=== PATIENT | female | born 1955 | race Caucasian/White ===

== ENCOUNTER 2017-08-28 08:09 | Outpatient (CLI) | payer BC ==
[2017-08-28] MEDS ORDERED: Sodium Chloride 0.9% 15 ML NEB ONE (09:00)
--- NOTE | 2017-08-28 09:11 | PRG ---
DATE OF SERVICE: 08/28/2017 HISTORY: Ms. Asuncion Grimaldo is a very pleasant 62-year-old [facility] now presents for evaluation of multiple blisters of the left groin and multiple ulcerations of the right and left medial buttocks. The patient states that she has been applying a topical antifungal preparation to the blisters of the left groin. 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 The patient states that she also sits for long periods of time at work. PHYSICAL EXAMINATION: VITAL SIGNS: Temperature 98.1, pulse 67, respirations 18, blood pressure 152/74. EXTREMITIES: Multiple blisters of the left groin are present in the intertriginous region of the lef t groin. No blisters are present in the intertriginous region of the right groin. BACK: Multiple ulcerations of the right and left medial buttocks associated with hypergranulation ar e present. ASSESSMENT AND PLAN: 1. Blisters of the left groin and lesions of right and left medial buttocks associated with hypergra nulation. The blisters and ulcerations are located in intertriginous regions. I have instructed the patient to apply the topical antifungal preparation to the lesions of the right and left medial butt ocks in addition to the blisters of the left groin after cleansing with soap and water and patting dr mayorga. She is also to dress the lesions with an ABD. The patient understands and is in agreement with t he preceding treatment plan. Ms. Leslie will return to clinic on a p.r.n. basis. 2. Hypertension. 3. Osteoarthritis. 4. Gastroesophageal reflux disease.
== END 2017-08-28 08:10 | disposition home or self-care (01) ==
LOC: WCC 08:09
PROVIDERS: ATTEND Family Medicine
DX: L98.419 Non-pressure chronic ulcer of buttock with unspecified severity (principal); S30.820A Blister (nonthermal) of lower back and pelvis, initial encounter; I10 Essential (primary) hypertension; M19.90 Unspecified osteoarthritis, unspecified site; K21.9 Gastro-esophageal reflux disease without esophagitis
CPT/HCPCS: 97602; 99212; A4218; G0463

== ENCOUNTER 2018-11-21 13:44 | Emergency (ER) | payer BC ==
--- NOTE | 2018-11-21 14:15 | RAD ---
2 VIEWS RIGHT HIP: Date: 11/21/18 COMPARISON: None. HISTORY: Mechanical fall with right hip pain. FINDINGS: Two views of the right hip are limited secondary to patient's large body habitus. There is no evidenc e of fracture or dislocation. No significant degenerative change is seen in the right hip. IMPRESSION: No evidence of acute osseous abnormality. POS: TPC
--- NOTE | 2018-11-21 16:10 | CT ---
FCT Lower Ext Rt WO Con History:Fall with right hip pain Comparison: Plain film examination done earlier today. Findings: There is an avulsion fracture which is at or possibly slightly above the level the anterior superior iliac spine of the iliac crest. There is also an incompletely healed fracture of the right side of the symphysis bony changes and some sclerosis along the fracture line suggests this is probab ly an older avulsive type injury although there could be some acute on chronic element. There are mild arthritic changes of the right hip. No femoral neck fractures appreciated. The bones are diffusely demineralized. There is generalized muscle atrophy, this is particularly pron ounced in the tensor fascial nguyen and inferior aspect of the rectus femoris muscles. Impression: Avulsion type fracture involving the region of the anterior superior iliac spine. This is felt to probably be acute. 2. Deformity to the right side of the symphysis which is favored to represent an older insufficiency type fracture, incompletely healed.
== END 2018-11-21 18:48 | disposition home or self-care (01) ==
LOC: ERS 13:44
DX: S32.311A Displaced avulsion fracture of right ilium, initial encounter for closed fracture (principal); I10 Essential (primary) hypertension; F32.9 Major depressive disorder, single episode, unspecified; Z79.899 Other long term (current) drug therapy; X50.1XXA Overexertion from prolonged static or awkward postures, initial encounter

== ENCOUNTER 2019-01-28 17:58 | Inpatient (IN) | payer BC, OTHER ==
--- NOTE | 2019-01-28 18:34 | CT ---
EXAM: CT brain without contrast HISTORY: Altered mental status COMPARISON: None TECHNIQUE: Multiple contiguous axial images were obtained and a CT of the brain without contrast. FINDINGS: There are subtle scattered hypodensities in the subcortical and periventricular white matte r consistent with small vessel ischemic disease. There is no evidence of hydrocephalus, intracranial hemorrhage, or extra-axial fluid collection. The calvarium and overlying soft tissues are unremarkable. The visualized paranasal sinuses and masto id air cells are well aerated. IMPRESSION: No evidence of acute intracranial abnormality
[2019-01-28 19:03] LABS: #Lymphocytes 2.1 thou/uL (1.20-3.40); #Monocytes 0.9 thou/uL (0.11-0.59); #Neutrophils 10.5 thou/uL (1.40-6.50); %Basophils 0.1 % (0.0-1.0); %Eosinophils 0.3 % (0.0-10.0); %Lymphocytes 15.2 % (21.0-51.0); %Monocytes 6.8 % (0.0-10.0); %Neutrophils 77.7 % (42.0-75.0); Hemoglobin 9.5 g/dL (12.0-16.0); Mean Corpuscular HGB CONC 32.1 g/dL (32.0-36.0); Mean Corpuscular Volume 90.1 fL (78.0-98.0); Mean Platelet Volume 7.4 fL (7.4-10.4); Platelet Count 264 thou/uL (130-400); RBC Distribution Width 14.7 % (11.5-14.5); White Blood Cell (WBC) Count 13.5 thou/uL (4.8-10.8)
--- NOTE | 2019-01-28 19:03 | RAD ---
EXAM: Single view of the chest HISTORY: Altered mental status; sepsis COMPARISON: None FINDINGS: Single view of the chest shows a normal sized cardiomediastinal silhouette. Atheroscleroti c calcifications are seen in the aorta. There is a PICC line with its tip in the superior vena cava. There is no evidence of consolidation, mass, or pleural effusion. The bones are unremarkable. IMPRESSION: No evidence of acute cardiopulmonary disease
[2019-01-28 19:29] LABS: ALT (SGPT) 17 U/L (8-55); AST (SGOT) 70 U/L (5-34); Albumin 3.9 g/dL (3.4-4.8); Alkaline Phosphatase 95 U/L (40-150); Anion Gap 17 mmol/L (10-20); BUN (Urea Nitrogen) 24 mg/dL (9.8-20.1); Bilirubin, Total 0.5 mg/dL (0.2-1.2); Calc. Creatinine Clearance 0 mL/min (70-130); Calcium 9.6 mg/dL (7.8-10.44); Carbon Dioxide 23 mmol/L (23-31); Chloride 91 mmol/L (98-107); Estimated GFR-MDRD 38; Globulin 3.9 g/dL (2.4-3.5); Glucose 98 mg/dL (80-115); Potassium 4.9 mmol/L (3.5-5.1); Protein, Total 7.8 g/dL (6.0-8.3); Sodium 126 mmol/L (136-145)
[2019-01-28 19:49] LABS: Bilirubin Negative (Negative); Blood, Urine Trace (Negative); Clarity CLOUDY (Clear); Glucose, Urine (Dipstick) Negative (Negative); Leukocyte Moderate (Negative); Nitrite Negative (Negative); Protein, Urine (Dipstick) 100 mg/dL (Neg-Trace); Specific Gravity, Urine 1.018 (1.002-1.036); Urobilinogen 0.2 mg/dL (0.2-1.0)
[2019-01-28 19:54] LABS: Bacteria/HPF 1+ HPF (None Seen); Hyaline Casts/LPF 0-3 HYALINE CAST LPF (0-3 Hyaline); RBC/HPF 21-50 HPF (0-3); Squamous Epithelial 0-3 HPF (0-3); WBC/HPF 21-50 HPF (0-3)
[2019-01-28] MEDS ORDERED: MEROPENEM 1 GM/50 ML 1 GM in Premix Bag 1 BAG IVPB SCH (22:45)
--- NOTE | 2019-01-28 23:44 | HP ---
PRIMARY CARE PHYSICIAN: Dr. Hammer. PRIMARY INFECTIOUS DOCTOR: Dr. Toro. REASON FOR ADMISSION: Sent from senior care for encephalopathy. HISTORY OF PRESENT ILLNESS: This is a 63-year-old female, who has lumbar spine infection and she has PICC line and she is getting IV antibiotic therapy. She was recently admitted about 2-3 weeks ago and subsequently, she was discharged to [facility] for IV antibiotic therapy. She was getting Teflaro as well as daptomycin antibiotic therapy through PICC line for the last 2 to 3 weeks. Even she was getting IV antibiotic therapy for last week, the patient is gradually getting worse with mental status elena, she was hallucinating. She was confused. She was becoming more and more weak. She is normally wheelchair bound, but she was having more shortness of breath. She was wheezing at senior care. She was having poor appetite. She did not have any diarrhea. The patient's family member also noticed rash over both feet. The patient was becoming more and more confused and that is why family member concerned about and that is why they brought her to emergency room for evaluation. This patient has chronic spine infection and she required multiple times antibiotic therapy in the past as well. REVIEW OF SYSTEMS: CONSTITUTIONAL: Negative for weight loss or gain, ability to conduct usual activities. SKIN: Negative for rash, itching. EYES: Negative for double vision, pain. ENT/MOUTH: Negative for nose bleeding, neck stiffness, pain, tenderness. CARDIOVASCULAR: Negative for palpitations, dyspnea on exertion, orthopnea. RESPIRATORY: Negative for shortness of breath, wheezing, cough, hemoptysis, fever or night sweats. GASTROINTESTINAL: Negative for poor appetite, abdominal pain, heartburn, nausea , vomiting, constipation, or diarrhea. GENITOURINARY: Negative for urgency, frequency, dysuria, nocturia. MUSCULOSKELETAL: Negative for pain, swelling. NEUROLOGIC/PSYCHIATRIC: Negative for anxiety, depression. ALLERGY/IMMUNOLOGIC: Negative for skin rash, bleeding tendency. All review of systems mentioned above is not reliable because of encephalopathy. 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 PAST PSYCHIATRIC HISTORY: Anxiety and depression. PAST SURGICAL HISTORY: Right great toe surgery and PICC line placement. FAMILY HISTORY: No family history of coronary artery disease, stroke, or cancer. ALLERGIES: LEVAQUIN, PENICILLIN, AND MORPHINE. CURRENT HOME MEDICATIONS: The patient was gettin. Amlodipine 10 mg daily. 2. Metoprolol 25 mg twice daily. 3. Calcium 1 tablet twice daily. 4. Vitamin B12 1000 mcg p.o. daily. 5. Flexeril 10 mg t.i.d. p.r.n. 6. Folic acid 1 mg daily. 7. Hydralazine 25 mg t.i.d. 8. Hydrochlorothiazide 25 mg p.o. daily. 9. Levothyroxine 25 mcg p.o. daily. 10. Multivitamin one tablet p.o. daily. 11. Protonix 40 mg daily. 12. Paxil 10 mg daily. 13. Prednisone 20 mg daily. 14. Thiamine 100 mg p.o. daily. 15. The patient was on Teflaro and daptomycin for IV antibiotic therapy. EMERGENCY ROOM COURSE: The patient is receiving meropenem. The patient is given DuoNeb therapy. SOCIAL HISTORY: Pt is from [facility], no history of tobacco, alcohol or drug abuse. PHYSICAL EXAMINATION: VITAL SIGNS: Currently, blood pressure 152/102, pulse 85, respiratory rate 25, temperature 98.4, saturation 100% on room air, weight 95.3 kg. GENERAL: The patient is currently hallucinating, confused, intermittently responds properly, but most of the time she is hallucinating and confused. HEENT: Head; normocephalic, atraumatic. Eyes; pupils round and reactive to light. Extraocular muscle intact. ENT; oropharynx within normal limits. Moist mucous membranes. NECK: Supple. Mostly wheezing comes from upper airway. LUNGS: Clear on auscultation without any gross rhonchi or rales. CARDIAC: S1, S2 appears regular without any murmur. ABDOMEN: Obesity present. Bowel sounds present. Nontender. Nondistended. No organomegaly. No mass. Mild suprapubic discomfort noted. EXTREMITIES: Upper extremities; PICC line in place in the right arm, clean, dry , and intact. Upper extremities within normal limit. Lower extremities, the patient does have a petechial rash on both feet. Trace edema noted. No calf tenderness. SKIN: Petechial rash noted on feet. PSYCHIATRIC: Hallucinating. NEUROLOGIC: Grossly nonfocal examination. She is moving all 4 limbs. SIGNIFICANT LABORATORY DATA: EKG showing normal sinus rhythm, within normal limits. Head CT, based on my review no acute intracranial process. Chest x-ray based on my review, no acute cardiopulmonary process. CBC; WBC 13.5, hemoglobin 9.5, platelet 264 with left shift. BMP; sodium 126, potassium 4.9, chloride 91, carbon dioxide 23, anion gap 17, BUN 24, creatinine 1.40, glucose 98, calcium 9.6, lactic acid 1.1, LFT; AST 70, ALT 17, alkaline phosphatase 95, albumin 3.9. BNP 224.5. Troponin 0.012. Urinalysis consistent with urinary tract infection. ASSESSMENT AND PLAN: Impression: 1. Acute metabolic and septic encephalopathy. The patient has hyponatremia, urinary tract infection. She has methicillin-resistant Staphylococcus aureus epidural abscess and she is on different antibiotic therapy, all contributing to her altered mental status. 2. Urinary tract infection. We will continue with meropenem one 500 mg IV q.8 hourly. We will consult Dr. Toro for IV antibiotic therapy management. 3. Epidural abscess in lumbar spine. The patient is on jail IV antibiotic therapy through the Peripherally inserted central catheter line. We will continue Teflaro and daptomycin. We will check total CK. We will consult Dr. Toro and Dr. Toro' opinion will be appreciated. 4. Anemia of chronic disease. We will continue folic acid and vitamin B12 therapy. 5. Sepsis secondary to urinary tract infection as well as epidural abscess. 6. Chronic kidney disease stage 3. We will monitor renal function. Avoid nephrotoxin agent. 7. Dyspnea. The patient's wheezing is coming from upper airway tract. Her BNP is elevated. We will check echocardiography to assess EF and other structural abnormality. The patient will be given DuoNeb therapy. I will also give her Lasix 40 mg IV one time dose in case patient has volume overload status. 8. Hypertension. We will monitor closely. We will continue with the patient's home medication including amlodipine and metoprolol. 9. Anxiety and depression. The patient's home medication Paxil will be continued while in hospital. 10. Chronic low back pain. The patient's pain will be controlled with simple pain medication. We will avoid narcotics. 11. Deep venous thrombosis prophylaxis. Lovenox 40 mg subcutaneous daily. 12. GI prophylaxis. Pepcid 20 mg p.o. b.i.d. CODE STATUS: The patient is full code. The patient's daughter is surrogate decision maker. DISPOSITION PLAN: Based on clinical course, we are expecting the patient's stay in hospital more than 2 midnights. The patient will need PT, OT, and plan of care discussed with the patient and family member in detail. We will closely monitor on telemetry floor. Job ID: [id number] MTDD
[2019-01-29] MEDS ORDERED: Ondansetron PF 4 MG/2 ML Vial IVP PRN ×2 (00:53→01:06)
[2019-01-29] MEDS ORDERED: Ondansetron ODT 4 MG TAB SL PRN (00:53)
[2019-01-29] MEDS ORDERED: Acetaminophen 325 MG TAB PO PRN (00:53)
[2019-01-29] MEDS ORDERED: Senokot S 8.6-50 MG TAB PO PRN (01:06)
[2019-01-29] MEDS ORDERED: Guaifenesin DM 100-10/5 ML UDCUP PO PRN (01:06)
[2019-01-29] MEDS ORDERED: Ondansetron ODT 4 MG TAB PO PRN (01:06)
[2019-01-29] MEDS ORDERED: Loperamide HCl 2 MG CAP PO PRN (01:06)
[2019-01-29 04:44] LABS: #Basophils 0.1 thou/uL (0.0-0.2); #Eosinphils 0.2 thou/uL (0.0-0.7); #Lymphocytes 3.2 thou/uL (1.20-3.40); #Monocytes 1.8 thou/uL (0.11-0.59); %Basophils 0.3 % (0.0-1.0); %Eosinophils 0.9 % (0.0-10.0); %Lymphocytes 18.7 % (21.0-51.0); %Monocytes 10.5 % (0.0-10.0); %Neutrophils 69.7 % (42.0-75.0); Hemoglobin 8.2 g/dL (12.0-16.0); Mean Corpuscular HGB CONC 31.7 g/dL (32.0-36.0); Mean Corpuscular Hemoglobin 28.6 pg (27.0-31.0); Mean Corpuscular Volume 90.1 fL (78.0-98.0); Mean Platelet Volume 7.6 fL (7.4-10.4); Platelet Count 263 thou/uL (130-400); RBC Distribution Width 14.6 % (11.5-14.5); Red Blood Cell (RBC) Count 2.86 mill/uL (4.20-5.40); White Blood Cell (WBC) Count 17.2 thou/uL (4.8-10.8)
[2019-01-29 05:05] LABS: ALT (SGPT) 18 U/L (8-55); AST (SGOT) 62 U/L (5-34); Albumin 3.4 g/dL (3.4-4.8); Alkaline Phosphatase 84 U/L (40-150); Anion Gap 14 mmol/L (10-20); BUN (Urea Nitrogen) 22 mg/dL (9.8-20.1); Bilirubin, Total 0.4 mg/dL (0.2-1.2); CK (CPK) 693 U/L (29-168); CRP (Inflammatory) 14.86 mg/dL (= or < 0.5); Calc. Creatinine Clearance 74 mL/min (70-130); Calcium 9.4 mg/dL (7.8-10.44); Carbon Dioxide 27 mmol/L (23-31); Chloride 93 mmol/L (98-107); Estimated GFR-MDRD 40; Globulin 3.3 g/dL (2.4-3.5); Glucose 65 mg/dL (80-115); Potassium 4.9 mmol/L (3.5-5.1); Protein, Total 6.7 g/dL (6.0-8.3); Sodium 129 mmol/L (136-145)
[2019-01-29] MEDS: Levothyroxine Sodium 25 MCG TAB PO SCH (05:26)
[2019-01-29] MEDS ORDERED: Furosemide 20 MG/2 ML VIAL SLOW IVP SCH (06:00)
[2019-01-29] MEDS ORDERED: Meropenem 500 MG in Sodium Chloride 0.9% 100 ML IVPB SCH (06:00)
[2019-01-29] MEDS ORDERED: DAPTOmycin 500 MG in Sodium Chloride 0.9% 100 ML IVPB SCH (08:00)
[2019-01-29] MEDS ORDERED: Famotidine 20 MG TAB PO SCH (09:00)
[2019-01-29] MEDS ORDERED: Cyanocobalamin (Vitamin B-12) 1,000 MCG TAB PO SCH (09:00)
[2019-01-29] MEDS ORDERED: Enoxaparin Sodium 40 MG/0.4 ML SYRINGE SC SCH (09:00)
[2019-01-29] MEDS ORDERED: SODIUM CHLORIDE 0.9% IVPB SCH (09:00)
[2019-01-29] MEDS ORDERED: Hydrochlorothiazide 25 MG TAB PO SCH (09:00)
[2019-01-29] MEDS ORDERED: CEFTAROLINE IVPB SCH (09:00)
[2019-01-29] MEDS ORDERED: Folic Acid 1 MG TAB PO SCH (09:00)
[2019-01-29] MEDS ORDERED: Albuterol Sulfate 1.25 MG/3 ML NEB NEB PRN (09:07)
[2019-01-29] MEDS: PARoxetine 20 MG TAB PO SCH (09:43)
[2019-01-29] MEDS: Multivitamin W/ Minerals 1 TAB PO SCH ×2 (09:45→10:05)
[2019-01-29] MEDS ORDERED: Sodium Chloride 0.9% 1,000 ML IV SCH (09:45)
[2019-01-29] MEDS: Amlodipine 10 MG TAB PO SCH (09:46)
[2019-01-29] MEDS: Calcium Carbonate 600 MG TAB PO SCH ×3 (09:47→20:30)
[2019-01-29] MEDS: Thiamine 100 MG TAB PO SCH ×2 (09:47→11:34)
[2019-01-29] MEDS: Folic Acid 1 MG TAB PO SCH ×2 (09:47→10:05)
[2019-01-29] MEDS: Cyanocobalamin (Vitamin B-12) 1,000 MCG TAB PO SCH ×2 (09:48→11:34)
--- NOTE | 2019-01-29 09:48 | PDOC.PN ---
- Subjective Encounter Start Date: 01/29/19 (f/u encephalopathy) Encounter Start Time: 09:46 Subjective: Called by RN for tachypnea, altered, and generally worsening. Sister -: reports a significant change in affect - progressive worsening. Recent hos -: at the [facility] for epidural abscess and on ceftaroline and daptomycin - Objective Resuscitation Status - Order Detail: 01/28/19 23:12 Resuscitation Status Routine Resuscitation Status: FULL: Full Resuscitation Vital Signs & Weight: Vital Signs (12 hours) Temp Pulse Resp BP BP Pulse Ox 01/29/19 09:00 99 32 H 159/75 H 98 01/29/19 07:30 99.1 F 99 24 H 180/83 H 96 01/29/19 06:53 98 20 99 01/29/19 04:00 98 F 92 14 119/63 93 L 01/29/19 02:30 93 L 01/29/19 02:28 91 20 100 01/29/19 01:13 98.6 F 93 22 H 130/72 95 Weight Weight 242 lb 7 oz I&O: 01/28/19 01/29/19 01/30/19 06:59 06:59 06:59 Intake Total 280 Balance 280 Result Diagrams: 01/29/19 04:11 01/29/19 04:11 EKG Reviewed by me: Yes (tele - sinus 100's) Phys Exam - Physical Examination Constitutional: NAD Respiratory: no wheezing, no rales, no rhonchi wheezing, fair air movement Cardiovascular: RRR, no significant murmur Gastrointestinal: soft, non-tender, positive bowel sounds generalized restlessness and movement of arms/legs Deviation from normal: mumbled speech, frequent grunting Dx/Plan (1) Epidural abscess Code(s): G06.2 - EXTRADURAL AND SUBDURAL ABSCESS, UNSPECIFIED Status: Acute (2) Anemia Code(s): D64.9 - ANEMIA, UNSPECIFIED Status: Acute Qualifiers: Anemia type: unspecified type Qualified Code(s): D64.9 - Anemia, unspecified (3) Acute respiratory failure Code(s): J96.00 - ACUTE RESPIRATORY FAILURE, UNSP W HYPOXIA OR HYPERCAPNIA Status: Acute Qualifiers: Respiratory failure complication: hypoxia Qualified Code(s): J96.01 - Acute respiratory failure with hypoxia (4) Acute metabolic encephalopathy Code(s): G93.41 - METABOLIC ENCEPHALOPATHY Status: Acute (5) GERD (gastroesophageal reflux disease) Code(s): K21.9 - GASTRO-ESOPHAGEAL REFLUX DISEASE WITHOUT ESOPHAGITIS Status: Chronic (6) Hypertension Code(s): I10 - ESSENTIAL (PRIMARY) HYPERTENSION Status: Chronic - Plan * Pt with concerning symptoms that are likely multifactorial * Pulm - will order VQ scan, IV steroids as she is on this per her H&P and chest is tight. continue scheduled nebs and add prn, oxygen supplementation * Anemia - worsening since yesterdya - type and screen, monitor, d/c lovenox * Cards - bp controlled - continue home meds. * ID - Dr. Toro to see today, blood cultures were drawn. Will hold ceftaroline and daptomycin. Given known MRSA, will start Vanc with pharmacy to dose * Endo - check blood sugars, IVF hydraiton, monitor hyponatremia which is mild and would not expect these sx from it. Check magnesium, phos and ammonia levels * - bladder scan if needed - RN reports pt has voided multiple times\ * transfer to IMCU * * dvt prophy - scd's * gi prophy - change to IV PPI as steroids changed to IV * code status full * * Will discuss plan with sister as she is available. * Pt at high risk in current condition * Blood sugar this morning was 65 - stat recheck and change IVF to D5NS, D50 if needed, and magnesium level is 1.0 - 4 grams IV magnesium now. Discussed with charge nurse.
[2019-01-29] MEDS: hydrALAZINE 25 MG TAB PO SCH ×3 (09:49→20:25)
[2019-01-29] MEDS: Saccharomyces boulardii 250 MG CAP PO SCH (09:50)
[2019-01-29] MEDS: Metoprolol Tartrate 25 MG TAB PO SCH ×3 (10:03→20:25)
[2019-01-29 10:10] LABS: Phosphorus 3.9 mg/dL (2.3-4.7)
[2019-01-29] MEDS ORDERED: Magnesium 2 GM/50 ML 4 GM in Premix Bag 1 BAG IVPB SCH (10:30)
[2019-01-29] MEDS ORDERED: Dextrose 50% Abboject 50 ML SYRINGE SLOW IVP PRN (10:31)
[2019-01-29] MEDS ORDERED: Dextrose 50% Abboject 50 ML SYRINGE ONE (10:36)
[2019-01-29] MEDS ORDERED: Dextrose 50% Abboject 50 ML SYRINGE SLOW IVP SCH (10:45)
[2019-01-29] MEDS ORDERED: Magnesium Sulfate 4 GM in Sodium Chloride 0.9% 250 ML 250 ML IVPB SCH (10:45)
[2019-01-29] MEDS: Dextrose 5 % And 0.9 % NaCl 1,000 ML IV SCH ×2 (10:59→22:36)
[2019-01-29] MEDS: Pantoprazole 40 MG VIAL IVP SCH (11:57)
[2019-01-29] MEDS: MEROPENEM 1 GM/50 ML 1 GM in Premix Bag 1 BAG IVPB SCH ×2 (12:31→23:09)
[2019-01-29] MEDS: methylPREDNISolone Sod Succ 40 MG VIAL IVP SCH ×3 (12:38→23:09)
--- NOTE | 2019-01-29 13:47 | RAD ---
CHEST 1 VIEW: HISTORY: Respiratory failure. COMPARISON: 01/28/2019. FINDINGS: Cardiac silhouette is magnified by projection. Pulmonary vasculature accentuated by shallow inspirat ion. Mediastinum is midline with aortic calcification. Right upper extremity PICC partially visuali zed. Mild atelectasis at the left base is unchanged. Chronic changes of the left humeral neck that may represent old trauma and/or degenerative changes are stable. IMPRESSION: Stable radiographic appearance of the chest. POS: C
--- NOTE | 2019-01-29 14:05 | CON ---
DATE OF CONSULTATION: HISTORY OF PRESENT ILLNESS: Asuncion Leslie is a 63-year-old obese female, who was transferred from Telemetry Unit to the MICU with progressive metabolic encephalopathy, confusion, agitation, and difficulty breathing. However, she is answering questions in between her hallucination pretty appropriately. A sister works in the OR came up to give additional information. She had been in the [facility] for a period of time for Staph sepsis, felt to be secondary to disk disease, confirmed by Infectious Disease. She is a former smoker. This morning, her condition apparently got a lot worse and was transferred to the MICU. She denies any coughing or wheezing. In fact, she denies any difficulty breathing. She does complain of some back pain. PAST MEDICAL HISTORY: MRSA spinal disease, not a surgical candidate. History of apparently hypertension, hyperlipidemia, hypothyroidism, history of depression. She was in this hospital in August 2018 with a discharge diagnoses of pneumonia, encephalopathy, hyponatremia, sepsis, renal failure. PAST SURGICAL HISTORY: Surgeries have included otherwise right toe surgery. ALLERGIES: LEVAQUIN, PENICILLIN, AND MORPHINE. SOCIAL HISTORY: She is a former smoker. REVIEW OF SYSTEMS: Otherwise unremarkable. PHYSICAL EXAMINATION: VITAL SIGNS: Saturations are 96% on 3 L, blood pressure 143/80, pulse is 80, respirations 30, temperature is 99.1. CHEST: Bilateral rhonchi and wheezing. CARDIAC: Sinus tach. ABDOMEN: Soft. NEUROLOGIC: As noted, she moves all 4 extremities. She appears to be toxic metabolic. LABORATORY DATA: Creatinine 1.35, slightly elevated. Sodium 129. White count platelet count is normal. IMPRESSION: 1. Metabolic encephalopathy, possibly sepsis. 2. Azotemia. 3. Electrolyte imbalance. 4. Hypothyroidism. 5. Former smoker. 6. Chronic obstructive pulmonary disease. I would discontinue all diuretics. Echo is normal. Ongoing hyponatremia probably from hydrochlorothiazide. Antibiotics as per Infectious Disease. I agree with steroids, neb treatments, supportive care. We will follow while in the MICU. I discussed this with the sister. This is a 70-minute consultation note, 50% direct patient care. Job ID: [id number]
[2019-01-29] MEDS: Vancomycin HCl 1.5 GM in Sodium Chloride 0.9% 250 ML 300 ML IVPB SCH (14:50)
[2019-01-29] MEDS: Acetaminophen 325 MG TAB PO PRN ×2 (14:50→20:30)
[2019-01-29 16:00] LABS: Anion Gap 14 mmol/L (10-20); BUN (Urea Nitrogen) 22 mg/dL (9.8-20.1); Calc. Creatinine Clearance 70 mL/min (70-130); Calcium 9.2 mg/dL (7.8-10.44); Carbon Dioxide 26 mmol/L (23-31); Chloride 93 mmol/L (98-107); Estimated GFR-MDRD 37; Glucose 116 mg/dL (80-115); Potassium 4.7 mmol/L (3.5-5.1); Sodium 128 mmol/L (136-145)
--- NOTE | 2019-01-29 16:31 | NM ---
NUCLEAR MEDICINE VENTILATION/PERFUSION SCAN: (V/Q scan) DATE: 01/29/2019 HISTORY: 63-year-old female with stage III chronic kidney disease presents with tachypnea and respiratory fail ure. TECHNIQUE: Xenon-133 gas dose: 16.9 mCi Technetium 99m-MAA dose: 5.4 mCi The patient inhaled xenon-133 gas, and dynamic ventilation scintigraphy was performed. Technetium 99m -MAA was injected IV, and multiple perfusion scintigraphic images were obtained. FINDINGS: There are no moderate sized or large perfusion defects. There are no significant ventilation/perfusio n mismatches. IMPRESSION: Very low probability for pulmonary thromboembolism.
--- NOTE | 2019-01-29 19:15 | PDOC.EVN ---
Event Note - Event Note Event Note: patient re-evaluated, remains restless and grabbing at things/pulling off oxygen. Improved air movement with exam, no audible wheezing. Heart - normal s1/s2 without audible murmurs. Abd soft with present bowel sounds. Today: VQ scan - very low probability Magnesium 1.0 - replaced with 4 grams IV hypoglycemia this AM - started on D5NS and has received about 300 ml - normal blood sugars since then IV antibiotics - Vancomycin and Meropenem MRI cancelled - no focal deficits and do not think pt will lay still Blood cultures obtained on admission repeat sodium 128 at 15:00 Will order repeat bmp and mag level at 21:00 and determine any further replacement of mag and if IVF needed. RN reports pt is taking PO - about 500- 600 ml today. will order urine studies to eval hyponatremia
[2019-01-29] MEDS ORDERED: Vancomycin HCl 1 GM in Premix Bag 1 BAG IVPB SCH (21:00)
[2019-01-29 21:33] LABS: Anion Gap 14 mmol/L (10-20); BUN (Urea Nitrogen) 22 mg/dL (9.8-20.1); Calc. Creatinine Clearance 75 mL/min (70-130); Calcium 8.9 mg/dL (7.8-10.44); Carbon Dioxide 24 mmol/L (23-31); Chloride 92 mmol/L (98-107); Estimated GFR-MDRD 40; Glucose 136 mg/dL (80-115); Magnesium 2.1 mg/dL (1.6-2.6); Sodium 125 mmol/L (136-145)
[2019-01-30] MEDS ORDERED: Furosemide 40 MG/4 ML VIAL SLOW IVP SCH (02:00)
[2019-01-30] MEDS: Vancomycin HCl 1.5 GM in Sodium Chloride 0.9% 250 ML 300 ML IVPB SCH ×3 (02:35→14:31)
[2019-01-30 02:50] LABS: #Lymphocytes 1.2 thou/uL (1.20-3.40); #Monocytes 0.2 thou/uL (0.11-0.59); #Neutrophils 11.8 thou/uL (1.40-6.50); %Basophils 0.1 % (0.0-1.0); %Eosinophils 0.1 % (0.0-10.0); %Lymphocytes 9.1 % (21.0-51.0); %Monocytes 1.8 % (0.0-10.0); Hemoglobin 7.9 g/dL (12.0-16.0); Mean Corpuscular HGB CONC 31.7 g/dL (32.0-36.0); Mean Corpuscular Hemoglobin 28.7 pg (27.0-31.0); Mean Corpuscular Volume 90.7 fL (78.0-98.0); Mean Platelet Volume 7.3 fL (7.4-10.4); Platelet Count 211 thou/uL (130-400); RBC Distribution Width 14.5 % (11.5-14.5); Red Blood Cell (RBC) Count 2.76 mill/uL (4.20-5.40); White Blood Cell (WBC) Count 13.3 thou/uL (4.8-10.8)
[2019-01-30 03:16] LABS: Anion Gap 14 mmol/L (10-20); BUN (Urea Nitrogen) 22 mg/dL (9.8-20.1); Calc. Creatinine Clearance 78 mL/min (70-130); Carbon Dioxide 26 mmol/L (23-31); Chloride 93 mmol/L (98-107); Estimated GFR-MDRD 42; Glucose 114 mg/dL (80-115); Magnesium 2.3 mg/dL (1.6-2.6); Potassium 5.2 mmol/L (3.5-5.1); Sodium 128 mmol/L (136-145)
[2019-01-30 04:54] LABS: Creatinine, Urine 42.15 mg/dL (47-110)
[2019-01-30] MEDS: methylPREDNISolone Sod Succ 40 MG VIAL IVP SCH ×2 (05:34→17:16)
[2019-01-30] MEDS: Levothyroxine Sodium 25 MCG TAB PO SCH (05:35)
[2019-01-30] MEDS ORDERED: Dextrose 5 %-0.45 % NaCl 1,000 ML IV SCH (08:00)
--- NOTE | 2019-01-30 08:21 | PDOC.PN ---
- Subjective Encounter Start Date: 01/30/19 (f/u encephalopathy) Encounter Start Time: 08:20 Subjective: Pt remained restless overnight, fell asleep around 4 am today. -: Jackson placed and she received 1 dose of lasix. - Objective Resuscitation Status - Order Detail: 01/28/19 23:12 Resuscitation Status Routine Resuscitation Status: FULL: Full Resuscitation Vital Signs & Weight: Vital Signs (12 hours) Temp Pulse Resp BP Pulse Ox 01/30/19 07:19 97.0 F L 89 28 H 99 01/30/19 03:51 97.2 F L 01/29/19 23:50 97.0 F L 01/29/19 20:25 89 144/77 H Weight Weight 242 lb 7 oz Most Recent Monitor Data Heart Rate from ECG 86 NIBP 119/69 NIBP BP-Mean 85 Respiration from ECG 21 SpO2 87 I&O: 01/29/19 01/30/19 01/31/19 06:59 06:59 06:59 Intake Total 280 2181 Output Total 600 Balance 280 1581 Result Diagrams: 01/30/19 01:49 01/30/19 01:49 Additional Labs: Accuchecks 01/30/19 01/30/19 01/30/19 07:57 05:13 00:48 POC Glucose 121 H 119 H 134 H 01/29/19 01/29/19 01/29/19 20:14 17:31 10:38 POC Glucose 152 H 127 H 89 EKG Reviewed by me: Yes (tele - sinus 80's) Phys Exam - Physical Examination Constitutional: NAD Respiratory: no wheezing, no rales, no rhonchi improved air movement today Cardiovascular: RRR 2/6 EMILE Gastrointestinal: soft, non-tender, no distention, positive bowel sounds Musculoskeletal: no edema opens eyes to voice then falls asleep again Deviation from normal: unable to assess - not waking pt Deviation from normal: resolving petechiae along sock line of both feet. Multiple small -: areas of ecchymosis along arms Dx/Plan (1) Bacteremia Code(s): R78.81 - BACTEREMIA Status: Acute (2) Anemia Code(s): D64.9 - ANEMIA, UNSPECIFIED Status: Acute Qualifiers: Anemia type: unspecified type Qualified Code(s): D64.9 - Anemia, unspecified (3) Acute respiratory failure Code(s): J96.00 - ACUTE RESPIRATORY FAILURE, UNSP W HYPOXIA OR HYPERCAPNIA Status: Acute Qualifiers: Respiratory failure complication: hypoxia Qualified Code(s): J96.01 - Acute respiratory failure with hypoxia (4) Acute metabolic encephalopathy Code(s): G93.41 - METABOLIC ENCEPHALOPATHY Status: Acute (5) GERD (gastroesophageal reflux disease) Code(s): K21.9 - GASTRO-ESOPHAGEAL REFLUX DISEASE WITHOUT ESOPHAGITIS Status: Chronic (6) Hypertension Code(s): I10 - ESSENTIAL (PRIMARY) HYPERTENSION Status: Chronic - Plan * Reviewed records from [facility] - bacteremia secondary to MRSA * On Vanc with pharmacy dosing * ID consult placed * Consult placed for Nephrology/hyponatremia * Appreciate Pulmonology consult * Concern for UTI - on Meropenem * Abx she was on were d/c - daptomycin and ceftaroline * Encephalopathy - likely multifactoria * Hypoxia * very low prob VQ scan * Anemia - slightly worse - no active bleeding - recheck this afternoon * Mild hyperkalemia - recheck this afternoon * mag replaced * continue checking blood sugars * * dvt prophy - scd's * gi prophy - change to IV PPI as steroids changed to IV * code status full * * Pt at high risk in current condition
--- NOTE | 2019-01-30 08:29 | PRG ---
DATE OF SERVICE: 01/30/2019 SUBJECTIVE: Asuncion Leslie remains encephalopathic this morning, but appears to be in no distress. OBJECTIVE: VITAL SIGNS: Her saturations are 99% on 2 L, respirations 28, pulse 89, temperature 97, blood pressure 119/69. CHEST: No wheezing or crackles. CARDIAC: Normal S1 and S2. No gallops. ABDOMEN: No masses. LABORATORY DATA: Her creatinine has improved to 1.28. Sodium is better at 128, potassium 5.2. A V/Q scan was ordered, which was negative. Chest x-ray shows no acute infiltrates. IMPRESSION: 1. Metabolic encephalopathy. 2. Hyponatremia, probably secondary to medication. 3. Staphylococcus sepsis. PLAN: I will decrease her steroids. Discontinue all diuretics. Continue PT and supportive care. We will follow while in the MICU. Antibiotics need to be de-escalated as per Infectious Disease. Job ID: [id number]
[2019-01-30] MEDS: Amlodipine 10 MG TAB PO SCH (10:53)
[2019-01-30] MEDS: MEROPENEM 1 GM/50 ML 1 GM in Premix Bag 1 BAG IVPB SCH (10:53)
[2019-01-30] MEDS: Pantoprazole 40 MG VIAL IVP SCH (10:53)
[2019-01-30] MEDS: Calcium Carbonate 600 MG TAB PO SCH ×2 (10:54→20:01)
[2019-01-30] MEDS: hydrALAZINE 25 MG TAB PO SCH ×3 (10:54→20:01)
[2019-01-30] MEDS: Folic Acid 1 MG TAB PO SCH (10:54)
[2019-01-30] MEDS: Cyanocobalamin (Vitamin B-12) 1,000 MCG TAB PO SCH (10:54)
[2019-01-30] MEDS: Multivitamin W/ Minerals 1 TAB PO SCH (10:54)
[2019-01-30] MEDS: Metoprolol Tartrate 25 MG TAB PO SCH ×2 (10:54→20:01)
[2019-01-30] MEDS: Saccharomyces boulardii 250 MG CAP PO SCH (10:55)
[2019-01-30] MEDS: Thiamine 100 MG TAB PO SCH (10:55)
[2019-01-30] MEDS: PARoxetine 20 MG TAB PO SCH (10:55)
[2019-01-30 13:54] LABS: Hemoglobin 7.7 g/dL (12.0-16.0)
[2019-01-30 14:16] LABS: Anion Gap 15 mmol/L (10-20); BUN (Urea Nitrogen) 23 mg/dL (9.8-20.1); Calc. Creatinine Clearance 84 mL/min (70-130); Calcium 9.1 mg/dL (7.8-10.44); Carbon Dioxide 25 mmol/L (23-31); Chloride 93 mmol/L (98-107); Estimated GFR-MDRD 46; Glucose 118 mg/dL (80-115); Potassium 4.4 mmol/L (3.5-5.1); Sodium 129 mmol/L (136-145)
--- NOTE | 2019-01-30 16:04 | CON ---
DATE OF CONSULTATION: 01/30/2019 CONSULTING PHYSICIAN: Dr. Radha Rubin. REASON FOR CONSULTATION: Hyponatremia and acute encephalopathy. HISTORY OF PRESENT ILLNESS: A 63-year-old obese female, care home resident, with recent diagnosis of lumbar spine diskitis, osteomyelitis, on long-term IV antibiotics via a right-sided arm PICC line, who was brought in from the care home due to worsening confusion and hallucination. The patient reportedly was noticed by relatives to be more confused and also was having hallucination. There was also concern about shortness of breath and wheezing as well as poor oral intake. The patient on evaluation in the ER was found to have features suggestive of urinary tract infection and also was found to have hyponatremia with plasma sodium of 126. Nephrology is consulted today due to worsening/persistent hyponatremia as well as persistent confusion. The patient initially was admitted to the telemetry, but due to worsening confusion was transferred to the IMCU yesterday. Of note, history was obtained by review of medical record as the patient was unable to provide any significant history due to the patient's mental status. It is reported that the patient is wheelchair bound at baseline. Nursing staff reported the patient has been sleeping today since morning, and she seems more drowsy/lethargic today compared to yesterday. There has been no history of fever, nausea, vomiting, or change in bowel habit. PAST MEDICAL HISTORY: 1. 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 2. Hypertension. 3. Gastroesophageal reflux disease. 4. Morbid obesity. 5. Chronic physical deconditioning. 6. Anemia of chronic disease. 7. CKD, stage 3. 8. Anxiety and depression. PAST SURGICAL HISTORY: 1. Right great toe surgery. 2. PICC line placement. FAMILY HISTORY: This could not be obtained. The review of medical record showed that there was no history of coronary artery disease, stroke, or cancer in family. SOCIAL HISTORY: The patient currently lives in a longterm facility. There is no history of tobacco, alcohol, or drug use. ALLERGIES: 1. LEVAQUIN. 2. PENICILLIN. 3. MORPHINE. MEDICATIONS: Prior to hospital medications: 1. Acetaminophen 650 mg p.o. q.4 p.r.n. 2. Hydrocodone/acetaminophen 1 tablet q.6 p.r.n. for pain. 3. Zofran 4 mg q.8 p.r.n. for nausea and vomiting. 4. Teflaro 400 mg IV piggyback q.12 hours. 5. Amlodipine 10 mg p.o. daily. 6. Calcium carbonate 1200 mg p.o. b.i.d. 7. Cyanocobalamin 1000 mcg p.o. daily. 8. Daptomycin 700 mg daily. 9. Folic acid 1 tablet p.o. daily. 10. Guaifenesin DM 5 mL p.o. t.i.d. p.r.n. 11. Hydralazine 25 mg p.o. t.i.d. 12. Hydrochlorothiazide 25 mg p.o. daily. 13. Levothyroxine 25 mcg p.o. daily. 14. Loperamide 2 mg p.o. p.r.n. for diarrhea. 15. Metoprolol tartrate 25 mg p.o. daily. 16. Multivitamin with minerals 1 tablet p.o. daily. 17. Protonix 40 mg p.o. b.i.d. 18. Paroxetine 10 mg p.o. daily. 19. Prednisone 20 mg p.o. daily. 20. Thiamine 100 mg p.o. daily. 21. Cyclobenzaprine 10 mg p.o. t.i.d. REVIEW OF SYSTEMS: This could not be extensively obtained due to the patient's factors. She, however, denied nausea, vomiting, or diarrhea as noted in the history of present illness. Other components, however, were negative. PHYSICAL EXAMINATION: VITAL SIGNS: Today showed temperature 96.4, pulse 86, respiratory rate 22, SpO2 of 100% on room air, blood pressure 150/74. GENERAL: Chronically ill-looking, fatigued, elderly female, in no obvious distress. Afebrile. Anicteric. Acyanotic. HEENT: Normocephalic and atraumatic. Alopecia noted. Pupils are 4 to 5 mm and reacting to light. Oral mucosa is mildly dry. NECK: Supple with no obvious masses or lymphadenopathy. RESPIRATORY: Fair air entry bilaterally with scattered wheezes noticed on all lung zones. No obvious crackle was appreciated. Work of breathing is increased mildly. CARDIOVASCULAR: Regular rhythm and rate with normal heart sounds 1 and 2. GI: Abdomen is obese, soft, nontender, and nondistended with normal bowel sounds. UROGENITAL: Jackson catheter is in place draining clear urine. EXTREMITIES: Scattered ecchymoses and bruises on both forearms. No obvious erythema was appreciated in all the extremities. No obvious edema also was appreciated. The patient moves all extremities, but weakly. NEUROLOGIC: Sleeping, but arousable. The patient is at least oriented to person and place. She, however, had memory lapses and was unable to tell me why she is in the hospital. Cranial nerves 2 through 12 are intact. The patient has some dysarthria/dysphonia of questionable etiology. DIAGNOSTIC DATA: CBC today showed WBC count of 13.3, hemoglobin of 7.9, MCV of 90.7, platelet of 211. On presentation on January 28, WBC was 13.5, hemoglobin was 9.5, and platelet was 264. Blood chemistry performed earlier today showed sodium 128, potassium 5.2, chloride 93, CO2 of 26, anion gap 14, BUN 22, creatinine 1.28, glucose 114, calcium 9.0. On presentation on January 28, 2019, sodium was 126, potassium 4.9, chloride 91, CO2 of 23, creatinine 1.40. Review of medical records showed the patient has CKD with creatinine ranging from 1.05 to 1.3 in the last 2 years. It also showed that the patient has intermittent hyponatremia with a marty of 123 since about 2 to 3 years. She, however, had episodes of normal blood sodium. Today, blood plasma osmolality 277. Urine osmolality 417. Urine sodium 71. Urine creatinine 42.15. Urinalysis performed on presentation showed yellow cloudy urine with pH of 6.0, specific gravity of 1.018, positive protein, trace blood, and moderate leukocyte esterase. Microscopy showed 21 to [address] brain performed on presentation showed subtle scattered hypodensities in the subcortical and periventricular white matter consistent with small-vessel ischemic disease, but there was no evidence of hydrocephalus, intracranial hemorrhage, extra-axial fluid collection, or acute intracranial abnormality. Chest x-ray performed on presentation showed no evidence of acute pulmonary disease, and repeat chest x-ray on January 29, also showed stable radiographic appearance of the chest. V/Q scan performed on January 29, was very low probability for pulmonary embolism. Echocardiogram performed on January 29, showed preserved systolic function with EF of 60 to 65 with grade 1/3 diastolic dysfunction. ASSESSMENT: 1. Hyponatremia: Increased urine osmolality above 400 in the face of hypoosmolality of 277 and low sodium is consistent with inappropriate antidiuretic hormone secretion. The patient has a lot of factors that could lead to this. She has chronic illness as well as chronic use of paroxetine and hydrochlorothiazide. In addition, the patient has been on hypotonic solution D5 half-normal saline since yesterday. Hydrochlorothiazide has been discontinued since admission, but the patient continues to be on paroxetine. We will discontinue hypotonic solution and commence 1 L fluid restriction. We will also get repeat BMP now and follow that subsequently. 2. Acute encephalopathy given excessive drowsiness, confusion, and hallucination. Etiology is unclear, but this seems to be multifactorial with acute infection as well as hyponatremia contributing. We will monitor the patient closely with increase in serum sodium. 3. Hyperkalemia, mild. We will repeat BMP, and we will treat if it is getting worse. We will avoid potassium supplementation. 4. Chronic kidney disease, stage 3: This is stable. No acute issues. 5. Hypertension: Control is acceptable. We will continue current antihypertensives and monitor blood pressures. 6. Diastolic heart failure: The patient seems euvolemic and compensated at this time. Cautious diuretic therapy as needed is recommended while hydrochlorothiazide should be discontinued henceforth. 7. Spinal methicillin-resistant Staphylococcus aureus infection. The patient is on long-term antibiotics as per ID. This should be continued. Many thanks for involving us in the care of this patient. We will follow along with you. We will monitor serum sodium with current regimen of fluid restriction. We will avoid normal saline or hypotonic saline in this patient as it will worsen hyponatremia. Job ID: [id number]
[2019-01-30] MEDS: Acetaminophen 325 MG TAB PO PRN (17:15)
--- NOTE | 2019-01-30 23:42 | CON ---
DATE OF CONSULTATION: 01/30/2019 REASON FOR CONSULTATION: Altered mental status and recent MRSA infections. HISTORY OF PRESENT ILLNESS: A 63-year-old with a history of hypertension, stage 3 renal insufficiency, esophageal stricture, alcoholism, and MRSA infection of the lower back. She was treated for a protracted period of time with resolution of inflammatory changes and then she had recrudescence of the MRSA bacteremia, which led to recent admission to [facility]. She was treated this time with daptomycin and ceftaroline because of the failure of the vancomycin previously and this time she was brought in to the hospital because of altered mental status with hallucinations. She was brought from [facility]. There had been no documentation of fever recently in the halfway. No respiratory symptoms. No diarrhea. Here, the temperature was 98.0, blood pressure 170/90, pulse 82, O2 saturation 100%, 2 L nasal cannula. The patient had clear breath sounds. Heart with a regular rate without murmurs. Abdomen soft, nondistended. She had a PICC line, which had been placed at [facility] and she is described as being oriented in the emergency room with appropriate speech. Initial laboratory results included white cell count 13.5, hemoglobin 9.5, platelets 264 with 77% neutrophils. Sodium 126, creatinine 1.4, AST 70, ALT 17. BNP was 224, albumin 3.4. Urinalysis with 21-50 wbc's. During the most recent admission to [facility], an MRI of the thoracic spine did not show conclusive findings of inflammatory changes, but the test was done without contrast, so that was still a suspicious site because of severity of pain and the bacteremia; endocarditis had not been ruled out, although she did not have a BENJAMIN. The plan was to continue daptomycin and ceftaroline for at least 6 weeks if not 8 weeks with the end date of therapy around February 25. Currently, Ms. Leslie is drowsy. She is arousable and is able to recognize me and she knows where she is and the date as well. She has moderate difficulty with speech because of secretions in the oral cavity and upper airway, which has difficulty in clearing. Denies any headaches, still with moderate back pain in the upper thoracic spine. Mild dyspnea. No chest pain. No abdominal pain. PAST MEDICAL HISTORY: Alcoholism, hypertension, esophageal stricture, intertriginous eruption in the groin area, malnutrition, recurrent falls, diskitis, osteomyelitis in the LS spine area with improvement/resolution after protracted IV vancomycin and then suppressive minocycline. PAST SURGICAL HISTORY: Cholecystectomy, EGD, and tonsillectomy. SOCIAL HISTORY: She had been living alone, but then she was transferred to [facility]. She used to work for [employer]. Had a history of alcoholism, never smoker. FAMILY HISTORY: CVA. MEDICATIONS: Current medications include; 1. Tylenol. 2. Albuterol. 3. DuoNeb. 4. Norvasc. 5. Caltrate. 6. Vitamin B12. 7. Folvite. 8. Robitussin. 9. Theragran. 10. Synthroid. 11. Imodium. 12. Meropenem. 13. Solu-Medrol. 14. Lopressor. 15. Vancomycin. PHYSICAL EXAMINATION: VITAL SIGNS: T-max 99.1, she is now 96.4; blood pressure 130/69, pulse 85, respirations 21, O2 saturation 99%, 2 L nasal cannula. SKIN: A shallow ulceration in the groin region, right side. She has a PICC line in the left upper extremity. Alopecia. HEENT: Ocular movements are conjugate. Sclerae white. Conjunctivae normal. Oral cavity dry. Still with two teeth in place. NECK: Supple, tenderness in the upper thoracic spine. LUNGS: Symmetric air entry. Faint basilar crackles. Maybe faint wheezing in the left base. HEART: S1 and S2. Diminished heart sounds with a soft aortic murmur. No S3. ABDOMEN: Soft, mildly distended. Bowel sounds are present. No bladder distention. EXTREMITIES: She is able to move extremities. She has bilateral upper extremity asterixis. NEUROLOGIC: She is awake, knows her name. She has difficulty with speech and has halting speech pattern. Recollection is somewhat limited. She knows where she is, knows the date. LABORATORY DATA: The white cell count is at 13.3, hemoglobin 7.9, platelets 211 , 89% neutrophils. Creatinine 1.4, ALT 17, AST 70, calcium 9.4, lactic acid 1.1. Urinalysis with 21 to 50 wbc's. Microbiology with E coli in the urine voided and another Gram-negative jess. The quantity was small amounts, this probably reflect colonization rather than true invasive infection. IMAGING STUDIES: We have an echocardiogram, which demonstrates EF of 60% to 65% , some diastolic dysfunction, but no other significant findings. Chest x-ray with stable appearance, pulmonary perfusion with a very low probability for PE. ASSESSMENT: 1. History of alcoholism, likely chronic liver disease. 2. Evidence of encephalopathy with asterixis. Possibility of hepatic encephalopathy is considered or it could be just multifactorial. 3. Recurrence of previous methicillin-resistant Staphylococcus aureus infection with bacteremia with concern for thoracic spine involvement. Possibility of endocarditis was not ruled out. DISCUSSION: Thus far, 2 sets of blood culture, no growth at 48 hours and encephalopathy is improving. We will check ammonium levels. She may need lactulose treatment. I do not think there is evidence to suggest primary DRIER process such as septic emboli, although sometimes those can be difficult to identify in the neurological exam. May consider an MRI of the brain in that regard. In terms of the overall treatment plan, we would still continue with the daptomycin, ceftaroline; ceftaroline is non-formulary in this hospital, so could remain on vancomycin for now and then eventual transition back to the halfway regimen that she had been receiving before admission to this hospital. Possibility of drug related adverse reaction is another consideration. Daptomycin is not typically associated with these adverse reactions, neither is ceftaroline though. Other sites of involvement including lungs, other long bones and joints, intraabdominal compartment are not apparent at this time. The urinary tract is more likely an inocent bystander. Job ID: [id number] MTDD
[2019-01-31] MEDS: Acetaminophen 325 MG TAB PO PRN ×2 (01:25→17:18)
[2019-01-31] MEDS: Vancomycin HCl 1.5 GM in Sodium Chloride 0.9% 250 ML 300 ML IVPB SCH (02:26)
[2019-01-31 02:30] LABS: #Lymphocytes 0.9 thou/uL (1.20-3.40); #Monocytes 0.6 thou/uL (0.11-0.59); #Neutrophils 6.8 thou/uL (1.40-6.50); %Basophils 0.2 % (0.0-1.0); %Eosinophils 0.1 % (0.0-10.0); %Lymphocytes 10.6 % (21.0-51.0); %Monocytes 6.9 % (0.0-10.0); %Neutrophils 82.2 % (42.0-75.0); Hemoglobin 7.1 g/dL (12.0-16.0); Mean Corpuscular HGB CONC 32.2 g/dL (32.0-36.0); Mean Corpuscular Hemoglobin 28.9 pg (27.0-31.0); Mean Corpuscular Volume 89.6 fL (78.0-98.0); Mean Platelet Volume 7.5 fL (7.4-10.4); Platelet Count 235 thou/uL (130-400); RBC Distribution Width 14.5 % (11.5-14.5); Red Blood Cell (RBC) Count 2.47 mill/uL (4.20-5.40); White Blood Cell (WBC) Count 8.3 thou/uL (4.8-10.8)
[2019-01-31 03:16] LABS: BUN (Urea Nitrogen) 25 mg/dL (9.8-20.1); Calc. Creatinine Clearance 76 mL/min (70-130); Calcium 9.1 mg/dL (7.8-10.44); Carbon Dioxide 27 mmol/L (23-31); Estimated GFR-MDRD 41; Glucose 122 mg/dL (80-115)
[2019-01-31 03:25] LABS: Anion Gap 15 mmol/L (10-20); Chloride 95 mmol/L (98-107); Potassium 4.5 mmol/L (3.5-5.1); Sodium 130 mmol/L (136-145)
[2019-01-31] MEDS: methylPREDNISolone Sod Succ 40 MG VIAL IVP SCH (05:27)
[2019-01-31] MEDS: Levothyroxine Sodium 25 MCG TAB PO SCH (05:27)
[2019-01-31] MEDS ORDERED: guaiFENesin 100 MG/5 ML UDCUP PO PRN (09:05)
[2019-01-31] MEDS ORDERED: Benzonatate 100 MG CAP PO PRN (09:05)
--- NOTE | 2019-01-31 09:08 | PDOC.PN ---
- Subjective Encounter Start Date: 01/31/19 (f/u encephalopathy) Encounter Start Time: 09:06 Subjective: No overnight events, pt able to recall many details of the infection -: she has experienced and hospitalizations. She has back pain with coughing. -: denies any problems with her breathing - Objective Resuscitation Status - Order Detail: 01/28/19 23:12 Resuscitation Status Routine Resuscitation Status: FULL: Full Resuscitation Vital Signs & Weight: Vital Signs (12 hours) Temp Pulse Resp Pulse Ox 01/31/19 08:00 99 01/31/19 07:11 99.0 F 01/31/19 07:06 82 22 H 01/31/19 04:00 98.4 F 01/31/19 00:00 98.4 F Weight Weight 242 lb 7 oz Most Recent Monitor Data Heart Rate from ECG 90 NIBP 121/80 NIBP BP-Mean 93 Respiration from ECG 25 SpO2 98 I&O: 01/30/19 01/31/19 02/01/19 06:59 06:59 06:59 Intake Total 2181 1332 Output Total 600 1525 Balance 1581 -193 Result Diagrams: 01/31/19 02:09 01/31/19 02:09 Additional Labs: Accuchecks 01/31/19 01/31/19 01/31/19 08:04 04:04 00:11 POC Glucose 179 H 129 H 154 H 01/30/19 01/30/19 01/30/19 20:08 16:11 11:50 POC Glucose 156 H 120 H 110 EKG Reviewed by me: Yes (tele - sinus rhythm, 90's) Phys Exam - Physical Examination Constitutional: NAD Respiratory: no wheezing, no rales, no rhonchi, clear to auscultation bilateral good air movement Cardiovascular: RRR, no significant murmur Gastrointestinal: soft, non-tender, no distention, positive bowel sounds Musculoskeletal: no edema Neurological: non-focal, moves all 4 limbs Deviation from normal: alert and oriented x 3 Deviation from normal: resolving petechiae on LE, and unchanged ecchymosis on arms Dx/Plan (1) Bacteremia Code(s): R78.81 - BACTEREMIA Status: Acute (2) Anemia Code(s): D64.9 - ANEMIA, UNSPECIFIED Status: Acute Qualifiers: Anemia type: unspecified type Qualified Code(s): D64.9 - Anemia, unspecified (3) Acute respiratory failure Code(s): J96.00 - ACUTE RESPIRATORY FAILURE, UNSP W HYPOXIA OR HYPERCAPNIA Status: Acute Qualifiers: Respiratory failure complication: hypoxia Qualified Code(s): J96.01 - Acute respiratory failure with hypoxia (4) Acute metabolic encephalopathy Code(s): G93.41 - METABOLIC ENCEPHALOPATHY Status: Acute (5) GERD (gastroesophageal reflux disease) Code(s): K21.9 - GASTRO-ESOPHAGEAL REFLUX DISEASE WITHOUT ESOPHAGITIS Status: Chronic (6) Hypertension Code(s): I10 - ESSENTIAL (PRIMARY) HYPERTENSION Status: Chronic (7) Chronic kidney disease (CKD) Code(s): N18.9 - CHRONIC KIDNEY DISEASE, UNSPECIFIED Status: Acute Qualifiers: Chronic kidney disease stage: stage 3 (moderate) Qualified Code(s): N18.3 - Chronic kidney disease, stage 3 (moderate) - Plan * * Reviewed records from [facility] - bacteremia secondary to MRSA * On Vanc with pharmacy dosing - on hold due to elevated trough * ID consult appreciated - meropenem d/c * Ucx shows MDR E coli -will ask about this and need for tx as 25-50k colony count. * follow blood cx - negative thus far * appreciate Nephro consult - IVF d/c, c/w SIADH and improved. Renal function stable * Appreciate Pulmonology consult * Encephalopathy - likely multifactorial and appears resolved * Hypoxia - stable with improved resp status * very low prob VQ scan * on oral steroids * continue nebs * cough meds prn * Anemia - worsening - no overt bleeding and is not on DVT pharm prophylaxis * recommend 1 unit prbc - pt to talk with her sister to make decision * check stool for blood * consider GI consult - is on protonix due to steroids * hypoglycemia - resolved - d/c finger stick glucose * constipation - add scheduled bowel med * * dvt prophy - scd's * gi prophy - PPI due to steroids * code status full * * Pt at high risk in current condition. * reviewed plan of care with patient, no questions or further needs at end of eval * pt can be transfered back to tele
[2019-01-31] MEDS: PARoxetine 20 MG TAB PO SCH (10:20)
[2019-01-31] MEDS: Cyanocobalamin (Vitamin B-12) 1,000 MCG TAB PO SCH (10:22)
[2019-01-31] MEDS: Calcium Carbonate 600 MG TAB PO SCH ×2 (10:23→20:37)
[2019-01-31] MEDS: Saccharomyces boulardii 250 MG CAP PO SCH (10:23)
[2019-01-31] MEDS: Multivitamin W/ Minerals 1 TAB PO SCH (10:23)
[2019-01-31] MEDS: Amlodipine 10 MG TAB PO SCH (10:23)
[2019-01-31] MEDS: Thiamine 100 MG TAB PO SCH (10:23)
[2019-01-31] MEDS: hydrALAZINE 25 MG TAB PO SCH ×5 (10:24→20:50)
[2019-01-31] MEDS: Folic Acid 1 MG TAB PO SCH (10:24)
[2019-01-31] MEDS: Metoprolol Tartrate 25 MG TAB PO SCH ×2 (10:24→20:39)
[2019-01-31] MEDS: Polyethylene Glycol 3350 17 GM Packet PO SCH (10:24)
--- NOTE | 2019-01-31 10:27 | EKG ---
Test Reason : Blood Pressure : / mmHG Vent. Rate : 081 BPM Atrial Rate : 081 BPM P-R Int : 158 ms QRS Dur : 078 ms QT Int : 364 ms P-R-T Axes : 040 020 035 degrees QTc Int : 422 ms Normal sinus rhythm Normal ECG Confirmed by WES NESS ([id number]), editorial manager HIEN PADRON ([id number]) on 01/31/2019 10:27:42 AM Referred By: Confirmed By:WES NESS
--- NOTE | 2019-01-31 10:35 | PRG ---
DATE OF SERVICE: 01/31/2019 SUBJECTIVE: The patient appears to be in good spirits today. She had no acute complaints. OBJECTIVE: VITAL SIGNS: Her temperature is 99.0, pulse 90, blood pressure 121/80, and O2 saturation 98%. HEENT: Unremarkable except for alopecia. NECK: No adenopathy or JVD. LUNGS: Clear anteriorly. CARDIAC: S1 and S2, regular. ABDOMEN: Somewhat distended. EXTREMITIES: No edema. LABORATORY DATA: Sodium 130, potassium 4.5, BUN 25, creatinine 1.3, and glucose 122. White blood cell count 8.3, hemoglobin 7.1, hematocrit 22.1, and platelet count 235. ASSESSMENT: 1. Metabolic encephalopathy, which is improved. 2. Hyponatremia, improved. 3. Sepsis. PLAN: 1. Continue vancomycin. 2. The patient is anemic and approaching the point where she may need a blood transfusion soon. 3. Continue current care otherwise. Job ID: [id number]
--- NOTE | 2019-01-31 12:37 | PRG ---
DATE OF SERVICE: 01/31/2019 SUBJECTIVE: A 63-year-old female with MRSA spine infection, admitted due to worsening confusion, weakness, and hallucination. Nephrology is following the patient for hyponatremia. The patient also has history of CKD stage 3 and was also found to have urinary tract infection. The patient feels a lot better today. She is very much awake and conversational. Complains of pleuritic chest pain, but denied fever. OBJECTIVE: VITAL SIGNS: Temperature 98.8, pulse 85, respiratory rate 18, SpO2 of 98%, and blood pressure 137/88. GENERAL: Obese female, in no obvious distress. Afebrile. Anicteric. Acyanotic. HEENT: Normocephalic, atraumatic. Pupils are reacting to light. Alopecia capitis noted. Oral mucosa is moist. RESPIRATORY: Fair air entry bilateral with some transmitted sounds, especially at the lower lung saunders. Respiratory excursion is limited due to pleuritic chest pain. CARDIOVASCULAR: Regular rhythm and rate with normal heart sounds 1 and 2. GI: Abdomen is morbidly obese, soft, nontender, nondistended with normal bowel sounds. EXTREMITIES: Ecchymosis at different stages of resolution noticed on both upper limbs. Few petechial rashes also are noticed on the anterior aspect of both ankle and distal leg. No obvious edema is noticed on both legs. NEUROLOGIC: Conscious, alert, and oriented x3 with appropriate mental status. Cranial nerves 2 through 12 are intact. The patient is conversational and obeys commands. Moves all extremities. DIAGNOSTIC DATA: CBC showed WBC count of 8.3, hemoglobin of 7.1 which is down from 9.5 on admission, and platelets 235. BMP showed sodium 130, potassium 4.5, chloride 95, CO2 of 27, BUN 25, creatinine 1.31, glucose 122, and calcium 9.1. ASSESSMENT AND PLAN: 1. Hyponatremia: This is felt to be due to syndrome of inappropriate antidiuretic hormone secretion and hypotonic solution use. Serum sodium is trending up with fluid restriction. We will continue fluid restriction and monitor serum sodium. 2. Acute encephalopathy: Thought to be multifactorial from hyponatremia and urinary tract infection. Improved. The patient is back to baseline. 3. Chronic kidney disease stage 3: Seems stable. We will monitor and avoid nephrotoxic agents. 4. Methicillin-resistant Staphylococcus aureus infection: The patient is on several antibiotics as per Infectious Disease. Need to get these renally dosed is important. We will get random vancomycin level to avoid toxicity. 5. Morbid obesity. No acute issues. 6. Hypertension: Blood pressure control is acceptable at this time. We will continue current antihypertensives, hydralazine and metoprolol. Job ID: [id number]
[2019-01-31 12:53] LABS: Iron 78 ug/dL (50-170); Iron Binding Capacity, Total 234 mcg/dL (265-497)
--- NOTE | 2019-01-31 14:39 | PDOC.EVN ---
Event Note - Event Note Event Note: checked back with patient -she desires blood transfusion - start with 1 unit prbc. Reviewed risks/benefits and she verbally consents. Will obtain written consent as well. - back pain and abd pain with coughing - is responding to tylenol - constipation - schedule doc/senna rather than prn, and continue scheduled miralax - difficulty sleeping - will schedule melatonin in the evening and monitor no questions or further needs at end of re-evaluation
[2019-01-31] MEDS ORDERED: Meropenem 1 GM in Sodium Chloride 0.9% 100 ML IVPB SCH (18:00)
[2019-01-31] MEDS ORDERED: Melatonin 3 MG TAB PO SCH (19:00)
[2019-01-31] MEDS: MEROPENEM 1 GM/50 ML 1 GM in Premix Bag 1 BAG IVPB SCH (20:36)
[2019-01-31] MEDS: Senokot S 8.6-50 MG TAB PO SCH (20:38)
[2019-01-31] MEDS: Diabetic Tussin 200 MG/10 ML UDCUP PO PRN (22:20)
[2019-02-01 02:23] LABS: #Lymphocytes 2.1 thou/uL (1.20-3.40); #Monocytes 1.5 thou/uL (0.11-0.59); #Neutrophils 9.3 thou/uL (1.40-6.50); %Eosinophils 0.2 % (0.0-10.0); %Lymphocytes 16.4 % (21.0-51.0); %Monocytes 11.9 % (0.0-10.0); %Neutrophils 71.5 % (42.0-75.0); Hemoglobin 8.4 g/dL (12.0-16.0); Mean Corpuscular HGB CONC 32.6 g/dL (32.0-36.0); Mean Corpuscular Hemoglobin 29.3 pg (27.0-31.0); Mean Corpuscular Volume 89.8 fL (78.0-98.0); Mean Platelet Volume 6.8 fL (7.4-10.4); Platelet Count 229 thou/uL (130-400); RBC Distribution Width 14.4 % (11.5-14.5); Red Blood Cell (RBC) Count 2.86 mill/uL (4.20-5.40)
[2019-02-01 02:45] LABS: Vancomycin, Trough 30.4 ug/mL
[2019-02-01 02:49] LABS: Anion Gap 15 mmol/L (10-20); BUN (Urea Nitrogen) 33 mg/dL (9.8-20.1); Calc. Creatinine Clearance 75 mL/min (70-130); Calcium 9.2 mg/dL (7.8-10.44); Carbon Dioxide 26 mmol/L (23-31); Chloride 94 mmol/L (98-107); Estimated GFR-MDRD 40; Glucose 113 mg/dL (80-115); Potassium 4.5 mmol/L (3.5-5.1); Sodium 130 mmol/L (136-145)
[2019-02-01] MEDS ORDERED: Vancomycin HCl 1.25 GM in Sodium Chloride 0.9% 250 ML 250 ML IVPB PRN (03:00)
[2019-02-01] MEDS: Acetaminophen 325 MG TAB PO PRN ×2 (04:12→15:28)
[2019-02-01] MEDS: Levothyroxine Sodium 25 MCG TAB PO SCH (05:35)
[2019-02-01] MEDS: MEROPENEM 1 GM/50 ML 1 GM in Premix Bag 1 BAG IVPB SCH ×2 (05:35→17:35)
[2019-02-01] MEDS: Folic Acid 1 MG TAB PO SCH (10:00)
[2019-02-01] MEDS: PARoxetine 20 MG TAB PO SCH (10:00)
[2019-02-01] MEDS: Thiamine 100 MG TAB PO SCH (10:01)
[2019-02-01] MEDS: predniSONE 20 MG TAB PO SCH (10:01)
[2019-02-01] MEDS: Multivitamin W/ Minerals 1 TAB PO SCH (10:01)
[2019-02-01] MEDS: Saccharomyces boulardii 250 MG CAP PO SCH (10:01)
[2019-02-01] MEDS: Calcium Carbonate 600 MG TAB PO SCH ×2 (10:01→19:43)
[2019-02-01] MEDS: Cyanocobalamin (Vitamin B-12) 1,000 MCG TAB PO SCH (10:01)
[2019-02-01] MEDS: hydrALAZINE 25 MG TAB PO SCH ×3 (10:02→19:43)
[2019-02-01] MEDS: Senokot S 8.6-50 MG TAB PO SCH ×2 (10:02→19:44)
[2019-02-01] MEDS: Metoprolol Tartrate 25 MG TAB PO SCH ×2 (10:03→19:43)
[2019-02-01] MEDS: Amlodipine 10 MG TAB PO SCH (10:03)
[2019-02-01] MEDS: Polyethylene Glycol 3350 17 GM Packet PO SCH (10:04)
[2019-02-01] MEDS ORDERED: Temazepam 15 MG CAP PO PRN (11:18)
--- NOTE | 2019-02-01 11:21 | PDOC.PN ---
- Subjective Encounter Start Date: 02/01/19 (f/u encephalopathy) Encounter Start Time: 11:20 Subjective: Pt without complaints today - denies n/v/abd pain/chest pain/sob -: denies any new concerns - Objective Resuscitation Status - Order Detail: 01/28/19 23:12 Resuscitation Status Routine Resuscitation Status: FULL: Full Resuscitation Vital Signs & Weight: Vital Signs (12 hours) Temp Pulse Resp BP BP Pulse Ox 02/01/19 10:03 78 151/71 H 02/01/19 10:02 78 151/71 H 02/01/19 08:00 82 22 H 02/01/19 07:55 98.1 F 78 18 151/71 H 94 L 02/01/19 04:00 98.3 F 76 17 148/75 H 98 02/01/19 03:39 98 Weight Weight 242 lb 7 oz Most Recent Monitor Data Heart Rate from ECG 87 NIBP 137/88 NIBP BP-Mean 104 Respiration from ECG 26 SpO2 98 I&O: 01/31/19 02/01/19 02/02/19 06:59 06:59 06:59 Intake Total 1332 480 Output Total 1525 1075 Balance -193 -595 Result Diagrams: 02/01/19 02:15 02/01/19 02:15 Additional Labs: Accuchecks 02/01/19 01/31/19 05:38 20:38 POC Glucose 110 221 H EKG Reviewed by me: Yes (tele - sinus 70-80's) Phys Exam - Physical Examination Constitutional: NAD Respiratory: no wheezing, no rales, no rhonchi, clear to auscultation bilateral Cardiovascular: RRR, no significant murmur Gastrointestinal: soft, non-tender, no distention, positive bowel sounds Musculoskeletal: no edema Neurological: non-focal, moves all 4 limbs Psychiatric: normal affect, A&O x 3 Dx/Plan (1) Bacteremia Code(s): R78.81 - BACTEREMIA Status: Acute (2) Anemia Code(s): D64.9 - ANEMIA, UNSPECIFIED Status: Acute Qualifiers: Anemia type: unspecified type Qualified Code(s): D64.9 - Anemia, unspecified (3) Acute respiratory failure Code(s): J96.00 - ACUTE RESPIRATORY FAILURE, UNSP W HYPOXIA OR HYPERCAPNIA Status: Acute Qualifiers: Respiratory failure complication: hypoxia Qualified Code(s): J96.01 - Acute respiratory failure with hypoxia (4) Acute metabolic encephalopathy Code(s): G93.41 - METABOLIC ENCEPHALOPATHY Status: Acute (5) GERD (gastroesophageal reflux disease) Code(s): K21.9 - GASTRO-ESOPHAGEAL REFLUX DISEASE WITHOUT ESOPHAGITIS Status: Chronic (6) Hypertension Code(s): I10 - ESSENTIAL (PRIMARY) HYPERTENSION Status: Chronic (7) Chronic kidney disease (CKD) Code(s): N18.9 - CHRONIC KIDNEY DISEASE, UNSPECIFIED Status: Acute Qualifiers: Chronic kidney disease stage: stage 3 (moderate) Qualified Code(s): N18.3 - Chronic kidney disease, stage 3 (moderate) - Plan * * Reviewed records from [facility] - bacteremia secondary to MRSA * On Vanc with pharmacy dosing * ID consult appreciated * Ucx shows MDR E coli -meropenem resumed yesterday - will need determination on how long to treat for. She did have meropenem on admission which was stopped for about a day until resumed yesterday. * follow blood cx - negative thus far * appreciate Nephro consult - c/w SIADH and improved. Renal function stable * Appreciate Pulmonology consult * Encephalopathy - likely multifactorial including UTI and appears resolved * Hypoxia - stable with improved resp status * very low prob VQ scan * on oral steroids - start to wean * continue nebs * cough meds prn * Anemia - s/p 1 unit prbc yesterda - stable * No signs of overt bleeding * monitor for change - would like to see stable for 2 days. if a drop, recommend GI consultation * hypoglycemia - resolved * constipation - scheduled bowel meds - resolved * d/c goins cath * start sleep med - no improvement in sleep with melatonin * * dvt prophy - scd's * gi prophy - PPI due to steroids * code status full * * Pt at high risk in current condition. * reviewed plan of care with patient, no questions or further needs at end of eval * anticipate discharge back to her facility in 2-3 days
--- NOTE | 2019-02-01 13:30 | PRG ---
DATE OF SERVICE: 02/01/2019 SUBJECTIVE: The patient is about the same. She had no acute complaints. OBJECTIVE: VITAL SIGNS: Temperature 98.1, pulse 78, blood pressure 151/71, O2 saturation 94% on 2 L. HEENT: Unremarkable except for alopecia. NECK: No JVD. CHEST: Clear. CARDIAC: S1, S2. Regular. ABDOMEN: Soft. EXTREMITIES: No edema. ASSESSMENT: 1. Metabolic encephalopathy, improved. 2. Improved hyponatremia. PLAN: Continue supportive care. She is continuing treatment for highly resistant urinary tract infection. Job ID: [id number]
--- NOTE | 2019-02-01 14:29 | PRG ---
DATE OF SERVICE: 02/01/2019 SUBJECTIVE: Ms. Leslie is oriented x3, very alert, follows commands. Denies any headaches. No dyspnea. No abdominal pain. No diarrhea. OBJECTIVE: VITAL SIGNS: Temperature max 99.3, currently 98.1; blood pressure 150/70, and O2 saturation 94 on nasal cannula O2. GENERAL: No distress, pleasant. HEENT: Ocular movements conjugate. Somewhat pale conjunctivae. LUNGS: Clear. HEART: S1 and S2. Regular rate. ABDOMEN: Soft. Not distended or tender. No ascites. No bladder distention. GENITOURINARY: Indwelling Jackson catheter noted. LABORATORY DATA: White cell count is up to 13,000, hemoglobin is 8.4, platelets 229, 71% neutrophils. Creatinine is at 1.33, which is about the same as previously. The urine culture with E coli and another gram-negative jess. E coli has ESBL phenotype. Currently on meropenem, which has been restarted because of concerns with her mental state. ASSESSMENT AND DISCUSSION: History of alcoholism, possible chronic liver disease, and encephalopathy with asterixis. No evidence of recurrence of methicillin-resistant Staphylococcus aureus bacteremia, abnormal urinalysis with positive cultures with concern for invasive urinary tract infection. At this point, we will treat her as if she did have an invasive urinary tract infection with meropenem and treat for few days and then discontinue. Eventual removal of the Jackson catheter with a voiding trial. She will have to continue her treatment that had been prescribed at home with daptomycin and ceftaroline upon discharge. Job ID: [id number]
--- NOTE | 2019-02-01 16:29 | PRG ---
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 The patient is feeling better and was transferred out of the [facility] yesterday. Reportedly was very sleepy earlier in the day, but is very much awake right now. Pleuritic chest pain has subsided. Denied any new complaints. OBJECTIVE: VITAL SIGNS: Temperature 98.1, pulse 78, respiratory rate 16, SpO2 of 94 on 2 L nasal cannula, blood pressure is 157/76. GENERAL: Obese female, in no obvious distress. Afebrile. Anicteric. Acyanotic. HEENT: Normocephalic, atraumatic. Oral mucosa is moist. Alopecia noted. RESPIRATORY: Fair air entry bilaterally with no obvious crackle or rhonchi or use of accessory muscles. Work of breathing is mildly increased. CARDIOVASCULAR: Regular rhythm and rate with normal heart sounds 1 and 2. GI: Abdomen is obese, soft, nontender, nondistended with normal bowel sounds. EXTREMITIES: Grossly normal looking atraumatic with no obvious edema or erythema. NEUROLOGIC: The patient is conscious and alert oriented x3 with appropriate mental status. Cranial nerves 2 through 12 are intact. The patient moves all extremities but weakly. DIAGNOSTIC DATA: CBC showed WBC count of 13, hemoglobin of 8.4, MCV of 89.9, platelet of 229. BMP showed sodium 130, potassium 4.5, chloride 94, CO2 of 26, BUN 33, creatinine 1.33, glucose 113, calcium 9.2. ASSESSMENT AND PLAN: 1. Hyponatremia: Sodium level seems to plateau at 130. This was felt to be due to syndrome of inappropriate ADH secretion. We will continue water restriction of 800 per 24 hours and continue to monitor serum sodium levels. Hydrochlorothiazide has been discontinued. However, the patient is still on paroxetine. 2. Chronic kidney disease, stage 3: Stable. We will avoid all nephrotoxic agents. 3. Acute encephalopathy: Thought to be related to hyponatremia and urinary tract infection. Resolved. The patient is back to baseline. 4. Hypertension: BP control is acceptable. Peak episodes of acute elevation are noted. We will monitor closely with a view to optimize antihypertensives if BP consistently elevated. We will continue amlodipine, hydralazine, and metoprolol at current dosages. 5. MRSA spinal infection and urinary tract infection. Treatment as per primary attending and Infectious Diseases. Job ID: [id number]
[2019-02-02 02:09] LABS: #Eosinphils 0.1 thou/uL (0.0-0.7); #Lymphocytes 2.2 thou/uL (1.20-3.40); #Monocytes 1.3 thou/uL (0.11-0.59); #Neutrophils 9.9 thou/uL (1.40-6.50); %Basophils 0.1 % (0.0-1.0); %Eosinophils 0.4 % (0.0-10.0); %Lymphocytes 16.3 % (21.0-51.0); %Monocytes 9.3 % (0.0-10.0); %Neutrophils 73.8 % (42.0-75.0); Hemoglobin 8.9 g/dL (12.0-16.0); Mean Corpuscular HGB CONC 32.7 g/dL (32.0-36.0); Mean Corpuscular Hemoglobin 29.5 pg (27.0-31.0); Mean Corpuscular Volume 90.4 fL (78.0-98.0); Mean Platelet Volume 7.3 fL (7.4-10.4); Platelet Count 276 thou/uL (130-400); RBC Distribution Width 14.5 % (11.5-14.5); White Blood Cell (WBC) Count 13.5 thou/uL (4.8-10.8)
[2019-02-02 02:28] LABS: Vancomycin, Random 19.1 ug/mL (See Comment)
[2019-02-02 02:37] LABS: Anion Gap 11 mmol/L (10-20); BUN (Urea Nitrogen) 32 mg/dL (9.8-20.1); Calc. Creatinine Clearance 84 mL/min (70-130); Calcium 9.4 mg/dL (7.8-10.44); Carbon Dioxide 28 mmol/L (23-31); Chloride 97 mmol/L (98-107); Estimated GFR-MDRD 46; Glucose 110 mg/dL (80-115); Potassium 4.9 mmol/L (3.5-5.1); Sodium 131 mmol/L (136-145)
[2019-02-02] MEDS: Vancomycin HCl 1.25 GM in Sodium Chloride 0.9% 250 ML 250 ML IVPB SCH (04:00)
[2019-02-02] MEDS ORDERED: hydrALAZINE 20 MG/ML VIAL SLOW IVP PRN (04:19)
[2019-02-02] MEDS: Diabetic Tussin 200 MG/10 ML UDCUP PO PRN (04:20)
[2019-02-02] MEDS: Acetaminophen 325 MG TAB PO PRN ×2 (04:20→08:32)
[2019-02-02] MEDS: Levothyroxine Sodium 25 MCG TAB PO SCH (05:37)
[2019-02-02] MEDS: MEROPENEM 1 GM/50 ML 1 GM in Premix Bag 1 BAG IVPB SCH ×2 (05:37→17:23)
[2019-02-02] MEDS: Multivitamin W/ Minerals 1 TAB PO SCH (08:26)
[2019-02-02] MEDS: Cyanocobalamin (Vitamin B-12) 1,000 MCG TAB PO SCH (08:26)
[2019-02-02] MEDS: Saccharomyces boulardii 250 MG CAP PO SCH (08:26)
[2019-02-02] MEDS: PARoxetine 20 MG TAB PO SCH (08:26)
[2019-02-02] MEDS: Calcium Carbonate 600 MG TAB PO SCH ×2 (08:26→20:06)
[2019-02-02] MEDS: Folic Acid 1 MG TAB PO SCH (08:27)
[2019-02-02] MEDS: predniSONE 20 MG TAB PO SCH (08:27)
[2019-02-02] MEDS: Metoprolol Tartrate 25 MG TAB PO SCH ×2 (08:27→20:06)
[2019-02-02] MEDS: Amlodipine 10 MG TAB PO SCH (08:27)
[2019-02-02] MEDS: hydrALAZINE 25 MG TAB PO SCH ×3 (08:28→20:05)
[2019-02-02] MEDS: Polyethylene Glycol 3350 17 GM Packet PO SCH (08:28)
[2019-02-02] MEDS: Senokot S 8.6-50 MG TAB PO SCH ×2 (08:28→20:07)
[2019-02-02] MEDS: Thiamine 100 MG TAB PO SCH (08:28)
--- NOTE | 2019-02-02 08:51 | PRG ---
DATE OF SERVICE: 02/02/2019 SUBJECTIVE: This morning, she is awake, alert, and responsive. No longer encephalopathic. OBJECTIVE: VITAL SIGNS: Saturations are 96% on a liter, respirations 20, blood pressure is 190/80, pulse 87. She is afebrile. CHEST: Decreased breath sounds. No wheezing. CARDIAC: Normal S1, S2. _. LABORATORY DATA: Sodium is up to 131. White count 13,000. Lytes are normal. IMPRESSION: 1. Urinary tract infection, multidrug resistance. 2. Morbid obesity. 3. Encephalopathy, probably sleep apnea. 4. Disk space disease, on gram-positive coverage. PLAN: Pulmonary elena, avoid hydrochlorothiazide. Continue supportive care, PT. Taper steroids. We will follow. Job ID: [id number] MTDD
[2019-02-02] MEDS ORDERED: predniSONE 20 MG TAB PO SCH (09:00)
[2019-02-02] MEDS: HYDROcodone/Acetaminophen 5/325 mg Tablet PO PRN ×3 (10:50→23:01)
--- NOTE | 2019-02-02 14:31 | PDOC.PN ---
- Subjective Encounter Start Date: 02/02/19 Encounter Start Time: 14:29 Subjective: c/o severe back pain.only o tylenol & not relieved by it -: no N/V/abd pain - Objective Resuscitation Status - Order Detail: 01/28/19 23:12 Resuscitation Status Routine Resuscitation Status: FULL: Full Resuscitation MAR Reviewed: Yes Vital Signs & Weight: Vital Signs (12 hours) Temp Pulse Resp BP BP Pulse Ox 02/02/19 12:47 73 16 02/02/19 12:00 97.5 F L 76 18 147/75 H 96 02/02/19 08:28 76 02/02/19 08:27 76 02/02/19 08:00 96.9 F L 93 17 194/90 H 95 02/02/19 07:35 76 20 96 02/02/19 04:23 85 191/89 H 02/02/19 04:00 98.5 F 20 Weight Weight 242 lb 7 oz Most Recent Monitor Data Heart Rate from ECG 87 NIBP 137/88 NIBP BP-Mean 104 Respiration from ECG 26 SpO2 98 I&O: 02/01/19 02/02/19 02/03/19 06:59 06:59 06:59 Intake Total 480 1210 Output Total 1075 2250 Balance -595 -1040 Result Diagrams: 02/02/19 02:00 02/02/19 02:00 Additional Labs: Accuchecks 02/02/19 02/02/19 02/01/19 04:47 00:11 20:49 POC Glucose 108 122 H 168 H 02/01/19 02/01/19 17:03 11:02 POC Glucose 156 H 139 H Microbiology 02/01/19 01:10 Stool Stool Occult Blood (KARON) - Final 01/28/19 19:30 Urine voided Urine Culture - Final Escherichia coli Gram Negative Eddie 01/28/19 18:45 Venous blood - Right Arm Blood Culture - Preliminary NO GROWTH AT 48 HOURS 01/28/19 18:45 Venous blood - Left Arm Blood Culture - Preliminary NO GROWTH AT 48 HOURS Laboratory Tests 01/28/19 01/28/19 01/29/19 18:45 18:45 04:11 WBC 13.5 H 17.2 H Hgb 9.5 L 8.2 L Sodium Creatinine 1.40 H 01/29/19 01/30/19 01/30/19 15:36 01:49 01:49 WBC 13.3 H Hgb Sodium Creatinine 1.42 H 1.28 H 01/30/19 01/30/19 01/31/19 13:45 13:45 02:09 WBC Hgb 7.7 L Sodium 129 L 130 L Creatinine 01/31/19 02/01/19 02/01/19 02:09 02:15 02:15 WBC 8.3 13.0 H Hgb 8.4 L Sodium 130 L Creatinine 1.33 H 02/02/19 02/02/19 02:00 02:00 WBC 13.5 H Hgb 8.9 L Sodium 131 L Creatinine 1.19 H Phys Exam - Physical Examination Constitutional: NAD (uncomfortable.pale and chronically ill looking) HEENT: PERRLA, moist MMs, sclera anicteric, oral pharynx no lesions Neck: no nodes, no JVD, supple, full ROM Respiratory: no wheezing, no rales, no rhonchi, clear to auscultation bilateral Cardiovascular: RRR, no significant murmur Gastrointestinal: soft, non-tender, no distention, positive bowel sounds Musculoskeletal: no edema, pulses present Neurological: non-focal, normal sensation, moves all 4 limbs Psychiatric: normal affect, A&O x 3 Skin: no rash Dx/Plan (1) Sepsis Code(s): A41.9 - SEPSIS, UNSPECIFIED ORGANISM Status: Acute Comment: MDR UTI w recent MRSA spine.cont Vancomycin and meropenam.ID also following.await final recs. Clinically stable (2) UTI (urinary tract infection) Status: Acute Comment: as #1.cont meropenam (3) Hyponatremia Code(s): E87.1 - HYPO-OSMOLALITY AND HYPONATREMIA Status: Acute Comment: improving.SIADH.cont free H2O restriction.Nephrology recs noted.monitor (4) Chronic kidney disease (CKD) Code(s): N18.9 - CHRONIC KIDNEY DISEASE, UNSPECIFIED Status: Acute Qualifiers: Chronic kidney disease stage: stage 3 (moderate) Qualified Code(s): N18.3 - Chronic kidney disease, stage 3 (moderate) Comment: stable (5) Acute metabolic encephalopathy Code(s): G93.41 - METABOLIC ENCEPHALOPATHY Status: Resolved (6) Chronic osteomyelitis of lumbar spine Code(s): M86.68 - OTHER CHRONIC OSTEOMYELITIS, OTHER SITE Status: Chronic Comment: appreciate ID service input.cont Vancomycin (7) GERD (gastroesophageal reflux disease) Code(s): K21.9 - GASTRO-ESOPHAGEAL REFLUX DISEASE WITHOUT ESOPHAGITIS Status: Chronic (8) Hypertension Code(s): I10 - ESSENTIAL (PRIMARY) HYPERTENSION Status: Chronic Comment: controlled. cont Amlodipine,BB and hydralazine.PRN antihypertensives - Plan continue antibiotics, PT/OT, respiratory therapy, incentive spirometry, out of bed/ambulate, DVT proph w/SCDs add low dose [place] & monitor neurological status.avoid higher dose -: cont ABx.clinically better -: H/H stable.monitor. cont FA+Thiamine. -: am labs.sodium better * . Review of Systems - Review of Systems Constitutional: weakness, malaise. negative: fever, chills, sweats, other ENT: negative: Ear Pain, Ear Discharge, Nose Pain, Nose Discharge, Nose Congestion, Mouth Pain, Mouth Swelling, Throat Pain, Throat Swelling, Other Respiratory: negative: Cough, Dry, Shortness of Breath, Hemoptysis, SOB with Excertion, Pleuritic Pain, Sputum, Wheezing Cardiovascular: negative: chest pain, palpitations, orthopnea, paroxysmal nocturnal dyspnea, edema, light headedness, other Gastrointestinal: negative: Nausea, Vomiting, Abdominal Pain, Diarrhea, Constipation, Melena, Hematochezia, Other Genitourinary: negative: Dysuria, Frequency, Incontinence, Hematuria, Retention , Other Musculoskeletal: Back Pain. negative: Neck Pain, Shoulder Pain, Arm Pain, Hand Pain, Leg Pain, Foot Pain, Other Neurological: negative: Weakness, Numbness, Incoordination, Change in Speech, Confusion, Seizures, Other - Medications/Allergies Allergies/Adverse Reactions: Allergies Allergy/AdvReac Type Severity Reaction Status Date / Time levofloxacin [From Levaquin] Allergy Verified 01/29/19 03:16 morphine Allergy Verified 01/29/19 03:16 Penicillins Allergy Verified 01/29/19 03:16 Medications: Current Medications Acetaminophen (Tylenol) 650 mg PO Q4H PRN PRN Reason: Headache/Fever/Mild Pain (1-3) Last Admin: 02/02/19 08:32 Dose: 650 mg Hydrocodone Bitart/Acetaminophen ([place] 5/325) 1 tab PO Q6H PRN PRN Reason: Moderate Pain (4-6) Last Admin: 02/02/19 10:50 Dose: 1 tab Albuterol Sulfate (Albuterol Sulfate) 1.25 mg NEB [id number] PRN PRN Reason: Wheezing Albuterol/Ipratropium (Duoneb) 3 ml NEB [id number] [facility] Last Admin: 02/02/19 12:47 Dose: 3 ml Amlodipine Besylate (Norvasc) 10 mg PO DAILY [facility] Last Admin: 02/02/19 08:27 Dose: 10 mg Benzonatate (Tessalon) 100 mg PO TIDPRN PRN PRN Reason: Cough Calcium Carbonate (Caltrate) 1,200 mg PO BID [facility] Last Admin: 02/02/19 08:26 Dose: 1,200 mg Cyanocobalamin (Vitamin B-12) 1,000 mcg PO DAILY [facility] Last Admin: 02/02/19 08:26 Dose: 1,000 mcg Dextrose/Water (Dextrose 50%) 25 gm SLOW IVP PRN PRN PRN Reason: Hypoglycemia Last Admin: 01/29/19 10:42 Dose: 25 gm Folic Acid (Folvite) 1 mg PO DAILY [facility] Last Admin: 02/02/19 08:27 Dose: 1 mg Guaifenesin (Robitussin Sf) 100 mg PO Q4H PRN PRN Reason: Cough Last Admin: 02/02/19 04:20 Dose: 100 mg Hydralazine HCl (Apresoline) 25 mg PO TID [facility] Last Admin: 02/02/19 08:28 Dose: 25 mg Hydralazine HCl (Apresoline) 10 mg SLOW IVP Q4H PRN PRN Reason: SBP Greater Than 170 Last Admin: 02/02/19 04:23 Dose: 10 mg Meropenem 1 gm/ Device 50 mls @ 50 mls/hr IVPB Q12H [facility] Last Admin: 02/02/19 05:37 Dose: 50 mls Vancomycin HCl 1.25 gm/ Sodium (Chloride) 250 mls @ 166.667 mls/hr IVPB Q24HR [facility] Last Admin: 02/02/19 04:00 Dose: 250 mls Iron/Minerals/Multivitamins (Theragran M) 1 tab PO DAILY [facility] Last Admin: 02/02/19 08:26 Dose: 1 tab Levothyroxine Sodium (Synthroid) 25 mcg PO 0600 [facility] Last Admin: 02/02/19 05:37 Dose: 25 mcg Metoprolol Tartrate (Lopressor) 25 mg PO BID [facility] Last Admin: 02/02/19 08:27 Dose: 25 mg Miscellaneous Medication (Pharmacy To Dose) 1 each IVPB PRN PRN PRN Reason: Pharmacy to dose Miscellaneous Medication (Pharmacy To Dose) 1 each IVPB ASDIR [facility] Ondansetron HCl (Zofran Odt) 4 mg PO Q6H PRN PRN Reason: Nausea/Vomiting Ondansetron HCl (Zofran) 4 mg IVP Q6H PRN PRN Reason: Nausea/Vomiting Pantoprazole Sodium (Protonix) 40 mg PO DAILY [facility] Last Admin: 02/02/19 08:28 Dose: 40 mg Paroxetine HCl (Paxil) 10 mg PO DAILY [facility] Last Admin: 02/02/19 08:26 Dose: 10 mg Polyethylene Glycol (Miralax) 17 gm PO DAILY [facility] Last Admin: 02/02/19 08:28 Dose: Not Given Prednisone (Prednisone) 20 mg PO QA[facility] Saccharomyces Boulardii (Florastor) 250 mg PO DAILY [facility] Last Admin: 02/02/19 08:26 Dose: 250 mg Senna/Docusate Sodium (Senokot S) 2 tab PO BID [facility] Last Admin: 02/02/19 08:28 Dose: Not Given Sodium Chloride (Flush - Normal Saline) 10 ml IVF Q12HR [facility] Last Admin: 02/02/19 08:28 Dose: 10 ml Sodium Chloride (Flush - Normal Saline) 10 ml IVF PRN PRN PRN Reason: Saline Flush Last Admin: 02/01/19 17:36 Dose: 10 ml Sodium Chloride (Flush - Normal Saline) 10 ml IVF PRN PRN PRN Reason: Saline Flush Temazepam (Restoril) 15 mg PO HSPRN PRN PRN Reason: Insomnia Thiamine HCl (Thiamine) 100 mg PO DAILY [facility] Last Admin: 02/02/19 08:28 Dose: 100 mg
--- NOTE | 2019-02-02 18:15 | PRG ---
DATE OF SERVICE: SUBJECTIVE: Awake and alert. She has been doing physical therapy, ate pretty much all her hamburger for lunch. She still has moderate to quite intense pain in the upper and mid thoracic spine. The abdomen is not tender. She had a Jackson catheter removed and she is voiding without difficulty. OBJECTIVE: VITAL SIGNS: T-max 98.5, BP 150/70, pulse 77, respirations 16, and O2 saturation 97. SKIN: Not remarkable. LUNGS: Symmetric. Clear breath sounds. HEART: S1 and S2 without murmurs. ABDOMEN: Soft, not distended. Prominent panniculus. LABORATORY DATA: White cell count 13.5, hemoglobin 8.9, platelets 276, 73% neutrophils. Creatinine is at 1.19, which was lower than admission. The sodium is up to 131. ASSESSMENT AND DISCUSSION: History of alcoholism, encephalopathy, and no evidence of recurrence of the bacteremia since [facility] admission, abnormal urinalysis with positive cultures and concern for invasive urinary tract infection, on meropenem at this time for an extended-spectrum beta-lactamases gram-negative jess. This should be able to be discontinued in the next few days and then she will be just on the MRSA IV therapy through the PICC line with the same scheduled regimen as previously. It is possible that the urinary findings are not related to the patient's change in mental status that led to admission. Job ID: [id number]
--- NOTE | 2019-02-02 20:01 | PRG ---
DATE OF SERVICE: 02/02/2019 SUBJECTIVE: A 63-year-old female with multiple medical conditions, being followed up for hyponatremia. The patient had developed acute encephalopathy and was found to have urinary tract infection and hyponatremia. Mental status has improved to baseline. She however complains of some shortness of breath with exertion. Denied chest pain or fever. OBJECTIVE: VITAL SIGNS: Temperature 97.5, pulse 76, respiratory rate 18, SpO2 of 96% on 1 L nasal cannula, blood pressure is 147/75. GENERAL: Obese female, in no distress. Afebrile, anicteric. HEENT: Normocephalic, atraumatic. Alopecia noted. CARDIOVASCULAR: Regular rhythm and rate with normal heart sounds 1 and 2. RESPIRATORY: Fair air entry bilaterally with few transmitted sounds and scattered rhonchi. GI: Abdomen is obese, soft, nontender, nondistended with normal bowel sounds. EXTREMITIES: Grossly normal with no obvious edema or erythema. NEUROLOGIC: Conscious, alert, oriented x3 with appropriate mental status. DIAGNOSTIC DATA: CBC showed WBC count of 13.5, hemoglobin of 8.9, platelet of 276. BMP showed sodium 131, potassium 4.9, chloride 97, CO2 of 28, BUN 32, creatinine 1.19, glucose 110, calcium 9.4. ASSESSMENT: 1. Symptomatic hyponatremia: Sodium is improving with free water fluid restriction. Sodium today is 131. 2. Acute encephalopathy: Thought to be due to hyponatremia and urinary tract infection. Improved to baseline. 3. Chronic kidney disease stage 3 with possible reversible component. Creatinine is 1.19 today from peak of 1.40. We will continue to monitor to see if her creatinine stabilizes. 4. Hypertension. Control is acceptable. We will continue current medications. 5. Volume status: The patient seems euvolemic. We will continue fluid restriction and monitor electrolytes and renal function. Job ID: [id number]
[2019-02-03] MEDS: Acetaminophen 325 MG TAB PO PRN (03:25)
[2019-02-03 03:35] LABS: Vancomycin, Trough 19.5 ug/mL
[2019-02-03] MEDS: Vancomycin HCl 1.25 GM in Sodium Chloride 0.9% 250 ML 250 ML IVPB SCH (04:09)
[2019-02-03 05:09] LABS: #Eosinphils 0.1 thou/uL (0.0-0.7); #Lymphocytes 3.2 thou/uL (1.20-3.40); #Monocytes 1.4 thou/uL (0.11-0.59); #Neutrophils 10.5 thou/uL (1.40-6.50); %Basophils 0.1 % (0.0-1.0); %Eosinophils 0.8 % (0.0-10.0); %Lymphocytes 20.9 % (21.0-51.0); %Monocytes 8.9 % (0.0-10.0); %Neutrophils 69.3 % (42.0-75.0); Hemoglobin 10.1 g/dL (12.0-16.0); Mean Corpuscular HGB CONC 30.3 g/dL (32.0-36.0); Mean Corpuscular Hemoglobin 28.1 pg (27.0-31.0); Mean Corpuscular Volume 92.8 fL (78.0-98.0); Mean Platelet Volume 7.5 fL (7.4-10.4); Platelet Count 285 thou/uL (130-400); RBC Distribution Width 14.7 % (11.5-14.5); Red Blood Cell (RBC) Count 3.58 mill/uL (4.20-5.40); White Blood Cell (WBC) Count 15.2 thou/uL (4.8-10.8)
[2019-02-03 05:24] LABS: Anion Gap 14 mmol/L (10-20); BUN (Urea Nitrogen) 27 mg/dL (9.8-20.1); Calc. Creatinine Clearance 114 mL/min (70-130); Calcium 9.5 mg/dL (7.8-10.44); Carbon Dioxide 26 mmol/L (23-31); Chloride 94 mmol/L (98-107); Estimated GFR-MDRD 67; Glucose 87 mg/dL (80-115); Potassium 4.8 mmol/L (3.5-5.1); Sodium 129 mmol/L (136-145)
[2019-02-03] MEDS: MEROPENEM 1 GM/50 ML 1 GM in Premix Bag 1 BAG IVPB SCH ×2 (05:45→18:37)
[2019-02-03] MEDS: Levothyroxine Sodium 25 MCG TAB PO SCH (05:45)
[2019-02-03] MEDS: HYDROcodone/Acetaminophen 5/325 mg Tablet PO PRN ×3 (05:46→20:19)
[2019-02-03] MEDS: predniSONE 20 MG TAB PO SCH (08:59)
[2019-02-03] MEDS: Senokot S 8.6-50 MG TAB PO SCH ×2 (08:59→20:20)
[2019-02-03] MEDS: PARoxetine 20 MG TAB PO SCH (08:59)
[2019-02-03] MEDS: Metoprolol Tartrate 25 MG TAB PO SCH ×2 (08:59→20:19)
[2019-02-03] MEDS: Amlodipine 10 MG TAB PO SCH (09:00)
[2019-02-03] MEDS: Thiamine 100 MG TAB PO SCH (09:00)
[2019-02-03] MEDS: Calcium Carbonate 600 MG TAB PO SCH ×2 (09:00→20:18)
[2019-02-03] MEDS: Cyanocobalamin (Vitamin B-12) 1,000 MCG TAB PO SCH (09:00)
[2019-02-03] MEDS: Multivitamin W/ Minerals 1 TAB PO SCH (09:00)
[2019-02-03] MEDS: Folic Acid 1 MG TAB PO SCH (09:00)
[2019-02-03] MEDS: Saccharomyces boulardii 250 MG CAP PO SCH (09:00)
[2019-02-03] MEDS: Polyethylene Glycol 3350 17 GM Packet PO SCH (09:01)
[2019-02-03] MEDS: hydrALAZINE 25 MG TAB PO SCH ×3 (09:10→20:18)
--- NOTE | 2019-02-03 09:11 | PRG ---
DATE OF SERVICE: 02/03/2019 SUBJECTIVE: Asuncion Leslie is a 63-year-old female. This morning, temperature is 97, pulse 77, respiratory rate 20, saturations are 93% on 1 L, blood pressure 171/83. Denies any pain or discomfort. Sodium is 129. Otherwise, labs are unremarkable. White count 15,000. She denies any pain or discomfort. OBJECTIVE: CHEST: Decreased breath sounds. No wheezing. CARDIAC: Normal S1 and S2. No gallops. ABDOMEN: No masses. IMPRESSION: 1. Hyponatremia, chronic, probably aggravated by medication. 2. Encephalopathy, improved. 3. Morbid obesity, sepsis syndrome, severe deconditioning. PLAN: Continue antibiotics as per Infectious Disease. PT, supportive care, eventually placement. Job ID: [id number]
[2019-02-03] MEDS ORDERED: traMADol HCl 50 MG TAB PO PRN (12:29)
--- NOTE | 2019-02-03 15:56 | PRG ---
DATE OF SERVICE: SUBJECTIVE: A 63-year-old female being followed up for hyponatremia. The patient was admitted due to altered mental status, thought to be acute encephalopathy related to acute UTI as well as hyponatremia. Clinically improved. Denied any new complaints. OBJECTIVE: VITAL SIGNS: Temperature 97.9, pulse 83, respiratory rate 18, SpO2 of 96% on 1 L nasal cannula, blood pressure 167/70. GENERAL: Obese female, in no distress. Afebrile. Anicteric. Acyanotic. CARDIOVASCULAR: Regular rhythm and rate with normal heart sounds. RESPIRATORY: Fair air entry bilaterally with no obvious crackle or rhonchi or use of accessory muscles. GI: Obese, soft, nontender, nondistended with normal bowel sounds. EXTREMITIES: Grossly normal looking atraumatic with no obvious edema or erythema. NEUROLOGIC: Conscious, alert, oriented x3 with appropriate mental status. Cranial nerves 2 through 12 are intact. DIAGNOSTIC DATA: BMP showed sodium 129, which is down from 131 yesterday; potassium 4.8; chloride 94; CO2 of 26; BUN 27; creatinine 0.86, which is down from admission level of 1.4; glucose 87, calcium 9.5. CBC showed WBC count of 15.2, hemoglobin of 10.1, platelet of 285. Intake and output showed that the patient took 1290 in with 2425 out with negative balance of a 1135. ASSESSMENT: 1. Hyponatremia: This is felt to be due to SIADH related to SSRI use, plus or minus contribution from hydrochlorothiazide. The patient is currently off hydrochlorothiazide. Plasma sodium went down from 131 yesterday to 129 today. This most likely is due to increased free water intake. The patient clearly took more fluid than recommended. I have discussed with the nursing staff to as well as with the patient to be compliant with the fluid restriction. I further reduced it to 800 per 24 hours. We will recheck BMP in the morning. 2. Acute kidney injury: This most likely related to hemodynamic factors as well acute infection. Creatinine continues to trend down to the lowest it has been. On presentation, creatinine was 1.4, today is 0.8. 3. Hypertension: Control is inadequate. We will increase hydralazine to 50 mg t.i.d. If BP remains uncontrolled, we will consider adding RAAS alba. 4. MRSA spinal infection. The patient is on long-term antibiotics as per Infectious Disease and the primary attending. Job ID: [id number] MTDD
--- NOTE | 2019-02-03 16:04 | PDOC.PN ---
- Subjective Encounter Start Date: 02/03/19 Encounter Start Time: 16:02 Subjective: feels much better today.back pain better but still having breakthru pain -: ambulating w PT,good appetite - Objective Resuscitation Status - Order Detail: 01/28/19 23:12 Resuscitation Status Routine Resuscitation Status: FULL: Full Resuscitation MAR Reviewed: Yes Vital Signs & Weight: Vital Signs (12 hours) Temp Pulse Resp BP BP Pulse Ox 02/03/19 12:30 80 14 02/03/19 12:00 97.0 F L 76 18 176/84 H 02/03/19 09:10 83 167/70 H 02/03/19 09:00 83 167/70 H 02/03/19 08:00 97.9 F 83 18 167/70 H 98 02/03/19 07:23 70 14 Weight Weight 238 lb 11.2 oz Most Recent Monitor Data Heart Rate from ECG 87 NIBP 137/88 NIBP BP-Mean 104 Respiration from ECG 26 SpO2 98 I&O: 02/02/19 02/03/19 02/04/19 06:59 06:59 06:59 Intake Total 1210 1290 Output Total 2250 2425 800 Balance -1040 -1135 -800 Result Diagrams: 02/03/19 04:36 02/03/19 04:36 Additional Labs: Accuchecks 02/02/19 02/02/19 17:01 11:14 POC Glucose 167 H 122 H Microbiology 02/01/19 01:10 Stool Stool Occult Blood (KARON) - Final 01/28/19 19:30 Urine voided Urine Culture - Final Escherichia coli Gram Negative Eddie 01/28/19 18:45 Venous blood - Right Arm Blood Culture - Final NO GROWTH IN 5 DAYS 01/28/19 18:45 Venous blood - Left Arm Blood Culture - Final NO GROWTH IN 5 DAYS 01/28/19 18:45 Venous blood - Right Arm Blood Culture - Preliminary NO GROWTH AT 48 HOURS 01/28/19 18:45 Venous blood - Left Arm Blood Culture - Preliminary NO GROWTH AT 48 HOURS Phys Exam - Physical Examination Constitutional: NAD pale and chrnically ill looking HEENT: PERRLA, moist MMs, sclera anicteric, TM's clear, 2+ tonsils Neck: no nodes, no JVD, supple, full ROM Respiratory: no wheezing, no rales, no rhonchi Cardiovascular: RRR, no significant murmur Gastrointestinal: soft, non-tender, no distention, positive bowel sounds Musculoskeletal: no edema, pulses present Neurological: non-focal, normal sensation, moves all 4 limbs Psychiatric: normal affect, A&O x 3 Skin: no rash Dx/Plan (1) Sepsis Code(s): A41.9 - SEPSIS, UNSPECIFIED ORGANISM Status: Acute Comment: MDR UTI w recent MRSA spine.cont Vancomycin and meropenam.ID also following.await final recs. Clinically stable (2) UTI (urinary tract infection) Status: Acute Comment: as #1.cont meropenam (3) Hyponatremia Code(s): E87.1 - HYPO-OSMOLALITY AND HYPONATREMIA Status: Acute Comment: improving.SIADH.cont free H2O restriction.Nephrology recs noted.monitor (4) Chronic kidney disease (CKD) Code(s): N18.9 - CHRONIC KIDNEY DISEASE, UNSPECIFIED Status: Acute Qualifiers: Chronic kidney disease stage: stage 3 (moderate) Qualified Code(s): N18.3 - Chronic kidney disease, stage 3 (moderate) Comment: stable (5) Chronic osteomyelitis of lumbar spine Code(s): M86.68 - OTHER CHRONIC OSTEOMYELITIS, OTHER SITE Status: Chronic Comment: appreciate ID service input.cont Vancomycin (6) GERD (gastroesophageal reflux disease) Code(s): K21.9 - GASTRO-ESOPHAGEAL REFLUX DISEASE WITHOUT ESOPHAGITIS Status: Chronic (7) Hypertension Code(s): I10 - ESSENTIAL (PRIMARY) HYPERTENSION Status: Chronic Comment: controlled. cont Amlodipine,BB and hydralazine.PRN antihypertensives - Plan continue antibiotics, PT/OT, respiratory therapy, incentive spirometry, out of bed/ambulate, DVT proph w/SCDs Sodium lower again but pt not following recommended fluid restriction -: increase as per Nephro recs & monitor. -: BP better. hydralazine increased -: add prn tramadol for better pain control -: cont Abx as per Id recs for now.HD stable & clinically better * . Review of Systems - Review of Systems Constitutional: weakness, malaise Respiratory: negative: Cough, Dry, Shortness of Breath, Hemoptysis, SOB with Excertion, Pleuritic Pain, Sputum, Wheezing Cardiovascular: negative: chest pain, palpitations, orthopnea, paroxysmal nocturnal dyspnea, edema, light headedness, other Gastrointestinal: negative: Nausea, Vomiting, Abdominal Pain, Diarrhea, Constipation, Melena, Hematochezia, Other Genitourinary: negative: Dysuria, Frequency, Incontinence, Hematuria, Retention , Other Musculoskeletal: Back Pain. negative: Neck Pain, Shoulder Pain, Arm Pain, Hand Pain, Leg Pain, Foot Pain, Other Neurological: negative: Weakness, Numbness, Incoordination, Change in Speech, Confusion, Seizures, Other - Medications/Allergies Allergies/Adverse Reactions: Allergies Allergy/AdvReac Type Severity Reaction Status Date / Time levofloxacin [From Levaquin] Allergy Verified 01/29/19 03:16 morphine Allergy Verified 01/29/19 03:16 Penicillins Allergy Verified 01/29/19 03:16 Medications: Current Medications Acetaminophen (Tylenol) 650 mg PO Q4H PRN PRN Reason: Headache/Fever/Mild Pain (1-3) Last Admin: 02/03/19 03:25 Dose: 650 mg Hydrocodone Bitart/Acetaminophen ([place] 5/325) 1 tab PO Q6H PRN PRN Reason: Moderate Pain (4-6) Last Admin: 02/03/19 12:23 Dose: 1 tab Albuterol Sulfate (Albuterol Sulfate) 1.25 mg NEB [id number] PRN PRN Reason: Wheezing Albuterol/Ipratropium (Duoneb) 3 ml NEB [id number] [facility] Last Admin: 02/03/19 12:30 Dose: 3 ml Amlodipine Besylate (Norvasc) 10 mg PO DAILY [facility] Last Admin: 02/03/19 09:00 Dose: 10 mg Benzonatate (Tessalon) 100 mg PO TIDPRN PRN PRN Reason: Cough Calcium Carbonate (Caltrate) 1,200 mg PO BID [facility] Last Admin: 02/03/19 09:00 Dose: 1,200 mg Cyanocobalamin (Vitamin B-12) 1,000 mcg PO DAILY [facility] Last Admin: 02/03/19 09:00 Dose: 1,000 mcg Dextrose/Water (Dextrose 50%) 25 gm SLOW IVP PRN PRN PRN Reason: Hypoglycemia Last Admin: 01/29/19 10:42 Dose: 25 gm Folic Acid (Folvite) 1 mg PO DAILY [facility] Last Admin: 02/03/19 09:00 Dose: 1 mg Guaifenesin (Robitussin Sf) 100 mg PO Q4H PRN PRN Reason: Cough Last Admin: 02/02/19 04:20 Dose: 100 mg Hydralazine HCl (Apresoline) 10 mg SLOW IVP Q4H PRN PRN Reason: SBP Greater Than 170 Last Admin: 02/02/19 04:23 Dose: 10 mg Hydralazine HCl (Apresoline) 50 mg PO TID [facility] Meropenem 1 gm/ Device 50 mls @ 50 mls/hr IVPB Q12H [facility] Last Admin: 02/03/19 05:45 Dose: 50 mls Vancomycin HCl 1.25 gm/ Sodium (Chloride) 250 mls @ 166.667 mls/hr IVPB Q24HR [facility] Last Admin: 02/03/19 04:09 Dose: 250 mls Iron/Minerals/Multivitamins (Theragran M) 1 tab PO DAILY [facility] Last Admin: 02/03/19 09:00 Dose: 1 tab Levothyroxine Sodium (Synthroid) 25 mcg PO 0600 [facility] Last Admin: 02/03/19 05:45 Dose: 25 mcg Metoprolol Tartrate (Lopressor) 25 mg PO BID [facility] Last Admin: 02/03/19 08:59 Dose: 25 mg Miscellaneous Medication (Pharmacy To Dose) 1 each IVPB PRN PRN PRN Reason: Pharmacy to dose Miscellaneous Medication (Pharmacy To Dose) 1 each IVPB ASDIR [facility] Ondansetron HCl (Zofran Odt) 4 mg PO Q6H PRN PRN Reason: Nausea/Vomiting Ondansetron HCl (Zofran) 4 mg IVP Q6H PRN PRN Reason: Nausea/Vomiting Pantoprazole Sodium (Protonix) 40 mg PO DAILY [facility] Last Admin: 02/03/19 08:59 Dose: 40 mg Paroxetine HCl (Paxil) 10 mg PO DAILY [facility] Last Admin: 02/03/19 08:59 Dose: 10 mg Polyethylene Glycol (Miralax) 17 gm PO DAILY [facility] Last Admin: 02/03/19 09:01 Dose: Not Given Prednisone (Prednisone) 20 mg PO QAM-WM [facility] Last Admin: 02/03/19 08:59 Dose: 20 mg Saccharomyces Boulardii (Florastor) 250 mg PO DAILY [facility] Last Admin: 02/03/19 09:00 Dose: 250 mg Senna/Docusate Sodium (Senokot S) 2 tab PO BID [facility] Last Admin: 02/03/19 08:59 Dose: 2 tab Sodium Chloride (Flush - Normal Saline) 10 ml IVF Q12HR [facility] Last Admin: 02/03/19 09:01 Dose: 10 ml Sodium Chloride (Flush - Normal Saline) 10 ml IVF PRN PRN PRN Reason: Saline Flush Last Admin: 02/01/19 17:36 Dose: 10 ml Sodium Chloride (Flush - Normal Saline) 10 ml IVF PRN PRN PRN Reason: Saline Flush Temazepam (Restoril) 15 mg PO HSPRN PRN PRN Reason: Insomnia Thiamine HCl (Thiamine) 100 mg PO DAILY [facility] Last Admin: 02/03/19 09:00 Dose: 100 mg Tramadol HCl (Ultram) 50 mg PO Q6H PRN PRN Reason: Pain 7-10
[2019-02-04] MEDS: HYDROcodone/Acetaminophen 5/325 mg Tablet PO PRN (02:07)
[2019-02-04] MEDS: Vancomycin HCl 1.25 GM in Sodium Chloride 0.9% 250 ML 250 ML IVPB SCH (04:00)
[2019-02-04 04:40] LABS: #Eosinphils 0.2 thou/uL (0.0-0.7); #Lymphocytes 2.9 thou/uL (1.20-3.40); #Monocytes 1.3 thou/uL (0.11-0.59); #Neutrophils 10.1 thou/uL (1.40-6.50); %Eosinophils 1.1 % (0.0-10.0); %Lymphocytes 20.1 % (21.0-51.0); %Monocytes 9.1 % (0.0-10.0); %Neutrophils 69.7 % (42.0-75.0); Hemoglobin 9.7 g/dL (12.0-16.0); Mean Corpuscular Hemoglobin 29.4 pg (27.0-31.0); Mean Corpuscular Volume 91.7 fL (78.0-98.0); Mean Platelet Volume 7.6 fL (7.4-10.4); Platelet Count 272 thou/uL (130-400); RBC Distribution Width 14.9 % (11.5-14.5); Red Blood Cell (RBC) Count 3.31 mill/uL (4.20-5.40); White Blood Cell (WBC) Count 14.5 thou/uL (4.8-10.8)
[2019-02-04 04:59] LABS: Anion Gap 12 mmol/L (10-20); BUN (Urea Nitrogen) 28 mg/dL (9.8-20.1); Calc. Creatinine Clearance 117 mL/min (70-130); Calcium 9.1 mg/dL (7.8-10.44); Carbon Dioxide 29 mmol/L (23-31); Chloride 95 mmol/L (98-107); Estimated GFR-MDRD 68; Glucose 94 mg/dL (80-115); Sodium 131 mmol/L (136-145)
[2019-02-04] MEDS: Levothyroxine Sodium 25 MCG TAB PO SCH (05:56)
[2019-02-04] MEDS: MEROPENEM 1 GM/50 ML 1 GM in Premix Bag 1 BAG IVPB SCH ×2 (05:58→17:16)
--- NOTE | 2019-02-04 09:14 | PRG ---
DATE OF SERVICE: 02/04/2019 SUBJECTIVE: A 63-year-old female being followed up for hyponatremia. No new problem. Denied abdominal pain or chest pain. OBJECTIVE: VITAL SIGNS: Temperature 98.0, pulse 76, respiratory rate 18, SpO2 95% on 2 L nasal cannula, blood pressure is 145/68. GENERAL: Obese female, in no distress. Afebrile. Anicteric. Acyanotic. HEENT: Normocephalic, atraumatic. Oral mucosa is moist. CARDIOVASCULAR: Regular rhythm and rate with normal heart sounds one and two. RESPIRATORY: Fair air entry bilateral with few transmitted sounds. GASTROINTESTINAL: Abdomen is obese, soft, nontender, nondistended with normal bowel sounds. EXTREMITIES: Grossly normal-looking atraumatic with no obvious edema or erythema. NEUROLOGIC: Conscious, alert, oriented x3 with appropriate mental status. Total intake in the last 24 hours is 1360 with total output of 2400 and negative balance of 1040. DIAGNOSTIC DATA: CBC showed WBC count of 14.5, hemoglobin of 9.7, platelet of 272. BMP showed sodium 131, potassium 5.0, chloride 95, CO2 of 29, BUN 28, creatinine 0.84, glucose 94, calcium 9.1. ASSESSMENT AND PLAN: 1. Hyponatremia: Due to SIADH related to medications. The patient's sodium is up today with better fluid restriction. Need to be compliant with fluid restriction reiterated with the patient and she verbalized understanding. 2. Acute kidney injury: Related to hemodynamic factors. Improved. Creatinine is down to 0.84. The patient is currently off diuretics. 3. Chronic kidney disease stage 3: The patient carries a diagnosis of chronic kidney disease stage 3. Creatinine is down to 0.8 with EGFR of 68, putting her at CKD stage 2. We will monitor renal function closely. 4. Hypertension: Control is acceptable. We will monitor with increased hydralazine with a view to adjust the medication further. Job ID: [id number]
[2019-02-04] MEDS: Saccharomyces boulardii 250 MG CAP PO SCH (09:20)
[2019-02-04] MEDS: Folic Acid 1 MG TAB PO SCH (09:20)
[2019-02-04] MEDS: Thiamine 100 MG TAB PO SCH (09:20)
[2019-02-04] MEDS: Calcium Carbonate 600 MG TAB PO SCH (09:20)
[2019-02-04] MEDS: PARoxetine 20 MG TAB PO SCH (09:20)
[2019-02-04] MEDS: predniSONE 20 MG TAB PO SCH (09:21)
[2019-02-04] MEDS: Metoprolol Tartrate 25 MG TAB PO SCH (09:21)
[2019-02-04] MEDS: Multivitamin W/ Minerals 1 TAB PO SCH (09:21)
[2019-02-04] MEDS: Amlodipine 10 MG TAB PO SCH (09:21)
--- NOTE | 2019-02-04 09:21 | PRG ---
DATE OF SERVICE: 02/04/2019 SUBJECTIVE: This morning, awake, alert, and responsive. No longer encephalopathic_. OBJECTIVE: VITAL SIGNS: Saturations are 95% on 2 L, respirations 14, pulse 80, temperature 98, and blood pressure 145/68. CHEST: No wheezing or crackles. CARDIAC: Normal S1 and S2. No gallops. ABDOMEN: No masses. LABORATORY STUDIES: Sodium has improved to 131, potassium is stable at 5 with normal BUN and creatinine. ASSESSMENT: Sepsis syndrome, urinary tract infection Staphylococcus, encephalopathy, morbid obesity. PLAN: Pulmonary elena, he is much improved. Pulmonary will follow at a distance. She has ongoing antibiotics and eventually rehab. Job ID: [id number] MTDD
[2019-02-04] MEDS: Polyethylene Glycol 3350 17 GM Packet PO SCH (09:22)
[2019-02-04] MEDS: Senokot S 8.6-50 MG TAB PO SCH (09:22)
[2019-02-04] MEDS: hydrALAZINE 25 MG TAB PO SCH ×2 (09:22→15:46)
[2019-02-04] MEDS: Cyanocobalamin (Vitamin B-12) 1,000 MCG TAB PO SCH (09:22)
[2019-02-04] MEDS ORDERED: Cyclobenzaprine 10 MG TAB PO SCH (10:45)
[2019-02-04] MEDS ORDERED: Ketorolac Tromethamine 30 MG/ML VIAL IVP SCH (10:45)
[2019-02-04] MEDS: Nystatin Powder 15 GM BOT TOP PRN (13:16)
--- NOTE | 2019-02-04 14:16 | PDOC.PN ---
- Subjective Encounter Start Date: 02/04/19 Encounter Start Time: 14:15 Subjective: c/o severe back pain and spasms -: RN reports that pt refuses to turn & groin redness - Objective Resuscitation Status - Order Detail: 01/28/19 23:12 Resuscitation Status Routine Resuscitation Status: FULL: Full Resuscitation MAR Reviewed: Yes Vital Signs & Weight: Vital Signs (12 hours) Temp Pulse Pulse Pulse Resp BP BP 02/04/19 12:53 80 14 02/04/19 12:00 97.4 F L 72 16 02/04/19 09:28 78 77 167/78 H 02/04/19 09:22 75 153/71 H 02/04/19 09:21 75 153/71 H 02/04/19 08:00 96.5 F L 75 18 02/04/19 07:25 02/04/19 06:54 80 14 02/04/19 04:00 98.0 F 76 18 BP BP Pulse Ox 02/04/19 12:53 02/04/19 12:00 174/84 H 02/04/19 09:28 172/80 H 02/04/19 09:22 02/04/19 09:21 02/04/19 08:00 153/71 H 99 02/04/19 07:25 98 02/04/19 06:54 02/04/19 04:00 145/68 H 95 Weight Weight 237 lb 15.19 oz Most Recent Monitor Data Heart Rate from ECG 87 NIBP 137/88 NIBP BP-Mean 104 Respiration from ECG 26 SpO2 98 I&O: 02/03/19 02/04/19 02/05/19 06:59 06:59 06:59 Intake Total 1290 1360 Output Total 2425 2400 Balance -1135 -1040 Result Diagrams: 02/04/19 04:00 02/04/19 04:00 Additional Labs: Microbiology 02/01/19 01:10 Stool Stool Occult Blood ([facility]ARON) - Final 01/28/19 19:30 Urine voided Urine Culture - Final Escherichia coli Gram Negative Eddie 01/28/19 18:45 Venous blood - Right Arm Blood Culture - Final NO GROWTH IN 5 DAYS 01/28/19 18:45 Venous blood - Left Arm Blood Culture - Final NO GROWTH IN 5 DAYS Laboratory Tests 01/28/19 01/29/19 01/30/19 18:45 15:36 01:49 Sodium 126 L Creatinine 1.40 H 1.42 H 1.28 H 01/30/19 01/31/19 02/01/19 13:45 02:09 02:15 Sodium 129 L 130 L Creatinine 1.19 H 1.31 H 02/03/19 02/04/19 04:36 04:00 Sodium 129 L 131 L Creatinine 0.86 0.84 Phys Exam - Physical Examination Constitutional: NAD HEENT: PERRLA, moist MMs, sclera anicteric, oral pharynx no lesions Neck: no nodes, no JVD, supple, full ROM Respiratory: no wheezing, no rales, no rhonchi Cardiovascular: RRR, no significant murmur Gastrointestinal: soft, non-tender, no distention, positive bowel sounds Musculoskeletal: no edema, pulses present Neurological: non-focal, normal sensation, moves all 4 limbs Deviation from normal: crying from pain Skin: no rash Dx/Plan (1) Sepsis Code(s): A41.9 - SEPSIS, UNSPECIFIED ORGANISM Status: Acute Comment: MDR UTI w recent MRSA spine.cont Vancomycin and meropenam.ID also following.await final recs. Clinically stable (2) UTI (urinary tract infection) Status: Acute Comment: as #1.cont meropenam (3) Hyponatremia Code(s): E87.1 - HYPO-OSMOLALITY AND HYPONATREMIA Status: Acute Comment: improving.SIADH.cont free H2O restriction.Nephrology recs noted.monitor (4) Chronic kidney disease (CKD) Code(s): N18.9 - CHRONIC KIDNEY DISEASE, UNSPECIFIED Status: Acute Qualifiers: Chronic kidney disease stage: stage 3 (moderate) Qualified Code(s): N18.3 - Chronic kidney disease, stage 3 (moderate) Comment: stable (5) Chronic osteomyelitis of lumbar spine Code(s): M86.68 - OTHER CHRONIC OSTEOMYELITIS, OTHER SITE Status: Chronic Comment: appreciate ID service input.cont Vancomycin (6) GERD (gastroesophageal reflux disease) Code(s): K21.9 - GASTRO-ESOPHAGEAL REFLUX DISEASE WITHOUT ESOPHAGITIS Status: Chronic (7) Hypertension Code(s): I10 - ESSENTIAL (PRIMARY) HYPERTENSION Status: Chronic Comment: controlled. cont Amlodipine,BB and hydralazine.PRN antihypertensives - Plan continue antibiotics, PT/OT, out of bed/ambulate, DVT proph w/SCDs 1 dose flexeril and toradol.on prn norco and now tramadol -: Waffle mattress. encouraged to move and change positions when in bed -: on vancomycin for h/o Spinal osteomyelitis.if pain persists,will repeat MRI -: cont meropenam for MDR UTI.final ID recs awaited -: Supportive care.Leucocytosis without Left shift-monitor * . Review of Systems - Review of Systems Constitutional: weakness, malaise. negative: fever, chills, sweats, other Respiratory: negative: Cough, Dry, Shortness of Breath, Hemoptysis, SOB with Excertion, Pleuritic Pain, Sputum, Wheezing Cardiovascular: negative: chest pain, palpitations, orthopnea, paroxysmal nocturnal dyspnea, edema, light headedness, other Gastrointestinal: negative: Nausea, Vomiting, Abdominal Pain, Diarrhea, Constipation, Melena, Hematochezia, Other Genitourinary: negative: Dysuria, Frequency, Incontinence, Hematuria, Retention , Other Musculoskeletal: Back Pain Neurological: negative: Weakness, Numbness, Incoordination, Change in Speech, Confusion, Seizures, Other - Medications/Allergies Allergies/Adverse Reactions: Allergies Allergy/AdvReac Type Severity Reaction Status Date / Time levofloxacin [From Levaquin] Allergy Verified 01/29/19 03:16 morphine Allergy Verified 01/29/19 03:16 Penicillins Allergy Verified 01/29/19 03:16 Medications: Current Medications Acetaminophen (Tylenol) 650 mg PO Q4H PRN PRN Reason: Headache/Fever/Mild Pain (1-3) Last Admin: 02/03/19 03:25 Dose: 650 mg Hydrocodone Bitart/Acetaminophen ([place] 5/325) 1 tab PO Q6H PRN PRN Reason: Moderate Pain (4-6) Last Admin: 02/04/19 02:07 Dose: 1 tab Albuterol Sulfate (Albuterol Sulfate) 1.25 mg NEB [id number] PRN PRN Reason: Wheezing Albuterol/Ipratropium (Duoneb) 3 ml NEB [id number] [facility] Last Admin: 02/04/19 12:53 Dose: 3 ml Amlodipine Besylate (Norvasc) 10 mg PO DAILY [facility] Last Admin: 02/04/19 09:21 Dose: 10 mg Benzonatate (Tessalon) 100 mg PO TIDPRN PRN PRN Reason: Cough Calcium Carbonate (Caltrate) 1,200 mg PO BID [facility] Last Admin: 02/04/19 09:20 Dose: 1,200 mg Cyanocobalamin (Vitamin B-12) 1,000 mcg PO DAILY [facility] Last Admin: 02/04/19 09:22 Dose: 1,000 mcg Dextrose/Water (Dextrose 50%) 25 gm SLOW IVP PRN PRN PRN Reason: Hypoglycemia Last Admin: 01/29/19 10:42 Dose: 25 gm Folic Acid (Folvite) 1 mg PO DAILY [facility] Last Admin: 02/04/19 09:20 Dose: 1 mg Guaifenesin (Robitussin Sf) 100 mg PO Q4H PRN PRN Reason: Cough Last Admin: 02/02/19 04:20 Dose: 100 mg Hydralazine HCl (Apresoline) 10 mg SLOW IVP Q4H PRN PRN Reason: SBP Greater Than 170 Last Admin: 02/02/19 04:23 Dose: 10 mg Hydralazine HCl (Apresoline) 50 mg PO TID [facility] Last Admin: 02/04/19 09:22 Dose: 50 mg Meropenem 1 gm/ Device 50 mls @ 50 mls/hr IVPB Q12H [facility] Last Admin: 02/04/19 05:58 Dose: 50 mls Vancomycin HCl 1.25 gm/ Sodium (Chloride) 250 mls @ 166.667 mls/hr IVPB Q24HR [facility] Last Admin: 02/04/19 04:00 Dose: 250 mls Iron/Minerals/Multivitamins (Theragran M) 1 tab PO DAILY [facility] Last Admin: 02/04/19 09:21 Dose: 1 tab Ketorolac Tromethamine (Toradol) 15 mg IVP ONE [facility] Stop: 02/09/19 10:46 Last Admin: 02/04/19 10:55 Dose: 15 mg Levothyroxine Sodium (Synthroid) 25 mcg PO 0600 [facility] Last Admin: 02/04/19 05:56 Dose: 25 mcg Metoprolol Tartrate (Lopressor) 25 mg PO BID [facility] Last Admin: 02/04/19 09:21 Dose: 25 mg Miscellaneous Medication (Pharmacy To Dose) 1 each IVPB PRN PRN PRN Reason: Pharmacy to dose Miscellaneous Medication (Pharmacy To Dose) 1 each IVPB ASDIR [facility] Nystatin (Mycostatin Powder) 1 gm TOP BID PRN PRN Reason: Topical Irritations Last Admin: 02/04/19 13:16 Dose: 1 applic Ondansetron HCl (Zofran Odt) 4 mg PO Q6H PRN PRN Reason: Nausea/Vomiting Ondansetron HCl (Zofran) 4 mg IVP Q6H PRN PRN Reason: Nausea/Vomiting Pantoprazole Sodium (Protonix) 40 mg PO DAILY [facility] Last Admin: 02/04/19 09:20 Dose: 40 mg Paroxetine HCl (Paxil) 10 mg PO DAILY [facility] Last Admin: 02/04/19 09:20 Dose: 10 mg Polyethylene Glycol (Miralax) 17 gm PO DAILY [facility] Last Admin: 02/04/19 09:22 Dose: Not Given Prednisone (Prednisone) 20 mg PO QAM-WM [facility] Last Admin: 02/04/19 09:21 Dose: 20 mg Saccharomyces Boulardii (Florastor) 250 mg PO DAILY [facility] Last Admin: 02/04/19 09:20 Dose: 250 mg Senna/Docusate Sodium (Senokot S) 2 tab PO BID [facility] Last Admin: 02/04/19 09:22 Dose: 2 tab Sodium Chloride (Flush - Normal Saline) 10 ml IVF Q12HR [facility] Last Admin: 02/04/19 09:23 Dose: 10 ml Sodium Chloride (Flush - Normal Saline) 10 ml IVF PRN PRN PRN Reason: Saline Flush Last Admin: 02/03/19 18:38 Dose: 10 ml Sodium Chloride (Flush - Normal Saline) 10 ml IVF PRN PRN PRN Reason: Saline Flush Temazepam (Restoril) 15 mg PO HSPRN PRN PRN Reason: Insomnia Thiamine HCl (Thiamine) 100 mg PO DAILY [facility] Last Admin: 02/04/19 09:20 Dose: 100 mg Tramadol HCl (Ultram) 50 mg PO Q6H PRN PRN Reason: Pain 7-10
[2019-02-04] MEDS ORDERED: Cyclobenzaprine 10 MG TAB PO PRN (14:19)
--- NOTE | 2019-02-04 17:38 | PRG ---
DATE OF SERVICE: 02/04/2019 SUBJECTIVE: Feeling better. Still with quite prominent pain in the upper mid thoracic spine area. OBJECTIVE: HEENT: Ocular movements conjugate. VITAL SIGNS: T-max 97.4, blood pressure 170/82, pulse 81, respirations 16. Voiding without difficulty. GENERAL: Awake, alert, oriented. PSYCHIATRIC: Mental status is markedly improved. LUNGS: Clear. HEART: S1 and S2, regular rate. ABDOMEN: Soft, not distended. EXTREMITIES: Moves all extremities equally. LABORATORY DATA: White cell count 14.5, hemoglobin 9.7, and platelets 272. Sodium 131, creatinine 0.84. ASSESSMENT AND DISCUSSION: History of alcoholism, encephalopathy, possible urinary tract associated recrudescence of methicillin-resistant Staphylococcus aureus bacteremia, treated with daptomycin and ceftaroline in care home, now should be able to go back to the regimen that she had been on at the care home with the same end date of therapy and discontinue meropenem upon discharge to the care home. Job ID: [id number]
[2019-02-04 20:33] VITALS: TEMP 98.1
[2019-02-05] MEDS ORDERED: Cyclobenzaprine 10 MG TAB ONE (00:29)
[2019-02-05] MEDS ORDERED: HYDROcodone/Acetaminophen 5/325 mg Tablet ONE (03:31)
[2019-02-05] MEDS ORDERED: Levothyroxine Sodium 25 MCG TAB ONE (04:51)
[2019-02-05] MEDS: Nystatin Powder 15 GM BOT TOP PRN (08:51)
[2019-02-05] MEDS: Calcium Carbonate 600 MG TAB PO SCH ×2 (09:32→09:40)
[2019-02-05] MEDS: hydrALAZINE 25 MG TAB PO SCH ×2 (09:32→09:40)
[2019-02-05] MEDS: Metoprolol Tartrate 25 MG TAB PO SCH ×2 (09:33→09:39)
[2019-02-05] MEDS: Senokot S 8.6-50 MG TAB PO SCH ×2 (09:33→09:39)
[2019-02-05] MEDS: Multivitamin W/ Minerals 1 TAB PO SCH (09:34)
[2019-02-05] MEDS: Amlodipine 10 MG TAB PO SCH (09:34)
[2019-02-05] MEDS: Cyanocobalamin (Vitamin B-12) 1,000 MCG TAB PO SCH (09:34)
[2019-02-05] MEDS: Levothyroxine Sodium 25 MCG TAB PO SCH (09:34)
[2019-02-05] MEDS: MEROPENEM 1 GM/50 ML 1 GM in Premix Bag 1 BAG IVPB SCH (09:34)
[2019-02-05] MEDS: Folic Acid 1 MG TAB PO SCH (09:34)
[2019-02-05] MEDS: predniSONE 20 MG TAB PO SCH (09:34)
[2019-02-05] MEDS: Polyethylene Glycol 3350 17 GM Packet PO SCH (09:35)
[2019-02-05] MEDS: PARoxetine 20 MG TAB PO SCH (09:35)
[2019-02-05] MEDS: Saccharomyces boulardii 250 MG CAP PO SCH (09:35)
[2019-02-05] MEDS: Thiamine 100 MG TAB PO SCH (09:36)
[2019-02-05] MEDS: Vancomycin HCl 1.25 GM in Sodium Chloride 0.9% 250 ML 250 ML IVPB SCH (09:36)
[2019-02-05 11:09] VITALS: BMI 42.1
[2019-02-05 11:11] LABS: #Eosinphils 0.3 thou/uL (0.0-0.7); #Lymphocytes 2.3 thou/uL (1.20-3.40); #Monocytes 1.4 thou/uL (0.11-0.59); #Neutrophils 11.2 thou/uL (1.40-6.50); %Basophils 0.1 % (0.0-1.0); %Eosinophils 1.8 % (0.0-10.0); %Lymphocytes 15.3 % (21.0-51.0); %Monocytes 9.1 % (0.0-10.0); %Neutrophils 73.7 % (42.0-75.0); Hemoglobin 9.9 g/dL (12.0-16.0); Mean Corpuscular HGB CONC 31.9 g/dL (32.0-36.0); Mean Corpuscular Hemoglobin 28.8 pg (27.0-31.0); Mean Corpuscular Volume 90.3 fL (78.0-98.0); Mean Platelet Volume 7.6 fL (7.4-10.4); Platelet Count 240 thou/uL (130-400); RBC Distribution Width 15.1 % (11.5-14.5); Red Blood Cell (RBC) Count 3.43 mill/uL (4.20-5.40); White Blood Cell (WBC) Count 15.2 thou/uL (4.8-10.8)
[2019-02-05] MEDS: HYDROcodone/Acetaminophen 5/325 mg Tablet PO PRN (11:17)
[2019-02-05 11:33] LABS: Anion Gap 12 mmol/L (10-20); BUN (Urea Nitrogen) 27 mg/dL (9.8-20.1); Calc. Creatinine Clearance 111 mL/min (70-130); Calcium 9.1 mg/dL (7.8-10.44); Carbon Dioxide 29 mmol/L (23-31); Chloride 94 mmol/L (98-107); Estimated GFR-MDRD 65; Glucose 111 mg/dL (80-115); Potassium 4.2 mmol/L (3.5-5.1); Sodium 131 mmol/L (136-145)
[2019-02-05 11:39] LABS: Vancomycin, Trough 22.2 ug/mL
[2019-02-05] MEDS ORDERED: Ketorolac Tromethamine 30 MG/ML VIAL IVP SCH (12:00)
[2019-02-05] MEDS ORDERED: Ketorolac Tromethamine 30 MG/ML VIAL IVP PRN (12:03)
[2019-02-05 12:18] VITALS: BP 136/95
[2019-02-05] MEDS ORDERED: Vancomycin HCl 1 GM in Premix Bag 1 BAG IVPB SCH (16:00)
[2019-02-05 17:12] LABS: Vancomycin, Trough 23.5 ug/mL
--- NOTE | 2019-02-05 17:48 | PRG ---
DATE OF SERVICE: 02/05/2019 SUBJECTIVE: A 63-year-old lady being followed up for OSWALDO and hyponatremia. The patient reports feeling better and desired to be discharged. Oral intake and generalized weakness have also improved. Denied chest pain, fever, nausea, vomiting, or leg swelling. OBJECTIVE: VITAL SIGNS: Temperature 98.1, pulse 76, respiratory rate 20, SpO2 of 95% on room air, blood pressure 158/72. GENERAL: Chronically ill-looking, obese female, in no obvious distress. Afebrile. Anicteric. Acyanotic. HEENT: Normocephalic, atraumatic. Pupils are reacting to light. CARDIOVASCULAR: Regular rhythm and rate with normal heart sounds 1 and 2. RESPIRATORY: Fair air entry bilateral with some transmitted sounds. GI: Obese, soft, nontender, nondistended with normal bowel sounds. EXTREMITIES: Grossly normal looking, atraumatic with no obvious edema and erythema. NEUROLOGIC: Conscious and alert, oriented x3 with appropriate mental status. DIAGNOSTIC DATA: CBC showed WBC count of 15.2, hemoglobin of 9.9, platelet of 240. BMP showed sodium 131, potassium 4.2, chloride 94, CO2 of 29, BUN 27, creatinine 0.88, glucose 111, calcium 9.1. ASSESSMENT AND PLAN: 1. Symptomatic hyponatremia. Sodium level has improved to 131. Compliance to fluid restriction is still limited. In the last 24 hours, patient took 6 to 7 meals that documentation is inadequate. We will continue fluid restriction and need for fluid restriction reiterated with the patient even on discharge. 2. Hypertension, control is fair. We will continue current antihypertensives and monitor vitals. We will consider adding RAAS alba to get adequate BP control if BP remains suboptimal. 3. Acute kidney injury: This is felt to be related to hemodynamic factors. Creatinine has gone down from 1.4 to 0.8. We will continue to monitor renal function. 4. Hypomagnesemia: Repleted. 5. Disposition. The patient can be discharged back to the senior living with close followup. Repeat BMP in 1 week with followup is recommended. Job ID: [id number]
--- NOTE | 2019-02-06 04:23 | DIS ---
DATE OF ADMISSION: 01/28/2019 DATE OF DISCHARGE: 02/05/2019 DISCHARGE DISPOSITION: Back to [facility]. CONDITION AT THE TIME OF DISCHARGE: Stable and improved. PRIMARY CARE PHYSICIAN: Al Black MD DISCHARGE DIAGNOSES: 1. Sepsis. 2. Multi-drug resistant urinary tract infection. 3. Hyponatremia. 4. Chronic kidney disease. 5. Chronic osteomyelitis of lumbar spine on antibiotics. 6. Gastroesophageal reflux disease. 7. Hypertension. DISCHARGE MEDICATIONS: As follows: 1. Flexeril 10 mg p.o. t.i.d. p.r.n. 2. [place] 5/325 one tablet every 6 hours p.r.n. 3. Lopressor 25 mg p.o. b.i.d. 4. Florastor 250 mg daily. 5. Temazepam 15 mg at bedtime p.r.n. 6. Tramadol p.r.n. 7. Norvasc 10 mg daily. 8. Folic acid daily. 9. B12 daily. 10. Calcium daily. 11. Levothyroxine 25 mcg daily. 12. Multivitamin daily. 13. Paroxetine 10 mg daily. 14. Protonix 40 mg p.o. b.i.d. 15. Thiamine 100 mg daily. 16. Hydralazine 25 mg p.o. t.i.d. 17. Prednisone 20 mg daily. 18. Ceftaroline 400 mg IV piggyback every 12 hours. 19. Daptomycin 700 mg IV daily. IN-HOUSE CONSULTATION: 1. Pulmonary Medicine. 2. Infectious Disease, Kaushik Toro MD. 3. Nephrology, Ignacio Tolentino Obi, MD. PROCEDURES DONE IN THE HOSPITAL: 1. CT scan of the brain upon presentation did not show any acute changes. 2. Pulmonary perfusion scan which is very low probability for pulmonary embolism. 3. Transthoracic echocardiogram which shows EF of 60% to 65%, grade 1/3 diastolic dysfunction. HISTORY OF PRESENTING ILLNESS: Ms. Leslie is a 63-year-old female with past medical history of recent diagnosis of MRSA due to epidural spinal abscess on daptomycin and ceftaroline IV antibiotic via PICC line, was sent from the senior care for encephalopathy. She was found to be hallucinating, confused, more weak and was having poor appetite. Upon presentation, she was hemodynamically stable with saturating 100% on room air, heart rate 85, blood pressure 152/104. CT scan done in the ER did not show any acute changes. WBCs elevated at 13.5 with left shift. Sodium was low at 126. She also was found to have urinalysis consistent with urinary tract infection. BNP was 222, lactic acid 1.1. She was started on empiric meropenem and ID was consulted. She was diagnosed with having acute metabolic and septic encephalopathy. Please see admission history and physical dictated by Dr. Herlinda Galarza on 01/28/2019 for further details. HOSPITAL COURSE: The patient underwent multiple other testing including pulmonary perfusion scan and echocardiogram to workup her encephalopathy. She did not have any pulmonary embolism. After electrolytes were replaced and Nephrology was consulted for hyponatremia, Dr. Causey saw the patient and managed her with fluid free water restriction. ID was consulted and Dr. Toro saw the patient. She was started and continued on meropenem. Her urine culture came back positive for multidrug resistant E coli and one more gram-negative jess. According to Dr. Toro, this most likely either represents a new infection. At the time of discharge, he stopped the meropenem and continued her on daptomycin and ceftaroline in senior care, which she was taking prior to admission here. Her encephalopathy gradually resolved. She was encouraged to work with OT and PT, but she had severe back spasms and pains that prevented her from working with PT too much. She was treated with empiric pain medications and muscle relaxants. As of this morning, the patient is awake, alert, oriented, but largely bedbound. She refused to turn after multiple times from the nursing staff. She is otherwise hemodynamically stable and has been cleared for discharge from Nephrology, Pulmonary, and ID standpoint. She will be transitioned back to [facility] with continuation of daptomycin and cephalosporin. She was seen and examined prior to discharge. PHYSICAL EXAMINATION: VITAL SIGNS: This morning, temperature 98.1, pulse of 76, respirations 20, saturating 95% on room air, blood pressure 158/72, no acute distress. GENERAL: She is awake, alert, and oriented x3. CHEST: Clear to auscultation bilaterally. HEART: Rate and rhythm are regular. LABORATORY STUDIES: Her discharge sodium this morning is 131, BUN 27, creatinine 0.88, calcium 9.1. Neutrophil percentage has improved from 82% to 73%. WBC count is 15.2, because likely secondary to the patient being on steroids from Pulmonary team. She remains a high risk for readmission because of chronic bed-bound status and multiple comorbidities. TIME SPENT: Total time spent in the discharge of this patient, 35 minutes. Job ID: [id number]
== END 2019-02-05 14:28 | DRG 871 ==
LOC: ERS 17:58 → 2NO 23:12 → IMCU/EMU 01-29 12:34 → 2NO 01-31 12:16
PROVIDERS: ADMIT Internal Medicine; ATTEND Internal Medicine
DX: A41.2 Sepsis due to unspecified staphylococcus (principal); G93.41 Metabolic encephalopathy; G06.1 Intraspinal abscess and granuloma; J96.01 Acute respiratory failure with hypoxia; N39.0 Urinary tract infection, site not specified; I13.0 Hypertensive heart and chronic kidney disease with heart failure and stage 1 through stage 4 chronic kidney disease, or unspecified chronic kidney disease; I50.30 Unspecified diastolic (congestive) heart failure; N17.9 Acute kidney failure, unspecified; E22.2 Syndrome of inappropriate secretion of antidiuretic hormone; Z68.41 Body mass index [BMI] 40.0-44.9, adult; K21.9 Gastro-esophageal reflux disease without esophagitis; E66.01 Morbid (severe) obesity due to excess calories; D63.8 Anemia in other chronic diseases classified elsewhere; N18.3 Chronic kidney disease, stage 3 (moderate); F41.9 Anxiety disorder, unspecified; E03.9 Hypothyroidism, unspecified; R29.6 Repeated falls; F10.20 Alcohol dependence, uncomplicated; J44.9 Chronic obstructive pulmonary disease, unspecified; F32.9 Major depressive disorder, single episode, unspecified; T50.995A Adverse effect of other drugs, medicaments and biological substances, initial encounter; E11.649 Type 2 diabetes mellitus with hypoglycemia without coma; E87.5 Hyperkalemia; Z88.6 Allergy status to analgesic agent; Z86.14 Personal history of Methicillin resistant Staphylococcus aureus infection; Z88.1 Allergy status to other antibiotic agents; Z88.0 Allergy status to penicillin; Z87.891 Personal history of nicotine dependence; Z90.49 Acquired absence of other specified parts of digestive tract; Y92.9 Unspecified place or not applicable
CPT/HCPCS: 36415; 36416; 36430; 70450; 71045; 78582; 80048; 80053; 80202; 81003; 81015; 82140; 82274; 82550; 82570; 82728; 83540; 83550; 83605; 83735; 83880; 83930; 83935; 84100; 84300; 84443; 84484; 85025; 86140; 86850; 86900; 86901; 87040; 87077; 87086; 87186; 93005; 93306; 94640; 96365; A9540; A9558; C9113; J0360; J0712; J0878; J1650; J1885; J1940; J2185; J2920; J3370; J3475; J3490; J7050; J7512; J7620; P9016

== ENCOUNTER 2019-02-14 08:33 | Inpatient (IN) | payer BC, OTHER ==
[2019-02-14 09:17] LABS: #Basophils 0.1 thou/uL (0.0-0.2); #Eosinphils 0.6 thou/uL (0.0-0.7); #Monocytes 1.1 thou/uL (0.11-0.59); #Neutrophils 13.8 thou/uL (1.40-6.50); %Basophils 0.3 % (0.0-1.0); %Eosinophils 3.2 % (0.0-10.0); %Lymphocytes 20.2 % (21.0-51.0); %Monocytes 5.7 % (0.0-10.0); %Neutrophils 70.6 % (42.0-75.0); Hemoglobin 9.3 g/dL (12.0-16.0); Mean Corpuscular HGB CONC 32.5 g/dL (32.0-36.0); Mean Corpuscular Hemoglobin 29.6 pg (27.0-31.0); Mean Corpuscular Volume 91.1 fL (78.0-98.0); Mean Platelet Volume 7.6 fL (7.4-10.4); Platelet Count 147 thou/uL (130-400); RBC Distribution Width 15.5 % (11.5-14.5); Red Blood Cell (RBC) Count 3.14 mill/uL (4.20-5.40); White Blood Cell (WBC) Count 19.6 thou/uL (4.8-10.8)
[2019-02-14] MEDS ORDERED: Ketorolac Tromethamine 30 MG/ML VIAL ONE (09:23)
--- NOTE | 2019-02-14 09:24 | RAD ---
Exam: Chest one view HISTORY:Cough. Rib pain. Shortness of breath. Comparison: 01/29/2019 FINDINGS: Cardiac silhouette:Enlarged Pulmonary vessels: Prominent Costophrenic angles: Small left-sided effusion. Lines and tubes: Right-sided PICC line terminates in the right jugular vein. LUNGS: Diffuse interstitial and alveolar opacities. Pneumothorax: None Osseous abnormalities: None IMPRESSION: 1. Right-sided PICC line as described above. 2. Congestive heart failure. Superimposed infiltrate cannot be excluded. Continued surveillance is re commended.
[2019-02-14 09:47] LABS: ALT (SGPT) 12 U/L (8-55); AST (SGOT) 17 U/L (5-34); Albumin 3.3 g/dL (3.4-4.8); Alkaline Phosphatase 116 U/L (40-150); Anion Gap 15 mmol/L (10-20); BUN (Urea Nitrogen) 13 mg/dL (9.8-20.1); Bilirubin, Total 0.5 mg/dL (0.2-1.2); Calc. Creatinine Clearance 0 mL/min (70-130); Calcium 9.4 mg/dL (7.8-10.44); Carbon Dioxide 27 mmol/L (23-31); Chloride 92 mmol/L (98-107); Estimated GFR-MDRD 71; Globulin 3.6 g/dL (2.4-3.5); Glucose 104 mg/dL (80-115); Lipase 12 U/L (8-78); Potassium 3.7 mmol/L (3.5-5.1); Protein, Total 6.9 g/dL (6.0-8.3); Sodium 130 mmol/L (136-145)
[2019-02-14] MEDS ORDERED: Acetaminophen 325 MG TAB PO PRN (10:02)
[2019-02-14] MEDS ORDERED: Lidocaine Viscous Sol 2% 15 ml UD Cup ONE (10:13)
[2019-02-14] MEDS ORDERED: Mag-Al 1200 mg/1200 mg/30 ML UDCUP ONE (10:13)
[2019-02-14] MEDS ORDERED: HYDROcodone/Acetaminophen 10/325 mg Tablet ONE (10:13)
[2019-02-14] MEDS ORDERED: Aztreonam 2 GM in Sodium Chloride 0.9% 100 ML IVPB SCH (10:15)
[2019-02-14 12:38] LABS: Troponin I 0.025 ng/mL (< 0.028)
[2019-02-14] MEDS ORDERED: ALPRAZolam 0.25 MG TAB PO SCH (13:30)
[2019-02-14] MEDS ORDERED: ALPRAZolam 0.25 MG TAB ONE (13:36)
[2019-02-14] MEDS ORDERED: Furosemide 20 MG/2 ML VIAL SLOW IVP SCH (13:45)
[2019-02-14] MEDS ORDERED: HYDROcodone/Acetaminophen 5/325 mg Tablet ONE (13:52)
--- NOTE | 2019-02-14 14:34 | CT ---
CHEST CT WITHOUT CONTRAST: Date: 02/14/19 HISTORY: Shortness of breath. COMPARISON: None. FINDINGS: Limited evaluation of the mediastinum due to lack of IV contrast. No mediastinal mass, lymphadenopath y, or hematoma. Heart size is within normal limits. There is no pericardial fluid. There are coronary artery calcifications. Gallbladder surgically absent. Visualized solid organs are grossly unremarkable. There are patchy interstitial and ground-glass opacities with septal thickening throughout the lung p arenchyma. There is a focal alveolar infiltrate in the superior segment of the left lower lobe. There is consolidation of the left lower lobe with a small adjacent pleural fluid. There is consolidation with air bronchogram with a small adjacent pleural fluid in the right lower lobe. There is no pneumot horax. Trachea and central bronchi are patent. There is a right-sided PICC line with distal tip exten ding towards the internal jugular vein. There are no lytic or blastic lesions with regards to the osseous structures. However, there is loss of vertebral body height at T5, T6, and to a lesser extent at T11. There does appear to be abnormal p araspinal soft tissue attenuation. Findings are worrisome for pathologic fractures at these levels. M ultilevel vacuum disc phenomenon is identified. IMPRESSION: 1. Lung parenchymal opacification as detailed above, worrisome for multilobar pneumonia/infiltrate. 2. Presumed pathologic fractures involving the thoracic spine at T5, T6, and T11. Correlate clinical ly for osseous metastases. A second, though slightly less favored, consideration could be multifocal osteomyelitis. Results of study discussed with Dr. Grider on 02/14/19 at 1419 hours. CODE CR. POS: [facility]
--- NOTE | 2019-02-14 16:12 | PDOC.EVN ---
Event Note - Event Note Event Note: Ceftraroline will not cover staph for pneumonia. I will place her for now on zyvox and will await ID consultation.
[2019-02-14 16:49] LABS: Troponin I 0.016 ng/mL (< 0.028)
[2019-02-14] MEDS: Linezolid 600 MG in Premix Bag 1 BAG IVPB SCH (17:36)
[2019-02-14] MEDS ORDERED: Meropenem 1 GM in Sodium Chloride 0.9% 100 ML IVPB SCH (18:00)
[2019-02-14] MEDS: HYDROcodone/Acetaminophen 5/325 mg Tablet PO PRN (19:54)
[2019-02-14] MEDS: Metoprolol Tartrate 25 MG TAB PO SCH (19:55)
[2019-02-14] MEDS: Cyclobenzaprine 10 MG TAB PO PRN (20:24)
--- NOTE | 2019-02-14 21:13 | HP ---
CHIEF COMPLAINT: Shortness of breath. HISTORY OF PRESENT ILLNESS: The patient is a 63-year-old female with a past medical history of complicated UTI, she also has a history of lumbar spine abscess, and obesity who presents to the hospital with complaints of shortness of breath times 2-3 days. The patient stated that since she has been discharged from the hospital, which was recent, she has been having some shortness of breath, which has progressively gotten worse. She states that she has been having a very dry cough, however, no sputum production. She denies any fevers. She states that she gets chills only at night times when it is cold in the room. She denies any chest pain or chest pressure. She states that she has been drinking a lot of water recently. The patient has been on antibiotics with daptomycin and Teflaro for her lumbar spine infection, which is supposed to be continued until February. EMERGENCY DEPARTMENT COURSE: The patient was found to have leukocytosis and based on her shortness of breath, leukocytosis, and her chest x-ray finding, she was admitted for possible pneumonia. PAST MEDICAL HISTORY: 1. History of epidural abscesses due to MRSA. She has also had MRSA bacteremia .. 2. Hypertension. 3. GERD. 4. Morbid obesity. 5. Physical deconditioning. 6. Anemia. 7. History of alcohol use. 8. CKD stage 3. However, currently she has normal kidneys. PAST SURGICAL HISTORY: She has had a right great toe surgery and a PICC line placement. FAMILY HISTORY: No history of heart disease, cancers, or stroke. ALLERGIES: SHE IS ALLERGIC TO LEVAQUIN, PENICILLIN, AND MORPHINE. MEDICATIONS: 1. Amlodipine 10 mg daily. 2. She is on daptomycin and Teflaro. 3. Thiamine 100 mg daily. 4. Prednisone 20 mg daily. 5. Paxil 10 mg daily. 6. Protonix 40 mg daily. 7. Multivitamin 1 tab daily. 8. Levothyroxine 25 mcg daily. 9. Hydralazine 25 mg t.i.d. 10. Flexeril 10 mg t.i.d. p.r.n. 11. Metoprolol 25 mg twice a day. SOCIAL HISTORY: She is from a detention facility. No history of smoking history, but she does have history of alcohol use. No history of drug use. I did speak with her, she is a full code and if anything must happen to her, her sister is her POA. PHYSICAL EXAMINATION: VITAL SIGNS: In the ER, she was found to have a temperature of 98.1, respirations 24, pulse 96, and blood pressure 123/69. Prior to getting oxygen, she was found to have 86% on room air. GENERAL: She is awake, alert, and oriented x3. Does not appear in distress. She is a little short of breath while speaking complete sentences. CV: S1 and S2 present. No murmurs, rubs, or gallops. LUNGS: She has expiratory wheezing all over lungs. HEENT: Normocephalic, atraumatic. No lymphadenopathy noted. Pupils are equal and reactive to light. ABDOMEN: Obese. Bowel sounds are present x2. No pain upon palpation. EXTREMITIES: Lower extremity; no edema. Pedal pulses are present x2. NEUROVASCULAR: She has no focal deficits noted. SKIN: No cuts, lesions, or bruises noted. MUSCULOSKELETAL: I did check her back area. She states that she does have pain at times. However, no pain upon palpation of her spine or paraspinal area. LABORATORY RESULTS: WBCs of 19.6, hemoglobin of 9.3, hematocrit of 28.7, platelets of 147. Chemistry; sodium of 130, potassium of 3.7, BUN of 13, creatinine of 0.81. Her BNP is 201. Her troponin x2 were negative. Her LFTs are normal. Her urine is pending. Chest x-ray indicated bibasilar volume overload and also cannot rule out infiltrates. ASSESSMENT AND PLAN: The patient is a very pleasant 63-year-old female, who presents to the hospital with shortness of breath. 1. Acute hypoxic respiratory failure secondary to possible volume overload versus maybe some bronchitis versus pneumonia. The patient states that she does have a cough. Her chest x-ray upon my interpretation appears to be more volume overloaded. However, her echocardiogram that was done on the of this month indicated an EF of 60% to 65% with just mild mitral and mild tricuspid regurgitation. However, she did have a very dilated right ventricle and had a normal right ventricular systolic function. Her troponins are negative. Also, her BNP is just mildly elevated. She stated that her father used to smoke; however, she never smoked in her life. I will give her a breathing treatment. I will also give her some diuretics. She could most likely have some pulmonary edema. I will also get a CT chest. I do not believe this is pneumonia. The patient is on daptomycin and on Teflaro, not that she could not get a superimposed infection. However, her chest x-ray upon my interpretation, appears to be more volume overloaded. A CT scan will be for better assistance. I will check a procalcitonin level. I will, for now, continue her current antibiotics. I will consult Infectious Disease given her significant medical history of multiple infections. Also, she was given aztreonam in the ER. I will also check a urine for her. She recently had a V/Q scan that was done on the of this month and was negative for any kind of pulmonary embolism, it was a low probability. 2. History of lumbar spine abscesses and MRSA bacteremia. We will continue her Teflaro and daptomycin. I have consulted Infectious Disease. She is supposed to continue these antibiotics until February. 3. prophylaxis. We will put the patient on heparin, however, we will continue to monitor her platelet count. Her platelet counts this admission was much more a little bit less than her previous one on discharge about 9 days ago. Job ID: [id number]
[2019-02-15] MEDS: Temazepam 15 MG CAP PO PRN (00:42)
[2019-02-15] MEDS: HYDROcodone/Acetaminophen 5/325 mg Tablet PO PRN (01:51)
[2019-02-15] MEDS: MEROPENEM 1 GM/50 ML 1 GM in Premix Bag 1 BAG IVPB SCH ×3 (01:53→18:14)
[2019-02-15] MEDS: Cyclobenzaprine 10 MG TAB PO PRN (05:31)
[2019-02-15] MEDS: Levothyroxine Sodium 25 MCG TAB PO SCH (05:31)
[2019-02-15] MEDS: Linezolid 600 MG in Premix Bag 1 BAG IVPB SCH (05:31)
[2019-02-15 07:28] LABS: Anion Gap 11 mmol/L (10-20); BUN (Urea Nitrogen) 20 mg/dL (9.8-20.1); Calc. Creatinine Clearance 96 mL/min (70-130); Calcium 8.4 mg/dL (7.8-10.44); Carbon Dioxide 28 mmol/L (23-31); Chloride 91 mmol/L (98-107); Estimated GFR-MDRD 53; Glucose 90 mg/dL (80-115); Potassium 4.7 mmol/L (3.5-5.1); Sodium 125 mmol/L (136-145)
[2019-02-15 07:44] LABS: Hemoglobin 9.3 g/dL (12.0-16.0); Mean Corpuscular HGB CONC 32.1 g/dL (32.0-36.0); Mean Corpuscular Hemoglobin 29.2 pg (27.0-31.0); Mean Corpuscular Volume 90.9 fL (78.0-98.0); Mean Platelet Volume 7.9 fL (7.4-10.4); Platelet Count 100 thou/uL (130-400); RBC Distribution Width 15.5 % (11.5-14.5); Red Blood Cell (RBC) Count 3.17 mill/uL (4.20-5.40); White Blood Cell (WBC) Count 15.2 thou/uL (4.8-10.8)
[2019-02-15] MEDS ORDERED: Fentanyl 100 MCG/2 ML VIAL SLOW IVP SCH (08:15)
[2019-02-15] MEDS ORDERED: predniSONE 20 MG TAB PO SCH (09:00)
[2019-02-15] MEDS ORDERED: methylPREDNISolone Sod Succ 40 MG VIAL IVP SCH ×2 (09:00)
[2019-02-15 09:53] LABS: Calcium, Ionized 1.13 mmol/L (1.12-1.30); Carboxyhemoglobin (COHb) 1.3 gm% (0.0-3.0); Hemoglobin (Hb) 9.4 g/dL (12.0-16.0); O2 Tension (PaO2) 76.8 mmHg (> 80.0); Potassium - ABG Lab 4.83 mmol/L (3.70-5.30); pH, Arterial 7.26 (7.35-7.45)
[2019-02-15 09:56] LABS: CO2 Tension 66.4 mmHg (35.0-45.0)
[2019-02-15 09:57] LABS: Puncture Site LR
[2019-02-15 09:58] LABS: #Basophils 0.1 thou/uL (0.0-0.2); #Eosinphils 1.1 thou/uL (0.0-0.7); #Lymphocytes 1.7 thou/uL (1.20-3.40); #Monocytes 1.2 thou/uL (0.11-0.59); #Neutrophils 11.2 thou/uL (1.40-6.50); %Basophils 0.4 % (0.0-1.0); %Eosinophils 7.4 % (0.0-10.0); %Lymphocytes 11.1 % (21.0-51.0); %Monocytes 7.7 % (0.0-10.0); %Neutrophils 73.4 % (42.0-75.0); Burr Cells SLIGHT = 2-5 cells (100X) (0-1/hpf); Hypochromia SLIGHT = 6-15 cells (100X) (0-5/hpf); MDiff Complete? YES; Platelet Morphology Comment Appears Adequate
[2019-02-15] MEDS ORDERED: Sodium Chloride 0.9% 1,000 ML IV SCH (10:30)
[2019-02-15] MEDS ORDERED: Sodium Chloride 0.9% 250 ML IV SCH (10:30)
[2019-02-15] MEDS: Folic Acid 1 MG TAB PO SCH (11:55)
[2019-02-15] MEDS: Metoprolol Tartrate 25 MG TAB PO SCH (11:55)
[2019-02-15] MEDS: Saccharomyces boulardii 250 MG CAP PO SCH (11:56)
[2019-02-15] MEDS: Thiamine 100 MG TAB PO SCH (11:56)
[2019-02-15] MEDS: PARoxetine 20 MG TAB PO SCH (11:56)
--- NOTE | 2019-02-15 13:00 | PDOC.PN ---
- Subjective Encounter Start Date: 02/15/19 Encounter Start Time: 10:15 Subjective: pt up in bed appear ill and tachypenic - Objective Resuscitation Status - Order Detail: 02/14/19 10:02 Resuscitation Status Routine Resuscitation Status: FULL: Full Resuscitation Vital Signs & Weight: Vital Signs (12 hours) Temp Pulse Resp BP Pulse Ox 02/15/19 11:21 91 02/15/19 08:00 97.7 F 84 28 H 116/57 L 93 L 02/15/19 07:47 88 22 H 98 02/15/19 06:43 90 L 02/15/19 06:39 87 22 H 89 L 02/15/19 03:44 98.0 F 79 22 H 125/58 L 93 L 02/15/19 02:36 69 20 96 Weight Weight 244 lb 12.8 oz I&O: 02/14/19 02/15/19 02/16/19 06:59 06:59 06:59 Intake Total 710 Output Total 200 Balance 510 Result Diagrams: 02/15/19 06:53 02/15/19 06:53 Phys Exam - Physical Examination lethargic easily arousable Neck: no nodes, no JVD, supple, full ROM Respiratory: wheezing present Gastrointestinal: soft, non-tender, no distention, positive bowel sounds Musculoskeletal: no edema, pulses present, edema present Dx/Plan (1) Acute respiratory failure Code(s): J96.00 - ACUTE RESPIRATORY FAILURE, UNSP W HYPOXIA OR HYPERCAPNIA Status: Acute Qualifiers: (2) Pneumonia Code(s): J18.9 - PNEUMONIA, UNSPECIFIED ORGANISM Status: Acute (3) Chronic kidney disease (CKD) Code(s): N18.9 - CHRONIC KIDNEY DISEASE, UNSPECIFIED Status: Acute Qualifiers: Comment: stable (4) Epidural abscess Code(s): G06.2 - EXTRADURAL AND SUBDURAL ABSCESS, UNSPECIFIED Status: Acute (5) Hyponatremia Code(s): E87.1 - HYPO-OSMOLALITY AND HYPONATREMIA Status: Acute Comment: Sodium improved to 131 - Plan pt appear ill, elevated co2 will put pt on bipap and transfer -: to icu. will add steroids and duoneb. continue abx, will await ID consult -: spoke with sister and updated her. * . Review of Systems - Review of Systems Respiratory: negative: Cough, Dry, Shortness of Breath, Hemoptysis, SOB with Excertion, Pleuritic Pain, Sputum, Wheezing Cardiovascular: negative: chest pain, palpitations, orthopnea, paroxysmal nocturnal dyspnea, edema, light headedness, other Gastrointestinal: negative: Nausea, Vomiting, Abdominal Pain, Diarrhea, Constipation, Melena, Hematochezia, Other - Medications/Allergies Allergies/Adverse Reactions: Allergies Allergy/AdvReac Type Severity Reaction Status Date / Time levofloxacin [[facility]] Allergy Verified 02/14/19 16:37 morphine Allergy Verified 02/14/19 16:37 Penicillins Allergy Verified 02/14/19 16:37 Medications: Current Medications Acetaminophen (Tylenol) 650 mg PO Q4H PRN PRN Reason: Headache/Fever/Mild Pain (1-3) Hydrocodone Bitart/Acetaminophen ([place] 5/325) 1 tab PO Q6H PRN PRN Reason: Moderate Pain (4-6) Last Admin: 02/15/19 01:51 Dose: 1 tab Albuterol/Ipratropium (Duoneb) 3 ml NEB [id number] [facility] Last Admin: 02/15/19 07:47 Dose: 3 ml Cyclobenzaprine HCl (Flexeril) 10 mg PO TIDPRN PRN PRN Reason: Muscle Spasm Last Admin: 02/15/19 05:31 Dose: 10 mg Folic Acid (Folvite) 1 mg PO DAILY [facility] Last Admin: 02/15/19 11:55 Dose: Not Given Linezolid 600 mg/ Device 300 mls @ 150 mls/hr IVPB 0500,1700 [facility] Last Admin: 02/15/19 05:31 Dose: 300 mls Meropenem 1 gm/ Device 50 mls @ 100 mls/hr IVPB 0200,1000,1800 [facility] Last Admin: 02/15/19 09:22 Dose: 50 mls Sodium Chloride (Normal Saline 0.9%) 250 mls @ 50 mls/hr IV .Q5H [facility] Stop: 02/15/19 14:00 Last Admin: 02/15/19 11:58 Dose: 250 mls Levothyroxine Sodium (Synthroid) 25 mcg PO 0600 [facility] Last Admin: 02/15/19 05:31 Dose: 25 mcg Methylprednisolone Sodium Succinate (Solu-Medrol) 20 mg IVP BID [facility] Metoprolol Tartrate (Lopressor) 25 mg PO BID [facility] Last Admin: 02/15/19 11:55 Dose: Not Given Pantoprazole Sodium (Protonix) 40 mg IVP DAILY [facility] Paroxetine HCl (Paxil) 10 mg PO DAILY [facility] Last Admin: 02/15/19 11:56 Dose: Not Given Saccharomyces Boulardii (Florastor) 250 mg PO DAILY [facility] Last Admin: 02/15/19 11:56 Dose: Not Given Sodium Chloride (Flush - Normal Saline) 10 ml IVF Q12HR [facility] Last Admin: 02/15/19 09:22 Dose: 10 ml Sodium Chloride (Flush - Normal Saline) 10 ml IVF PRN PRN PRN Reason: Saline Flush Last Admin: 02/15/19 05:32 Dose: 10 ml Temazepam (Restoril) 15 mg PO HSPRN PRN PRN Reason: Insomnia Last Admin: 02/15/19 00:42 Dose: 15 mg Thiamine HCl (Thiamine) 100 mg PO DAILY [facility] Last Admin: 02/15/19 11:56 Dose: Not Given
[2019-02-15] MEDS ORDERED: Fentanyl 100 MCG/2 ML VIAL SLOW IVP PRN (13:10)
--- NOTE | 2019-02-15 13:17 | CON ---
DATE OF CONSULTATION: HISTORY OF PRESENT ILLNESS: Asuncion Leslie is an elderly female at 63, morbidly obese, who was recently discharged from the hospital with sepsis syndrome and osteomyelitis when she presented with respiratory failure. X-ray shows now new bilateral pulmonary infiltrates, which were not present on a previous x-ray. She was on a monitor bed when she became more progressively lethargic, retarded, obtunded, unresponsive, back to the ICU on noninvasive ventilation. She has a PICC line in place. She has MRSA in the spine, for which she is receiving long-term antibiotics as per Infectious Disease. In the ICU, she is pretty much moaning and groaning, though vital signs have stabilized and oxygenation has improved. PAST MEDICAL HISTORY: Extensive previous history is outlined from previous records and includes: 1. Osteomyelitis of the spine. 2. Morbid obesity. 3. Hypertension. 4. Hyperlipidemia. 5. Hypothyroidism. 6. Depression. 7. Encephalopathy. FAMILY HISTORY: Her sister works in the [place]. SOCIAL HISTORY: She is a DNR as per her wishes in the past. MEDICATIONS: Her home medicines had included: 1. Prednisone 20. 2. Hydralazine 25 three times a day. 3. Temazepam. 4. Protonix. 5. Synthroid 25. She is now on: 1. Zyvox. 2. Meropenem. ALLERGIES: SHE IS ALLERGIC TO: 1. PENICILLIN. 2. LEVAQUIN. REVIEW OF SYSTEMS: Difficult to get any review of systems. PHYSICAL EXAMINATION: VITAL SIGNS: Saturations are 93% on 3 L, respiratory rate 18, temperature 97, blood pressure 116/57. CHEST: Bilateral rhonchi and crackles. CARDIAC: Sinus tachycardia. ABDOMEN: Soft. LABORATORY DATA: A pO2 was 76, pCO2 was 66, pH was 7.26 on 3 L nasal O2. White count 15,000, H and H 9 and 33. She has a platelet count of 100,000. Lytes are normal. Sodium 125. IMPRESSION: 1. Aspiration pneumonia, bilateral. 2. Respiratory failure. 3. Staphylococcal osteomyelitis. 4. Morbid obesity. 5. Severe deconditioning. PLAN: Increase her steroids. Continue neb treatments. Continue noninvasive ventilation. Sister is her power of divorce attorney. The patient, I think, is a DNR. We will discuss with her. TIME SPENT: One-half hour Critical Care time. Job ID: [id number]
[2019-02-15] MEDS ORDERED: Vancomycin HCl 1.5 GM in Sodium Chloride 0.9% 250 ML 300 ML IVPB SCH (15:30)
[2019-02-15] MEDS ORDERED: Vancomycin HCl 1.75 GM in Sodium Chloride 0.9% 500 ML IVPB SCH (16:00)
[2019-02-15] MEDS: methylPREDNISolone Sod Succ 40 MG VIAL IVP SCH (20:09)
--- NOTE | 2019-02-15 22:14 | CON ---
DATE OF CONSULTATION: 02/15/2019 REASON FOR CONSULTATION: Readmission with altered mental status, bilateral pulmonary infiltrates. HISTORY OF PRESENT ILLNESS: A 63-year-old patient, who has a quite refractory infection secondary to MRSA in the lower back and then the thoracic spine area. She had failed a protracted vancomycin treatment and had been switched to daptomycin and ceftaroline and since then, she continues to deteriorate with recurrent admissions and seems to have inability to get up from bed because of pain in thoracic spine area. Dr. Alvarado had assessed the patient and felt that she was not a surgical candidate. She now is back in the hospital after recurrence of the delirium and now bilateral pulmonary infiltrates. She is in the ICU and I believe the family members have decided against any further aggressive measures such as intubation or resuscitation. Ms. Leslie opens her eyes. She is unable to answer questions at this time. According to the nurse, she did not complain of any headaches, but she had intractable pain in the mid thoracic spine area and then she developed tachypnea and evidence of dyspnea. Did not have any diarrhea and was incontinent. No seizure activity. PAST MEDICAL HISTORY: Alcoholism; hypertension; esophageal stricture; intertriginous eruption in the groin area; malnutrition; recurrent falls; diskitis, lumbosacral spine area secondary to MRSA with improvement and then suppressive minocycline, then recurrence of infection at this time in the thoracic spine as the most likely source with bacteremia again. PAST SURGICAL HISTORY: Cholecystectomy, EGD, and tonsillectomy. SOCIAL HISTORY: Had been living alone, but then transferred to [facility]. Used to work in [employer]. Has a history of alcoholism. Never smoker. FAMILY HISTORY: CVA. ALLERGY HISTORY: Levofloxacin, morphine, and penicillin with rash. MEDICATIONS: Current medication list: 1. Tylenol. 2. [place]. 3. DuoNeb. 4. Folvite. 5. Meropenem. 6. Solu-Medrol. 7. Vancomycin. PHYSICAL EXAMINATION: VITAL SIGNS: T-max 98.8, blood pressure 140/70, pulse 83, respirations 17, O2 saturation 96. SKIN: With areas of intertriginous maceration and stage II ulcerations, which are quite small in the back area. She has a tiny little pressure areas in the left heel region and the right heel region. They are not of major concern at this point in time. She has a right-sided PICC line in place. HEENT: The ocular movements are conjugate. She has absence of eyelids. Pale conjunctivae. Oral cavity is somewhat dry. LUNGS: Symmetric air entry with faint basilar crackles. HEART: S1 and S2. Diminished heart sounds. No obvious murmurs. Marked tenderness on mobilization of her chest due to the thoracic spine region process. ABDOMEN: No abdominal pain. No distention. : Question of bladder distention. MUSCULOSKELETAL: No joint inflammatory activity. EXTREMITIES: She is able to move extremities. NEUROLOGIC: She is awake, recognized me, but has a hard time with speech. Will follow some commands. LABORATORY DATA: White cell count is 19.6 and 15.2, hemoglobin 9.3, platelets 147 and now 100. PH of 7.26, pCO2 of 66. Sodium 125, creatinine 1.05. Liver profile normal. Albumin 3.3. Microbiology with pending sets of blood cultures. Previous ones from January 28 were negative at 5 days. The patient had a CT of chest this admission, which demonstrated parenchymal opacification in the lower right and left lungs and pathologic fractures, thoracic spine, T5-6 and T11. Echocardiogram from 2 weeks ago with EF 65%. No obvious vegetation. Ms. Leslie had an MRI of thoracic spine on 01/13/2019 at [facility], which showed wedge compression abnormalities of thoracic spine. This was a noncontrast study, so probably this reflected the infection, which has progressed according to the CT scan. ASSESSMENT: 1. History of alcoholism. 2. Methicillin-resistant Staphylococcus aureus infection of lumbosacral spine with bacteremia, treated last year with improvement. Apparent resolution of the process, but now recrudescence of bacteremia with at this time thoracic spine involvement, T8 through T9 with progression despite aggressive antimicrobial therapy with two alternate regimens. The patient has been evaluated by Neurosurgery and not felt to be a candidate for surgical intervention, and the reason for this admission is because she is unable to cough because of pain associated with thoracic spine process and has remained in bed and has developed pneumonia, probably from aspiration. I agree with meropenem and vancomycin. The prognosis is poor and the family has decided against intubation or resuscitation. Job ID: [id number]
[2019-02-15 22:18] LABS: #Lymphocytes 0.6 thou/uL (1.20-3.40); #Monocytes 0.1 thou/uL (0.11-0.59); %Basophils 0.2 % (0.0-1.0); %Eosinophils 0.1 % (0.0-10.0); %Lymphocytes 9.5 % (21.0-51.0); %Monocytes 1.9 % (0.0-10.0); %Neutrophils 88.3 % (42.0-75.0); Hemoglobin 8.7 g/dL (12.0-16.0); Mean Corpuscular HGB CONC 32.8 g/dL (32.0-36.0); Mean Corpuscular Hemoglobin 29.7 pg (27.0-31.0); Mean Corpuscular Volume 90.7 fL (78.0-98.0); Mean Platelet Volume 8.4 fL (7.4-10.4); Platelet Count 94 thou/uL (130-400); Red Blood Cell (RBC) Count 2.94 mill/uL (4.20-5.40); White Blood Cell (WBC) Count 6.8 thou/uL (4.8-10.8)
[2019-02-15 22:19] LABS: Bilirubin Negative (Negative); Blood, Urine Negative (Negative); Clarity CLEAR (Clear); Glucose, Urine (Dipstick) Negative (Negative); Leukocyte Negative (Negative); Nitrite Negative (Negative); Protein, Urine (Dipstick) 30 mg/dL (Neg-Trace); Urobilinogen 0.2 mg/dL (0.2-1.0)
[2019-02-15 22:21] LABS: Bacteria/HPF None Seen HPF (None Seen); Hyaline Casts/LPF 0-3 HYALINE CAST LPF (0-3 Hyaline); Pathc Cast-AUWi Flag 0.13 (0-2.49); RBC/HPF 0-3 HPF (0-3); Squamous Epithelial None Seen HPF (0-3); WBC/HPF 0-3 HPF (0-3)
[2019-02-15 22:24] LABS: Urine Culture Reflex No No
[2019-02-15 22:33] LABS: Anion Gap 13 mmol/L (10-20); BUN (Urea Nitrogen) 19 mg/dL (9.8-20.1); Calc. Creatinine Clearance 110 mL/min (70-130); Carbon Dioxide 26 mmol/L (23-31); Chloride 94 mmol/L (98-107); Estimated GFR-MDRD 62; Glucose 99 mg/dL (80-115); Potassium 5.3 mmol/L (3.5-5.1); Sodium 128 mmol/L (136-145)
[2019-02-15 22:36] LABS: Phosphorus 3.8 mg/dL (2.3-4.7)
[2019-02-16] MEDS: MEROPENEM 1 GM/50 ML 1 GM in Premix Bag 1 BAG IVPB SCH ×3 (02:00→20:28)
[2019-02-16 04:50] LABS: Phosphorus 3.8 mg/dL (2.3-4.7)
[2019-02-16] MEDS: Levothyroxine Sodium 25 MCG TAB PO SCH (06:00)
[2019-02-16] MEDS: HYDROcodone/Acetaminophen 5/325 mg Tablet PO PRN (08:32)
--- NOTE | 2019-02-16 08:42 | PRG ---
DATE OF SERVICE: 02/16/2019 SUBJECTIVE: This morning, she is off the BiPAP. More responsive. OBJECTIVE: VITAL SIGNS: Saturations are 99% on supplemental oxygen, respirations 25, pulse 100, and blood pressure 157/91. GENERAL: She is complaining of severe pain. CHEST: Decreased breath sounds. No wheezing. CARDIAC: Normal S1 and S2. No gallops. ABDOMEN: No masses. LABORATORY DATA: White count 6000, H and H of 9 and 26. Sodium 128. IMPRESSION: 1. Bilateral bronchopneumonia, probably aspiration. 2. Osteomyelitis, chronic pain. PLAN: Vancomycin and meropenem as per Infectious Disease, steroids, neb treatment, supportive care. Pain relief. Job ID: [id number]
[2019-02-16] MEDS: Pantoprazole 40 MG VIAL IVP SCH (08:44)
[2019-02-16] MEDS: methylPREDNISolone Sod Succ 40 MG VIAL IVP SCH ×2 (08:44→20:34)
[2019-02-16] MEDS: Saccharomyces boulardii 250 MG CAP PO SCH (10:51)
[2019-02-16] MEDS: Folic Acid 1 MG TAB PO SCH (10:52)
[2019-02-16] MEDS: Thiamine 100 MG TAB PO SCH (10:52)
--- NOTE | 2019-02-16 11:00 | RAD ---
CHEST 1 VIEW: Date: 02/16/19 HISTORY: Pneumonia. COMPARISON: Radiograph dated 02/14/19. FINDINGS: A PICC is in place with tip projecting likely over the right internal jugular vein, although not comp letely evaluated on this exam. Moderate edema. Small effusions. Heart size is enlarged. IMPRESSION: 1. Worsening pulmonary edema. 2. Moderate cardiomegaly. 3. Enlarging left effusion. 4. Right PICC tip not completely evaluated on this exam, although projecting over the neck, likely i n the right internal jugular vein. POS: [facility]
[2019-02-16] MEDS ORDERED: Sodium Chloride 0.9% 1,000 ML IV SCH (12:00)
[2019-02-16] MEDS: HYDROcodone/Acetaminophen 10/325 mg Tablet PO PRN ×2 (12:03→16:02)
--- NOTE | 2019-02-16 13:49 | PDOC.EVN ---
Event Note - Event Note Event Note: spoke with pt's sister luis enrique about pt's worsening condition. spent about 20min explaining quality of life and outcome if she needed to be intubated. Pt's sister stated she did not want pt to be resuscitation. will make pt DNAR, luis enrique who is the POA has agreeded
--- NOTE | 2019-02-16 13:51 | PDOC.PN ---
- Subjective Encounter Start Date: 02/16/19 Encounter Start Time: 10:30 Subjective: pt up in bed off bipap and more awake - Objective Resuscitation Status - Order Detail: 02/15/19 15:28 Resuscitation Status Routine Resuscitation Status: DNAR: NO Resuscitation Discussed with: spoke with her sister Vital Signs & Weight: Vital Signs (12 hours) Temp Pulse Resp Pulse Ox 02/16/19 12:00 98.4 F 95 02/16/19 11:40 99 02/16/19 11:37 105 H 20 99 02/16/19 08:08 98 02/16/19 08:05 100 25 H 99 02/16/19 08:00 98.3 F 02/16/19 07:47 99 02/16/19 04:00 98.4 F 02/16/19 02:09 85 02/16/19 02:07 85 Weight Admit Weight 240 lb 14.4 oz Weight 255 lb 11.779 oz Most Recent Monitor Data Heart Rate from ECG 110 NIBP 155/57 NIBP BP-Mean 89 Respiration from ECG 23 SpO2 91 I&O: 02/15/19 02/16/19 02/17/19 06:59 06:59 06:59 Intake Total 710 800 260 Output Total 200 750 150 Balance 510 50 110 Result Diagrams: 02/15/19 21:37 02/15/19 21:37 Phys Exam - Physical Examination Neck: no nodes, no JVD, supple, full ROM mild crackles to bases Cardiovascular: RRR, no significant murmur, no rub, gallop, irregular Gastrointestinal: soft, non-tender, no distention, positive bowel sounds Dx/Plan (1) Acute respiratory failure Code(s): J96.00 - ACUTE RESPIRATORY FAILURE, UNSP W HYPOXIA OR HYPERCAPNIA Status: Acute Qualifiers: (2) Pneumonia Code(s): J18.9 - PNEUMONIA, UNSPECIFIED ORGANISM Status: Acute (3) Chronic kidney disease (CKD) Code(s): N18.9 - CHRONIC KIDNEY DISEASE, UNSPECIFIED Status: Acute Qualifiers: Comment: stable (4) Epidural abscess Code(s): G06.2 - EXTRADURAL AND SUBDURAL ABSCESS, UNSPECIFIED Status: Acute (5) Hyponatremia Code(s): E87.1 - HYPO-OSMOLALITY AND HYPONATREMIA Status: Acute Comment: Sodium improved to 131 - Plan pt is improving clinically but still is very ill. -: will give one dose of lasix. speech to evaluate pt -: will continue meropenem and vanco. * . Review of Systems - Review of Systems Respiratory: negative: Cough, Dry, Shortness of Breath, Hemoptysis, SOB with Excertion, Pleuritic Pain, Sputum, Wheezing Cardiovascular: negative: chest pain, palpitations, orthopnea, paroxysmal nocturnal dyspnea, edema, light headedness, other Musculoskeletal: Back Pain - Medications/Allergies Allergies/Adverse Reactions: Allergies Allergy/AdvReac Type Severity Reaction Status Date / Time levofloxacin [From Levaquin] Allergy Verified 02/14/19 16:37 morphine Allergy Verified 02/14/19 16:37 Penicillins Allergy Verified 02/14/19 16:37 Medications: Current Medications Acetaminophen (Tylenol) 650 mg PO Q4H PRN PRN Reason: Headache/Fever/Mild Pain (1-3) Hydrocodone Bitart/Acetaminophen ([place] 5/325) 1 tab PO Q6H PRN PRN Reason: Moderate Pain (4-6) Last Admin: 02/16/19 08:32 Dose: 1 tab Hydrocodone Bitart/Acetaminophen ([place] 10/325) 1 tab PO Q4H PRN PRN Reason: Moderate to Severe Pain (6-10) Last Admin: 02/16/19 12:03 Dose: 1 tab Albuterol/Ipratropium (Duoneb) 3 ml NEB [id number] [facility] Last Admin: 02/16/19 11:37 Dose: 3 ml Folic Acid (Folvite) 1 mg PO DAILY [facility] Last Admin: 02/16/19 10:52 Dose: 1 mg Furosemide (Lasix) 40 mg SLOW IVP NOW [facility] Stop: 02/16/19 16:00 Meropenem 1 gm/ Device 50 mls @ 100 mls/hr IVPB 0200,1000,1800 [facility] Last Admin: 02/16/19 10:30 Dose: 50 mls Vancomycin HCl 1.25 gm/ Sodium (Chloride) 250 mls @ 166.667 mls/hr IVPB 1600 [facility] Sodium Chloride (Normal Saline 0.9%) 1,000 mls @ 50 mls/hr IV INF [facility] Levothyroxine Sodium (Synthroid) 25 mcg PO 0600 [facility] Last Admin: 02/16/19 06:00 Dose: Not Given Methylprednisolone Sodium Succinate (Solu-Medrol) 20 mg IVP BID [facility] Last Admin: 02/16/19 08:44 Dose: 20 mg Metoprolol Tartrate (Lopressor) 25 mg PO BID [facility] Last Admin: 02/15/19 11:55 Dose: Not Given Miscellaneous Medication (Pharmacy To Dose) 1 each IVPB PRN PRN PRN Reason: Pharmacy to dose Pantoprazole Sodium (Protonix) 40 mg IVP DAILY [facility] Last Admin: 02/16/19 08:44 Dose: 40 mg Paroxetine HCl (Paxil) 10 mg PO DAILY [facility] Last Admin: 02/15/19 11:56 Dose: Not Given Saccharomyces Boulardii (Florastor) 250 mg PO DAILY [facility] Last Admin: 02/16/19 10:51 Dose: 250 mg Sodium Chloride (Flush - Normal Saline) 10 ml IVF Q12HR [facility] Last Admin: 02/16/19 09:00 Dose: 10 ml Sodium Chloride (Flush - Normal Saline) 10 ml IVF PRN PRN PRN Reason: Saline Flush Last Admin: 02/15/19 20:09 Dose: 10 ml Temazepam (Restoril) 15 mg PO HSPRN PRN PRN Reason: Insomnia Last Admin: 02/15/19 00:42 Dose: 15 mg Thiamine HCl (Thiamine) 100 mg PO DAILY [facility] Last Admin: 02/16/19 10:52 Dose: 100 mg
[2019-02-16] MEDS ORDERED: Furosemide 40 MG/4 ML VIAL SLOW IVP SCH (14:00)
--- NOTE | 2019-02-16 14:35 | PDOC.PALCO ---
Palliative Care Consult - Consult Details Requesting Physician: Dr Alvarez Reason for Consult: goals of care Family Members Present: Brother crystal and [id number] - Pertinent HPI 63 year old female recentely admitted secondary to altered mental status from a skilled facility where she was having rehab. Patient fell Mar and has had subsequent decline over the past year. Patient with Lumbarspine abscess, pnumonia, UTI. Was on Bipap and is tolerating O2 via NC today. - Pertinent PMH CKD, Hypertension, morbid obesity, physical deconditioning, anemia related to chronic renal disease, epidural abscess, hyponatremia, - Social History Smoking Status: Never smoker Smoking: no tobacco exposure Alcohol Use: occasional Drug Use History: none Living Situation: senior care resident - Medications MAR Reviewed: Yes - Allergies Allergies/Adverse Reactions: Allergies Allergy/AdvReac Type Severity Reaction Status Date / Time levofloxacin [From Levaquin] Allergy Verified 02/14/19 16:37 morphine Allergy Verified 02/14/19 16:37 Penicillins Allergy Verified 02/14/19 16:37 - Subjective Patient with family at bedside. Chronically ill appearing, O2 in place, goins cath. Mildly labored respirations, tachypnea. Mild confusion specifically with memory recall. Denies pain, other than at specific lumbar infection site, with no movement, however with any movement patient states pain is excruciating. - Objective Vital Signs: Vital Signs - Most Recent Temp Pulse Resp BP Pulse Ox 98.4 F 105 H 20 116/57 L 95 02/16/19 12:00 02/16/19 11:37 02/16/19 11:37 02/15/19 08:00 02/16/19 12:00 Palliative Performance Scale: 30 - Advance Directives Medical Power of Tie Knitter Helper: Sister - Physical Exam Constitutional: confusion HEENT: moist MMs, EOMI Respiratory: tachypnea Deviation from normal: wet non productive cough Cardiovascular: RRR Gastrointestinal: soft, non-tender Musculoskeletal: pulses present Psychiatric: normal affect Deviation from normal: Pallor, delayed cap refill to lower extremities. Brusing upper extremities - Problem List (1) Palliative care encounter Code(s): Z51.5 - ENCOUNTER FOR PALLIATIVE CARE Current Visit: Yes Status: Acute Comments: Discussed with patient MPOA, began conversation in relation to patients expectations. - Plan/Recommendations Plan: *Education in relation to pneumonia *Education in relation to cormobidities *Patient expressed desire to return to rehab facility *Edith HYLTON RN to reach out to facility for MPOA *Patient DNR/will initiate conversation in relation to patient desires when out of hospital [75] minutes spent on this encounter with >50% of the time in counseling and coordination of care. Thank you for this very appropriate consult.
[2019-02-16] MEDS ORDERED: Sterile Water 10 ML VIAL IVP SCH (15:59)
[2019-02-16] MEDS ORDERED: Activase 2 MG VIAL CATH SCH (15:59)
[2019-02-16] MEDS: Vancomycin HCl 1.25 GM in Sodium Chloride 0.9% 250 ML 250 ML IVPB SCH (16:55)
[2019-02-16] MEDS ORDERED: hydrALAZINE 20 MG/ML VIAL SLOW IVP PRN (20:18)
--- NOTE | 2019-02-16 20:18 | PRG ---
DATE OF SERVICE: 02/16/2019 SUBJECTIVE: Ms. Leslie is much more alert. She has normal mental state. She has still that quite intense pain in the midthoracic spine, which hinders movement and coughing and deep breathing. No abdominal pain. She is incontinent. I's and O's have been slightly positive. Appears much better. OBJECTIVE: GENERAL: She is much more alert. HEENT: Ocular movements conjugate. LUNGS: Symmetric air entry. HEART: S1 and S2. Regular rate. ABDOMEN: Soft, not distended. LABORATORY DATA: White cell count is down to 6.8, hemoglobin 8.7, platelets 94,000 with 88% neutrophils. Sodium 128, creatinine 0.92. Microbiology with 2 sets of blood cultures no growth thus far. ASSESSMENT AND DISCUSSION: History of alcoholism; methicillin-resistant Staphylococcus aureus infection, lumbosacral spine; and bacteremia. Initially treated with improvements. She became functionally much better as she was able to come to clinic visits and then she developed recrudescence of the infection with bacteremia and at this time involvement of thoracic spine. The thoracic spine involvement has really represented a major setback for her, particularly because of the instability of the area and marked pain associated with it. Various antimicrobial regimens have not lead to resolution of the process yet. May consider reconsulting Neurosurgery to see if they would give us any other options. For the time being, continue meropenem and vancomycin. Job ID: [id number]
[2019-02-16] MEDS: Metoprolol Tartrate 25 MG TAB PO SCH (20:33)
[2019-02-16] MEDS: Temazepam 15 MG CAP PO PRN (23:40)
[2019-02-17] MEDS: MEROPENEM 1 GM/50 ML 1 GM in Premix Bag 1 BAG IVPB SCH ×3 (02:09→19:29)
[2019-02-17] MEDS: Levothyroxine Sodium 25 MCG TAB PO SCH (05:58)
[2019-02-17] MEDS: HYDROcodone/Acetaminophen 10/325 mg Tablet PO PRN ×3 (06:21→20:48)
--- NOTE | 2019-02-17 08:12 | RAD ---
XR Chest 1 View Portable History: Difficulty breathing Comparison: Radiograph prior day Findings: Heart size is enlarged. Layering left effusion is similar. Small right effusion. Mild impro molly aeration of the upper lobes. PICC tip continues to not be seen extending along the right neck. Impression: Mild improved aeration of the upper lobes.
--- NOTE | 2019-02-17 09:09 | PRG ---
DATE OF SERVICE: 02/17/2019 SUBJECTIVE: Asuncion Leslie, this morning, is much improved. No longer encephalopathic. OBJECTIVE: VITAL SIGNS: Saturations are 96% on 3 L, temperature 97, blood pressure 130/80, and respirations 18. CHEST: Minimal crackles. CARDIAC: Normal S1 and S2. No gallops. ABDOMEN: No masses. IMPRESSION: 1. Resolving aspiration pneumonia. 2. Respiratory failure. 3. Encephalopathy. PLAN: Pulmonary-elena, switch over to oral antibiotics. PT, supportive care. Anti-Staph coverage as per Infectious Disease. Job ID: [id number]
[2019-02-17] MEDS ORDERED: Furosemide 40 MG/4 ML VIAL SLOW IVP SCH (09:30)
[2019-02-17] MEDS: Metoprolol Tartrate 25 MG TAB PO SCH ×2 (09:57→20:48)
[2019-02-17] MEDS: Thiamine 100 MG TAB PO SCH (09:58)
[2019-02-17] MEDS: Pantoprazole 40 MG VIAL IVP SCH (09:58)
[2019-02-17] MEDS: methylPREDNISolone Sod Succ 40 MG VIAL IVP SCH ×2 (09:58→20:41)
[2019-02-17] MEDS: Folic Acid 1 MG TAB PO SCH (09:58)
[2019-02-17] MEDS: Saccharomyces boulardii 250 MG CAP PO SCH (10:00)
[2019-02-17 10:05] LABS: #Monocytes 1.1 thou/uL (0.11-0.59); #Neutrophils 10.9 thou/uL (1.40-6.50); %Basophils 0.2 % (0.0-1.0); %Eosinophils 0.1 % (0.0-10.0); %Lymphocytes 7.6 % (21.0-51.0); %Monocytes 8.7 % (0.0-10.0); %Neutrophils 83.4 % (42.0-75.0); Hemoglobin 8.5 g/dL (12.0-16.0); Mean Corpuscular HGB CONC 32.4 g/dL (32.0-36.0); Mean Corpuscular Hemoglobin 29.3 pg (27.0-31.0); Mean Corpuscular Volume 90.4 fL (78.0-98.0); Mean Platelet Volume 7.3 fL (7.4-10.4); Platelet Count 176 thou/uL (130-400); RBC Distribution Width 15.4 % (11.5-14.5); Red Blood Cell (RBC) Count 2.89 mill/uL (4.20-5.40); White Blood Cell (WBC) Count 13.1 thou/uL (4.8-10.8)
[2019-02-17 10:18] LABS: ALT (SGPT) 10 U/L (8-55); AST (SGOT) 15 U/L (5-34); Albumin 3.4 g/dL (3.4-4.8); Alkaline Phosphatase 100 U/L (40-150); Anion Gap 14 mmol/L (10-20); BUN (Urea Nitrogen) 18 mg/dL (9.8-20.1); Bilirubin, Total 0.4 mg/dL (0.2-1.2); Calc. Creatinine Clearance 101 mL/min (70-130); Calcium 9.5 mg/dL (7.8-10.44); Carbon Dioxide 28 mmol/L (23-31); Chloride 95 mmol/L (98-107); Estimated GFR-MDRD 53; Globulin 3.3 g/dL (2.4-3.5); Glucose 103 mg/dL (80-115); Magnesium 1.3 mg/dL (1.6-2.6); Phosphorus 2.3 mg/dL (2.3-4.7); Potassium 4.5 mmol/L (3.5-5.1); Protein, Total 6.7 g/dL (6.0-8.3); Sodium 132 mmol/L (136-145)
--- NOTE | 2019-02-17 11:58 | PDOC.PN ---
- Subjective Encounter Start Date: 02/17/19 Encounter Start Time: 11:00 Subjective: pt up in bed feels better -: had a long discussion with her and she wants to be full code -: she understands that her overall outcome is poor - Objective Resuscitation Status - Order Detail: 02/17/19 11:54 Resuscitation Status Routine Resuscitation Status: FULL: Full Resuscitation Vital Signs & Weight: Vital Signs (12 hours) Temp Pulse Pulse Pulse Resp BP BP 02/17/19 10:37 89 17 02/17/19 10:28 97.3 F L 02/17/19 09:00 101 H 102 H 158/98 H 180/101 H 02/17/19 07:42 02/17/19 07:12 99 30 H 02/17/19 07:11 97.6 F 02/17/19 03:47 98.0 F 02/17/19 02:11 91 28 H 02/16/19 23:56 98.7 F Pulse Ox Pulse Ox Pulse Ox 02/17/19 10:37 97 02/17/19 10:28 02/17/19 09:00 96 98 02/17/19 07:42 96 02/17/19 07:12 95 02/17/19 07:11 02/17/19 03:47 02/17/19 02:11 98 02/16/19 23:56 Weight Admit Weight 240 lb 14.4 oz Weight 256 lb 1.6 oz Most Recent Monitor Data Heart Rate from ECG 96 NIBP 163/83 NIBP BP-Mean 109 Respiration from ECG 24 SpO2 95 I&O: 02/16/19 02/17/19 02/18/19 06:59 06:59 06:59 Intake Total 800 800 Output Total 750 1400 Balance 50 -600 Result Diagrams: 02/17/19 09:47 02/17/19 09:47 Phys Exam - Physical Examination Neck: no nodes, no JVD, supple, full ROM Respiratory: no wheezing, no rales, no rhonchi, wheezing present, clear to auscultation bilateral Cardiovascular: RRR, no significant murmur, no rub, gallop, irregular Gastrointestinal: soft, non-tender, no distention, positive bowel sounds Dx/Plan (1) Acute respiratory failure Code(s): J96.00 - ACUTE RESPIRATORY FAILURE, UNSP W HYPOXIA OR HYPERCAPNIA Status: Acute Qualifiers: (2) Pneumonia Code(s): J18.9 - PNEUMONIA, UNSPECIFIED ORGANISM Status: Acute (3) Chronic kidney disease (CKD) Code(s): N18.9 - CHRONIC KIDNEY DISEASE, UNSPECIFIED Status: Acute Qualifiers: Comment: stable (4) Epidural abscess Code(s): G06.2 - EXTRADURAL AND SUBDURAL ABSCESS, UNSPECIFIED Status: Acute (5) Hyponatremia Code(s): E87.1 - HYPO-OSMOLALITY AND HYPONATREMIA Status: Acute Comment: Sodium improved to 131 - Plan will give one dose of lasix now -: she continues to improve, will continue abx for now -: her Na has improved, i have held her paxil which can casuse hyponatremia -: she is only on a low dose * . Review of Systems - Review of Systems Respiratory: negative: Cough, Dry, Shortness of Breath, Hemoptysis, SOB with Excertion, Pleuritic Pain, Sputum, Wheezing Cardiovascular: negative: chest pain, palpitations, orthopnea, paroxysmal nocturnal dyspnea, edema, light headedness, other - Medications/Allergies Allergies/Adverse Reactions: Allergies Allergy/AdvReac Type Severity Reaction Status Date / Time levofloxacin [From Levaquin] Allergy Verified 02/14/19 16:37 morphine Allergy Verified 02/14/19 16:37 Penicillins Allergy Verified 02/14/19 16:37 Medications: Current Medications Acetaminophen (Tylenol) 650 mg PO Q4H PRN PRN Reason: Headache/Fever/Mild Pain (1-3) Hydrocodone Bitart/Acetaminophen ([place] 5/325) 1 tab PO Q6H PRN PRN Reason: Moderate Pain (4-6) Last Admin: 02/16/19 08:32 Dose: 1 tab Hydrocodone Bitart/Acetaminophen ([place] 10/325) 1 tab PO Q4H PRN PRN Reason: Moderate to Severe Pain (6-10) Last Admin: 02/17/19 10:00 Dose: 1 tab Albuterol/Ipratropium (Duoneb) 3 ml NEB [id number] [facility] Last Admin: 02/17/19 10:37 Dose: 3 ml Folic Acid (Folvite) 1 mg PO DAILY [facility] Last Admin: 02/17/19 09:58 Dose: 1 mg Hydralazine HCl (Apresoline) 5 mg SLOW IVP Q6H PRN PRN Reason: Blood Pressure Meropenem 1 gm/ Device 50 mls @ 100 mls/hr IVPB 0200,1000,1800 [facility] Last Admin: 02/17/19 10:01 Dose: 50 mls Vancomycin HCl 1.25 gm/ Sodium (Chloride) 250 mls @ 166.667 mls/hr IVPB 1600 [facility] Last Admin: 02/16/19 16:55 Dose: 250 mls Magnesium Sulfate 3 gm/ Sodium (Chloride) 106 mls @ 100 mls/hr IVPB ONE [facility] Levothyroxine Sodium (Synthroid) 25 mcg PO 0600 [facility] Last Admin: 02/17/19 05:58 Dose: 25 mcg Methylprednisolone Sodium Succinate (Solu-Medrol) 20 mg IVP BID [facility] Last Admin: 02/17/19 09:58 Dose: 20 mg Metoprolol Tartrate (Lopressor) 25 mg PO BID [facility] Last Admin: 02/17/19 09:57 Dose: 25 mg Miscellaneous Medication (Pharmacy To Dose) 1 each IVPB PRN PRN PRN Reason: Pharmacy to dose Pantoprazole Sodium (Protonix) 40 mg IVP DAILY [facility] Last Admin: 02/17/19 09:58 Dose: 40 mg Paroxetine HCl (Paxil) 10 mg PO DAILY [facility] Last Admin: 02/15/19 11:56 Dose: Not Given Saccharomyces Boulardii (Florastor) 250 mg PO DAILY [facility] Last Admin: 02/17/19 10:00 Dose: 250 mg Sodium Chloride (Flush - Normal Saline) 10 ml IVF Q12HR [facility] Last Admin: 02/17/19 10:02 Dose: 10 ml Sodium Chloride (Flush - Normal Saline) 10 ml IVF PRN PRN PRN Reason: Saline Flush Last Admin: 02/15/19 20:09 Dose: 10 ml Sodium Chloride (Flush - Normal Saline) 10 ml IVF PRN PRN PRN Reason: Saline Flush Temazepam (Restoril) 15 mg PO HSPRN PRN PRN Reason: Insomnia Last Admin: 02/16/19 23:40 Dose: 15 mg Thiamine HCl (Thiamine) 100 mg PO DAILY [facility] Last Admin: 02/17/19 09:58 Dose: 100 mg
[2019-02-17] MEDS ORDERED: Magnesium Sulfate 3 GM in Sodium Chloride 0.9% 100 ML IVPB SCH (12:00)
[2019-02-17 15:42] LABS: Vancomycin, Trough 20.7 ug/mL
[2019-02-17] MEDS ORDERED: Vancomycin HCl 1 GM in Premix Bag 1 BAG IVPB SCH (16:00)
[2019-02-17] MEDS: Vancomycin HCl 1.25 GM in Sodium Chloride 0.9% 250 ML 250 ML IVPB SCH (19:00)
[2019-02-17] MEDS: Vancomycin HCl 1 GM in Premix Bag 1 BAG IVPB SCH (20:41)
[2019-02-18] MEDS: Temazepam 15 MG CAP PO PRN (00:25)
[2019-02-18] MEDS: MEROPENEM 1 GM/50 ML 1 GM in Premix Bag 1 BAG IVPB SCH ×3 (02:38→18:51)
[2019-02-18] MEDS: HYDROcodone/Acetaminophen 10/325 mg Tablet PO PRN ×3 (03:29→23:30)
[2019-02-18] MEDS: Levothyroxine Sodium 25 MCG TAB PO SCH (05:58)
[2019-02-18 06:31] LABS: #Lymphocytes 0.9 thou/uL (1.20-3.40); #Monocytes 0.7 thou/uL (0.11-0.59); #Neutrophils 10.2 thou/uL (1.40-6.50); %Eosinophils 0.1 % (0.0-10.0); %Lymphocytes 7.6 % (21.0-51.0); %Monocytes 5.5 % (0.0-10.0); %Neutrophils 86.8 % (42.0-75.0); Mean Corpuscular HGB CONC 32.6 g/dL (32.0-36.0); Mean Corpuscular Hemoglobin 29.6 pg (27.0-31.0); Mean Corpuscular Volume 90.8 fL (78.0-98.0); Mean Platelet Volume 7.5 fL (7.4-10.4); Platelet Count 227 thou/uL (130-400); RBC Distribution Width 15.4 % (11.5-14.5); Red Blood Cell (RBC) Count 3.05 mill/uL (4.20-5.40); White Blood Cell (WBC) Count 11.7 thou/uL (4.8-10.8)
[2019-02-18 06:42] LABS: Anion Gap 13 mmol/L (10-20); BUN (Urea Nitrogen) 19 mg/dL (9.8-20.1); Calc. Creatinine Clearance 114 mL/min (70-130); Carbon Dioxide 30 mmol/L (23-31); Chloride 94 mmol/L (98-107); Estimated GFR-MDRD 63; Glucose 136 mg/dL (80-115); Magnesium 1.7 mg/dL (1.6-2.6); Phosphorus 2.7 mg/dL (2.3-4.7); Potassium 5.4 mmol/L (3.5-5.1); Sodium 132 mmol/L (136-145)
--- NOTE | 2019-02-18 08:36 | RAD ---
PORTABLE CHEST: INDICATION: CCU followup. Shortness of breath. COMPARISON: 02/17/2019. FINDINGS: Mild cardiomegaly with vascular congestion. Confluent infiltrate and/or atelectasis of the left lung base. The vascular congestive changes appear slightly improved from yesterday. POS: OFF
--- NOTE | 2019-02-18 09:38 | PRG ---
DATE OF SERVICE: 02/18/2019 SUBJECTIVE: This morning, she is much improved. OBJECTIVE: VITAL SIGNS: Saturations are 96% to 97% on 3 L, temperature 97, respiratory rate 28, blood pressure 130/80. CHEST: Decreased breath sounds. No wheezing. CARDIAC: Normal S1, S2. No gallops. ABDOMEN: No masses. IMAGING STUDIES: X-ray shows a small left-sided infiltrateonly_. LABORATORY DATA: Lytes are normal. Blood sugar 136. White count 11,000. ASSESSMENT: 1. Osteomyelitis. 2. Aspiration pneumonia. PLAN: She can probably be transitioned out of the ICU. Antibiotics as per Infectious Disease. PT, supportive care. Job ID: [id number] [id number]
[2019-02-18] MEDS: Thiamine 100 MG TAB PO SCH (10:22)
[2019-02-18] MEDS: Metoprolol Tartrate 25 MG TAB PO SCH ×2 (10:22→21:11)
[2019-02-18] MEDS: Folic Acid 1 MG TAB PO SCH (10:22)
[2019-02-18] MEDS: Saccharomyces boulardii 250 MG CAP PO SCH (10:23)
[2019-02-18] MEDS: Pantoprazole 40 MG VIAL IVP SCH (10:23)
[2019-02-18] MEDS: Enoxaparin Sodium 40 MG/0.4 ML SYRINGE SC SCH (10:24)
[2019-02-18] MEDS ORDERED: Fentanyl 100 MCG/2 ML VIAL SLOW IVP PRN (11:16)
[2019-02-18] MEDS: methylPREDNISolone Sod Succ 40 MG VIAL IVP SCH (11:17)
[2019-02-18] MEDS: ALPRAZolam 0.25 MG TAB PO PRN (11:25)
[2019-02-18 14:02] VITALS: BMI 41.3
--- NOTE | 2019-02-18 15:14 | PDOC.PN ---
- Subjective Encounter Start Date: 02/18/19 Encounter Start Time: 10:00 Subjective: pt unable to sleep last night -: family updated - Objective Resuscitation Status - Order Detail: 02/17/19 11:54 Resuscitation Status Routine Resuscitation Status: FULL: Full Resuscitation Vital Signs & Weight: Vital Signs (12 hours) Temp Pulse Resp BP Pulse Ox 02/18/19 13:38 91 30 H 100 02/18/19 10:36 97.2 F L 02/18/19 07:39 100 02/18/19 07:33 97.0 F L 02/18/19 07:20 89 28 H 100 02/18/19 07:19 97.0 F L 02/18/19 04:00 98.0 F 90 20 157/88 H 96 02/18/19 03:30 90 24 H 100 Weight Admit Weight 240 lb 14.4 oz Weight 248 lb 6.4 oz Most Recent Monitor Data Heart Rate from ECG 89 NIBP 165/86 NIBP BP-Mean 112 Respiration from ECG 18 SpO2 100 I&O: 02/17/19 02/18/19 02/19/19 06:59 06:59 06:59 Intake Total 800 460 Output Total 1400 970 Balance -600 -510 Result Diagrams: 02/18/19 06:07 02/18/19 06:07 Phys Exam - Physical Examination Neck: no nodes, no JVD, supple, full ROM Respiratory: no wheezing, no rales, no rhonchi, wheezing present, clear to auscultation bilateral Cardiovascular: RRR, no significant murmur, no rub, gallop, irregular Gastrointestinal: soft, non-tender, no distention, positive bowel sounds Dx/Plan (1) Acute respiratory failure Code(s): J96.00 - ACUTE RESPIRATORY FAILURE, UNSP W HYPOXIA OR HYPERCAPNIA Status: Acute Qualifiers: (2) Pneumonia Code(s): J18.9 - PNEUMONIA, UNSPECIFIED ORGANISM Status: Acute (3) Chronic kidney disease (CKD) Code(s): N18.9 - CHRONIC KIDNEY DISEASE, UNSPECIFIED Status: Acute Qualifiers: Comment: stable (4) Epidural abscess Code(s): G06.2 - EXTRADURAL AND SUBDURAL ABSCESS, UNSPECIFIED Status: Acute (5) Hyponatremia Code(s): E87.1 - HYPO-OSMOLALITY AND HYPONATREMIA Status: Acute Comment: Sodium improved to 131 - Plan pt appears anxious, will add xanax, she is afraid that she will not wake up -: if she sleeps. will add melatonin. pt reassured. may consider tapering -: steroids since pt states she cannot sleep when she is on steroids -: will continue abx for now. Educated pt to drink fuids, she does not like -: thickned liquids risk of aspiration educated. * . Review of Systems - Review of Systems Respiratory: negative: Cough, Dry, Shortness of Breath, Hemoptysis, SOB with Excertion, Pleuritic Pain, Sputum, Wheezing Cardiovascular: negative: chest pain, palpitations, orthopnea, paroxysmal nocturnal dyspnea, edema, light headedness, other Gastrointestinal: negative: Nausea, Vomiting, Abdominal Pain, Diarrhea, Constipation, Melena, Hematochezia, Other - Medications/Allergies Allergies/Adverse Reactions: Allergies Allergy/AdvReac Type Severity Reaction Status Date / Time levofloxacin [From Levaquin] Allergy Verified 02/14/19 16:37 morphine Allergy Verified 02/14/19 16:37 Penicillins Allergy Verified 02/14/19 16:37 Medications: Current Medications Acetaminophen (Tylenol) 650 mg PO Q4H PRN PRN Reason: Headache/Fever/Mild Pain (1-3) Hydrocodone Bitart/Acetaminophen ([place] 5/325) 1 tab PO Q6H PRN PRN Reason: Moderate Pain (4-6) Last Admin: 02/16/19 08:32 Dose: 1 tab Hydrocodone Bitart/Acetaminophen ([place] 10/325) 1 tab PO Q4H PRN PRN Reason: Moderate to Severe Pain (6-10) Last Admin: 02/18/19 03:29 Dose: 1 tab Albuterol/Ipratropium (Duoneb) 3 ml NEB [id number] Alprazolam (Xanax) 0.25 mg PO BIDPRN PRN PRN Reason: Anxiety Last Admin: 02/18/19 11:25 Dose: 0.25 mg Enoxaparin Sodium (Lovenox) 40 mg SC 0900 [facility] Last Admin: 02/18/19 10:24 Dose: 40 mg Folic Acid (Folvite) 1 mg PO DAILY [facility] Last Admin: 02/18/19 10:22 Dose: 1 mg Hydralazine HCl (Apresoline) 5 mg SLOW IVP Q6H PRN PRN Reason: Blood Pressure Meropenem 1 gm/ Device 50 mls @ 100 mls/hr IVPB 0200,1000,1800 [facility] Last Admin: 02/18/19 10:23 Dose: 50 mls Vancomycin HCl 1 gm/ Device 200 mls @ 200 mls/hr IVPB 2000 [facility] Last Admin: 02/17/19 20:41 Dose: 200 mls Levothyroxine Sodium (Synthroid) 25 mcg PO 0600 [facility] Last Admin: 02/18/19 05:58 Dose: 25 mcg Melatonin (Melatonin) 10 mg PO HS [facility] Metoprolol Tartrate (Lopressor) 25 mg PO BID [facility] Last Admin: 02/18/19 10:22 Dose: 25 mg Miscellaneous Medication (Pharmacy To Dose) 1 each IVPB PRN PRN PRN Reason: Pharmacy to dose Pantoprazole Sodium (Protonix) 40 mg IVP DAILY [facility] Last Admin: 02/18/19 10:23 Dose: 40 mg Paroxetine HCl (Paxil) 10 mg PO DAILY [facility] Last Admin: 02/15/19 11:56 Dose: Not Given Prednisone (Prednisone) 20 mg PO QAM-WM [facility] Stop: 02/22/19 08:01 Saccharomyces Boulardii (Florastor) 250 mg PO DAILY [facility] Last Admin: 02/18/19 10:23 Dose: 250 mg Sodium Chloride (Flush - Normal Saline) 10 ml IVF Q12HR [facility] Last Admin: 02/18/19 10:24 Dose: 10 ml Sodium Chloride (Flush - Normal Saline) 10 ml IVF PRN PRN PRN Reason: Saline Flush Last Admin: 02/15/19 20:09 Dose: 10 ml Sodium Chloride (Flush - Normal Saline) 10 ml IVF PRN PRN PRN Reason: Saline Flush Temazepam (Restoril) 15 mg PO HSPRN PRN PRN Reason: Insomnia Last Admin: 02/18/19 00:25 Dose: 15 mg Thiamine HCl (Thiamine) 100 mg PO DAILY [facility] Last Admin: 02/18/19 10:22 Dose: 100 mg
[2019-02-18] MEDS: Vancomycin HCl 1 GM in Premix Bag 1 BAG IVPB SCH (20:41)
[2019-02-18] MEDS ORDERED: Melatonin 3 MG TAB PO SCH (21:00)
[2019-02-19] MEDS: MEROPENEM 1 GM/50 ML 1 GM in Premix Bag 1 BAG IVPB SCH ×3 (02:55→17:56)
[2019-02-19] MEDS ORDERED: Morphine 2 MG/ML SYRINGE SLOW IVP SCH (03:30)
[2019-02-19] MEDS ORDERED: Fentanyl 100 MCG/2 ML VIAL SLOW IVP SCH (04:30)
[2019-02-19] MEDS: HYDROcodone/Acetaminophen 10/325 mg Tablet PO PRN ×3 (05:51→19:47)
[2019-02-19] MEDS: Levothyroxine Sodium 25 MCG TAB PO SCH (05:51)
--- NOTE | 2019-02-19 08:12 | RAD ---
RADIOGRAPH CHEST 1 VIEW: DATE: 02/19/2019 TIME: 7:14 AM HISTORY: 63-year-old female with respiratory distress. "Ventilation" COMPARISON: 02/18/2019 FINDINGS: Despite the clinical history provided, there is no endotracheal tube or any other life support line. Lungs are hypoinflated. Multifocal bilateral patchy heterogeneously distributed infiltrates, most confluent at right upper lobe and left base. No pneumothorax. No interval change. IMPRESSION: 1. No interval change. 2. Multifocal bilateral patchy mixed interstitial and alveolar infiltrates.
[2019-02-19] MEDS: predniSONE 20 MG TAB PO SCH (09:29)
[2019-02-19] MEDS: Metoprolol Tartrate 25 MG TAB PO SCH ×2 (09:29→19:48)
[2019-02-19] MEDS: Saccharomyces boulardii 250 MG CAP PO SCH (09:29)
[2019-02-19] MEDS: Thiamine 100 MG TAB PO SCH (09:29)
[2019-02-19] MEDS: PARoxetine 20 MG TAB PO SCH (09:29)
[2019-02-19] MEDS: Folic Acid 1 MG TAB PO SCH (09:29)
[2019-02-19] MEDS: Enoxaparin Sodium 40 MG/0.4 ML SYRINGE SC SCH (09:29)
[2019-02-19 09:31] LABS: Anion Gap 13 mmol/L (10-20); BUN (Urea Nitrogen) 18 mg/dL (9.8-20.1); Calc. Creatinine Clearance 134 mL/min (70-130); Carbon Dioxide 31 mmol/L (23-31); Chloride 93 mmol/L (98-107); Estimated GFR-MDRD 76; Potassium 5.3 mmol/L (3.5-5.1); Sodium 132 mmol/L (136-145)
[2019-02-19 09:32] LABS: Calcium 9.7 mg/dL (7.8-10.44); Glucose 98 mg/dL (80-115)
[2019-02-19] MEDS: Pantoprazole 40 MG VIAL IVP SCH (09:37)
--- NOTE | 2019-02-19 11:00 | PRG ---
DATE OF SERVICE: 02/19/2019 SUBJECTIVE: This morning, she is better, she is less short of breath, less cough. Still on the same antibiotics of vancomycin and meropenem as per Infectious Disease. OBJECTIVE: VITAL SIGNS: Temperature 97, pulse 92, blood pressure 171/98 on 2 L. CHEST: No wheezing or crackles. CARDIAC: Normal S1 and S2. No gallops. ABDOMEN: No masses. LABORATORY DATA: Sodium 132. IMPRESSION: 1. Encephalopathy, improved. 2. Pneumonia, improved. 3. Diabetes, obesity, sepsis syndrome, and osteomyelitis. PLAN: X-rays still show some nonspecific infiltrates. Continue PT, supportive care, eventually placement. Job ID: [id number]
[2019-02-19 11:46] VITALS: BP 171/98
[2019-02-19] MEDS: ALPRAZolam 0.25 MG TAB PO PRN ×2 (14:20→22:43)
[2019-02-19] MEDS ORDERED: Fentanyl 100 MCG/2 ML VIAL SLOW IVP PRN (14:28)
--- NOTE | 2019-02-19 14:35 | PDOC.PN ---
- Subjective Encounter Start Date: 02/19/19 Encounter Start Time: 10:00 Subjective: pt up in bed, is not sleeping much - Objective Resuscitation Status - Order Detail: 02/17/19 11:54 Resuscitation Status Routine Resuscitation Status: FULL: Full Resuscitation Vital Signs & Weight: Vital Signs (12 hours) Temp Pulse Pulse Pulse Resp BP BP 02/19/19 13:01 80 24 H 02/19/19 10:40 97.0 F L 02/19/19 08:58 122 H 97 171/98 H 145/74 H 02/19/19 08:00 02/19/19 07:18 78 24 H 02/19/19 07:05 97.0 F L 02/19/19 04:37 98.4 F Pulse Ox Pulse Ox Pulse Ox 02/19/19 13:01 02/19/19 10:40 02/19/19 08:58 95 97 02/19/19 08:00 97 02/19/19 07:18 96 02/19/19 07:05 02/19/19 04:37 Weight Admit Weight 240 lb 14.4 oz Weight 249 lb 9.6 oz Most Recent Monitor Data Heart Rate from ECG 89 NIBP 145/81 NIBP BP-Mean 102 Respiration from ECG 22 SpO2 98 I&O: 02/18/19 02/19/19 02/20/19 06:59 06:59 06:59 Intake Total 460 1250 Output Total 970 1490 Balance -510 -240 Result Diagrams: 02/18/19 06:07 02/19/19 09:02 Phys Exam - Physical Examination Neck: no nodes, no JVD, supple, full ROM Respiratory: no wheezing, no rales, no rhonchi, wheezing present, clear to auscultation bilateral Cardiovascular: RRR, no significant murmur, no rub, gallop, irregular Gastrointestinal: soft, non-tender, no distention, positive bowel sounds Dx/Plan (1) Acute respiratory failure Code(s): J96.00 - ACUTE RESPIRATORY FAILURE, UNSP W HYPOXIA OR HYPERCAPNIA Status: Acute Qualifiers: (2) Pneumonia Code(s): J18.9 - PNEUMONIA, UNSPECIFIED ORGANISM Status: Acute (3) Chronic kidney disease (CKD) Code(s): N18.9 - CHRONIC KIDNEY DISEASE, UNSPECIFIED Status: Acute Qualifiers: Comment: stable (4) Epidural abscess Code(s): G06.2 - EXTRADURAL AND SUBDURAL ABSCESS, UNSPECIFIED Status: Acute (5) Hyponatremia Code(s): E87.1 - HYPO-OSMOLALITY AND HYPONATREMIA Status: Acute Comment: Sodium improved to 131 - Plan pt very drowsy arousable -: will continue abx for now -: will check with ID to down grade abx * . Review of Systems - Review of Systems Respiratory: negative: Cough, Dry, Shortness of Breath, Hemoptysis, SOB with Excertion, Pleuritic Pain, Sputum, Wheezing Cardiovascular: negative: chest pain, palpitations, orthopnea, paroxysmal nocturnal dyspnea, edema, light headedness, other - Medications/Allergies Allergies/Adverse Reactions: Allergies Allergy/AdvReac Type Severity Reaction Status Date / Time levofloxacin [From Levaquin] Allergy Verified 02/14/19 16:37 morphine Allergy Verified 02/14/19 16:37 Penicillins Allergy Verified 02/14/19 16:37 Medications: Current Medications Acetaminophen (Tylenol) 650 mg PO Q4H PRN PRN Reason: Headache/Fever/Mild Pain (1-3) Hydrocodone Bitart/Acetaminophen ([place] 5/325) 1 tab PO Q6H PRN PRN Reason: Moderate Pain (4-6) Last Admin: 02/16/19 08:32 Dose: 1 tab Hydrocodone Bitart/Acetaminophen ([place] 10/325) 1 tab PO Q4H PRN PRN Reason: Moderate to Severe Pain (6-10) Last Admin: 02/19/19 11:10 Dose: 1 tab Albuterol/Ipratropium (Duoneb) 3 ml NEB [id number] [facility] Last Admin: 02/19/19 13:01 Dose: 3 ml Alprazolam (Xanax) 0.25 mg PO BIDPRN PRN PRN Reason: Anxiety Last Admin: 02/19/19 14:20 Dose: 0.25 mg Enoxaparin Sodium (Lovenox) 40 mg SC 0900 [facility] Last Admin: 02/19/19 09:29 Dose: 40 mg Fentanyl (Sublimaze) 25 mcg SLOW IVP ONE PRN PRN Reason: Pain Stop: 02/20/19 14:29 Folic Acid (Folvite) 1 mg PO DAILY [facility] Last Admin: 02/19/19 09:29 Dose: 1 mg Hydralazine HCl (Apresoline) 5 mg SLOW IVP Q6H PRN PRN Reason: Blood Pressure Last Admin: 02/18/19 17:59 Dose: 5 mg Meropenem 1 gm/ Device 50 mls @ 100 mls/hr IVPB 0200,1000,1800 [facility] Last Admin: 02/19/19 09:30 Dose: 50 mls Vancomycin HCl 1 gm/ Device 200 mls @ 200 mls/hr IVPB 2000 [facility] Last Admin: 02/18/19 20:41 Dose: 200 mls Levothyroxine Sodium (Synthroid) 25 mcg PO 0600 [facility] Last Admin: 02/19/19 05:51 Dose: 25 mcg Melatonin (Melatonin) 10 mg PO HS [facility] Last Admin: 02/18/19 21:12 Dose: 10 mg Metoprolol Tartrate (Lopressor) 25 mg PO BID [facility] Last Admin: 02/19/19 09:29 Dose: 25 mg Miscellaneous Medication (Pharmacy To Dose) 1 each IVPB PRN PRN PRN Reason: Pharmacy to dose Pantoprazole Sodium (Protonix) 40 mg IVP DAILY [facility] Last Admin: 02/19/19 09:37 Dose: 40 mg Paroxetine HCl (Paxil) 10 mg PO DAILY [facility] Last Admin: 02/19/19 09:29 Dose: 10 mg Prednisone (Prednisone) 20 mg PO [facility] Stop: 02/22/19 08:01 Last Admin: 02/19/19 09:29 Dose: 20 mg Saccharomyces Boulardii (Florastor) 250 mg PO DAILY [facility] Last Admin: 02/19/19 09:29 Dose: 250 mg Sodium Chloride (Flush - Normal Saline) 10 ml IVF Q12HR [facility] Last Admin: 02/19/19 09:37 Dose: 10 ml Sodium Chloride (Flush - Normal Saline) 10 ml IVF PRN PRN PRN Reason: Saline Flush Last Admin: 02/19/19 02:55 Dose: 10 ml Sodium Chloride (Flush - Normal Saline) 10 ml IVF PRN PRN PRN Reason: Saline Flush Temazepam (Restoril) 15 mg PO HSPRN PRN PRN Reason: Insomnia Last Admin: 02/18/19 00:25 Dose: 15 mg Thiamine HCl (Thiamine) 100 mg PO DAILY [facility] Last Admin: 02/19/19 09:29 Dose: 100 mg
[2019-02-19 15:49] LABS: Vancomycin, Trough 20.4 ug/mL
[2019-02-19 15:52] LABS: Actual Bicarbonate (HCO3a) 35.6 mEq/L (22-28); Calcium, Ionized 1.21 mmol/L (1.12-1.30); Carboxyhemoglobin (COHb) 1.3 gm% (0.0-3.0); Hemoglobin (Hb) 9.9 g/dL (12.0-16.0); Potassium - ABG Lab 5.82 mmol/L (3.70-5.30); pH, Arterial 7.33 (7.35-7.45)
[2019-02-19 15:53] LABS: CO2 Tension 69.3 mmHg (35.0-45.0)
[2019-02-19 15:54] LABS: O2 Tension (PaO2) 53.4 mmHg (> 80.0); Puncture Site RR
[2019-02-19] MEDS ORDERED: Furosemide 40 MG/4 ML VIAL SLOW IVP SCH (16:30)
[2019-02-19] MEDS: Vancomycin HCl 750 MG in Sodium Chloride 0.9% 250 ML 250 ML IVPB SCH (17:54)
[2019-02-19] MEDS: Temazepam 15 MG CAP PO PRN (19:49)
[2019-02-19] MEDS: Melatonin 3 MG TAB PO SCH ×2 (21:54→22:27)
[2019-02-19] MEDS ORDERED: HYDROcodone/Acetaminophen 10/325 mg Tablet PO PRN (23:08)
[2019-02-20] MEDS: MEROPENEM 1 GM/50 ML 1 GM in Premix Bag 1 BAG IVPB SCH ×3 (01:51→17:28)
[2019-02-20] MEDS: Levothyroxine Sodium 25 MCG TAB PO SCH (05:14)
[2019-02-20] MEDS: HYDROcodone/Acetaminophen 10/325 mg Tablet PO PRN ×2 (05:15→09:44)
--- NOTE | 2019-02-20 09:02 | PDOC.PALFU ---
Palliative Care Follow-up Note Follow up with patient in relation to symptom management, disease assist in complex decision making. Patient in pain this morning, confused, lethargic. Labored respirations with poor peripheral circulation. Having difficulty clearing secretions. Will discuss plan of care with Dr Alvarez and if palliative care team can assist with family discussion in relation to patient disease trajectory and outcomes will assist as needed.
[2019-02-20] MEDS: PARoxetine 20 MG TAB PO SCH (09:42)
[2019-02-20] MEDS: Saccharomyces boulardii 250 MG CAP PO SCH (09:42)
[2019-02-20] MEDS: Metoprolol Tartrate 25 MG TAB PO SCH (09:42)
[2019-02-20] MEDS: Enoxaparin Sodium 40 MG/0.4 ML SYRINGE SC SCH (09:42)
[2019-02-20] MEDS: predniSONE 20 MG TAB PO SCH (09:42)
[2019-02-20] MEDS: Thiamine 100 MG TAB PO SCH (09:43)
[2019-02-20] MEDS: Pantoprazole 40 MG VIAL IVP SCH (09:43)
[2019-02-20] MEDS: Folic Acid 1 MG TAB PO SCH (09:43)
[2019-02-20 10:43] LABS: Anion Gap 10 mmol/L (10-20); BUN (Urea Nitrogen) 17 mg/dL (9.8-20.1); Calc. Creatinine Clearance 142 mL/min (70-130); Calcium 9.2 mg/dL (7.8-10.44); Carbon Dioxide 36 mmol/L (23-31); Chloride 91 mmol/L (98-107); Estimated GFR-MDRD 82; Glucose 100 mg/dL (80-115); Sodium 132 mmol/L (136-145)
--- NOTE | 2019-02-20 11:54 | PQF ---
CLINICAL DOCUMENTATION IMPROVEMENT CLARIFICATION FORM: ICD-10 Updated PLEASE DO AN ADDENDUM TO THE PROGRESS NOTE WITH ANY DOCUMENTATION UPDATES OR ADDITIONS AND CARRY THROUGH TO DC SUMMARY. THANK YOU. DATE: 02/20/2019 ATTN: Dr. Alvarez Please exercise your independent, professional judgment in responding to the clarification form. Clinical indicators are provided on the bottom of this form for your review Please check appropriate box(es): [ x] Sepsis due to Aspiration Pneumonia [ ] Sepsis due to other: [ ] Severe sepsis with acute organ dysfunction of: (Examples: respiratory failure, encephalopathy, other) [ ] Localized infection without sepsis [ ] Other diagnosis [ ] Unable to determine In addition, please specify: Present on Admission (POA): [ x ] Yes [ ] No [ ] Unable to determine For continuity of documentation, please document condition throughout progress notes and discharge summary. Thank You. CLINICAL INDICATORS - SIGNS / SYMPTOMS / LABS ER RECORD 02/14: Pulse 93, O2 sat 92 on 4L Oxygen, Resp. 22 Diagnosis: Hypoxia, Hospital associated PNA, Sepsis H&P 02/14 : WBCs of 19.6 02/15 ([place]) Aspiration pneumonia, bilateral Respiratory failure 02/19 ([place]) Encephalopathy, improved. Pneumonia, improved. Diabetes, obesity, sepsis syndrome, and osteomyelitis RISKS: H&P 02/14: Hx of lumbar spine abscesses and MRSA bacteremia. Morbid obesity. 02/15([place]) recently discharged from hospital with sepsis syndrome and osteomyelitis when she presented with respiratory failure. Aspiration pneumonia, bilateral. Respiratory failure TREATMENT: ID Consult: Agree with meropenem and vancomycin Thank you, Radha (This form is maintained as a part of the permanent medical record) 2014 [employer]. All Rights Reserved Radha Vidal RN, [email or web address] Office: [phone] [facility]
--- NOTE | 2019-02-20 15:14 | PDOC.PN ---
- Subjective Encounter Start Date: 02/20/19 Encounter Start Time: 10:30 Subjective: pt up in bed very drowsy but arousable - Objective Resuscitation Status - Order Detail: 02/17/19 11:54 Resuscitation Status Routine Resuscitation Status: FULL: Full Resuscitation Vital Signs & Weight: Vital Signs (12 hours) Temp Pulse Resp Pulse Ox 02/20/19 12:47 96 02/20/19 12:44 76 21 H 96 02/20/19 11:07 96.4 F L 02/20/19 10:47 93 L 02/20/19 08:01 95 02/20/19 07:46 94 L 02/20/19 07:44 84 27 H 92 L 02/20/19 07:31 96.4 F L 02/20/19 03:54 97.5 F L Weight Admit Weight 240 lb 14.4 oz Weight 247 lb 6 oz Most Recent Monitor Data Heart Rate from ECG 72 NIBP 112/70 NIBP BP-Mean 84 Respiration from ECG 24 SpO2 97 I&O: 02/19/19 02/20/19 02/21/19 06:59 06:59 06:59 Intake Total 1250 924.5 Output Total 1490 1250 Balance -240 -325.5 Result Diagrams: 02/18/19 06:07 02/20/19 10:17 Phys Exam - Physical Examination Neck: no nodes, no JVD, supple, full ROM Respiratory: no wheezing, no rales, no rhonchi, wheezing present, clear to auscultation bilateral Cardiovascular: RRR, no significant murmur, no rub, gallop, irregular Gastrointestinal: soft, non-tender, no distention, positive bowel sounds Musculoskeletal: no edema, pulses present, edema present Dx/Plan (1) Acute respiratory failure Code(s): J96.00 - ACUTE RESPIRATORY FAILURE, UNSP W HYPOXIA OR HYPERCAPNIA Status: Acute Qualifiers: (2) Pneumonia Code(s): J18.9 - PNEUMONIA, UNSPECIFIED ORGANISM Status: Acute (3) Chronic kidney disease (CKD) Code(s): N18.9 - CHRONIC KIDNEY DISEASE, UNSPECIFIED Status: Acute Qualifiers: Comment: stable (4) Epidural abscess Code(s): G06.2 - EXTRADURAL AND SUBDURAL ABSCESS, UNSPECIFIED Status: Acute (5) Hyponatremia Code(s): E87.1 - HYPO-OSMOLALITY AND HYPONATREMIA Status: Acute Comment: Sodium improved to 131 - Plan pt on high flow oxygen, she still is not doing well -: she is on iv abx. pt had significant pain last night was put on -: fentanyl patch low dose. she also has not slept for 2 nights. -: she has been very paranoid. * . Review of Systems - Review of Systems Other: unable to obtain - Medications/Allergies Allergies/Adverse Reactions: Allergies Allergy/AdvReac Type Severity Reaction Status Date / Time levofloxacin [From Levaquin] Allergy Verified 02/14/19 16:37 morphine Allergy Verified 02/14/19 16:37 Penicillins Allergy Verified 02/14/19 16:37 Medications: Current Medications Acetaminophen (Tylenol) 650 mg PO Q4H PRN PRN Reason: Headache/Fever/Mild Pain (1-3) Hydrocodone Bitart/Acetaminophen ([place] 5/325) 1 tab PO Q6H PRN PRN Reason: Moderate Pain (4-6) Last Admin: 02/16/19 08:32 Dose: 1 tab Hydrocodone Bitart/Acetaminophen ([place] 10/325) 1 tab PO Q4H PRN PRN Reason: Moderate to Severe Pain (6-10) Last Admin: 02/20/19 09:44 Dose: 1 tab Albuterol/Ipratropium (Duoneb) 3 ml NEB [id number] [facility] Last Admin: 02/20/19 12:44 Dose: 3 ml Alprazolam (Xanax) 0.25 mg PO BIDPRN PRN PRN Reason: Anxiety Last Admin: 02/19/19 22:43 Dose: 0.25 mg Enoxaparin Sodium (Lovenox) 40 mg SC 0900 [facility] Last Admin: 02/20/19 09:42 Dose: 40 mg Fentanyl (Duragesic) 12 mcg TD Q3D [facility] Last Admin: 02/19/19 17:55 Dose: 12 mcg Folic Acid (Folvite) 1 mg PO DAILY [facility] Last Admin: 02/20/19 09:43 Dose: 1 mg Hydralazine HCl (Apresoline) 5 mg SLOW IVP Q6H PRN PRN Reason: Blood Pressure Last Admin: 02/18/19 17:59 Dose: 5 mg Meropenem 1 gm/ Device 50 mls @ 100 mls/hr IVPB 0200,1000,1800 [facility] Last Admin: 02/20/19 09:42 Dose: 50 mls Vancomycin HCl 750 mg/ Sodium (Chloride) 250 mls @ 250 mls/hr IVPB 1600 [facility] Last Admin: 02/19/19 17:54 Dose: 250 mls Levothyroxine Sodium (Synthroid) 25 mcg PO 0600 [facility] Last Admin: 02/20/19 05:14 Dose: 25 mcg Melatonin (Melatonin) 9 mg PO HS [facility] Last Admin: 02/19/19 22:27 Dose: 9 mg Metoprolol Tartrate (Lopressor) 25 mg PO BID [facility] Last Admin: 02/20/19 09:42 Dose: 25 mg Miscellaneous Medication (Pharmacy To Dose) 1 each IVPB PRN PRN PRN Reason: Pharmacy to dose Pantoprazole Sodium (Protonix) 40 mg IVP DAILY [facility] Last Admin: 02/20/19 09:43 Dose: 40 mg Paroxetine HCl (Paxil) 10 mg PO DAILY [facility] Last Admin: 02/20/19 09:42 Dose: 10 mg Prednisone (Prednisone) 20 mg PO QAM-WM [facility] Stop: 02/22/19 08:01 Last Admin: 02/20/19 09:42 Dose: 20 mg Saccharomyces Boulardii (Florastor) 250 mg PO DAILY [facility] Last Admin: 02/20/19 09:42 Dose: 250 mg Sodium Chloride (Flush - Normal Saline) 10 ml IVF Q12HR [facility] Last Admin: 02/20/19 09:43 Dose: 10 ml Sodium Chloride (Flush - Normal Saline) 10 ml IVF PRN PRN PRN Reason: Saline Flush Last Admin: 02/19/19 02:55 Dose: 10 ml Sodium Chloride (Flush - Normal Saline) 10 ml IVF PRN PRN PRN Reason: Saline Flush Temazepam (Restoril) 15 mg PO HSPRN PRN PRN Reason: Insomnia Last Admin: 02/19/19 19:49 Dose: 15 mg Thiamine HCl (Thiamine) 100 mg PO DAILY [facility] Last Admin: 02/20/19 09:43 Dose: 100 mg
--- NOTE | 2019-02-20 15:21 | PDOC.PALPN ---
Palliative Progress Note - Subjective Lethatrgic, moaning. - Objective Vital Signs: Vital Signs - Most Recent Temp Pulse Resp BP Pulse Ox 96.4 F L 76 21 H 171/98 H 96 02/20/19 11:07 02/20/19 12:44 02/20/19 12:44 02/19/19 08:58 02/20/19 12:47 - Physical Exam Constitutional: moderate distress HEENT: EOMI Deviation from normal: labored respirations, adventicious lung sounds Musculoskeletal: edema present Deviation from normal: Confused, unable to determination orientation beyond self Deviation from normal: pallor, brusing in various stages of healing - Assessment (1) Palliative care encounter Code(s): Z51.5 - ENCOUNTER FOR PALLIATIVE CARE Current Visit: Yes Status: Acute Comment: Sister at bedside. Patient sister requested information in relation to hospice/ gip. Will reach out to Gloria WORKMAN for assistance. - Plan Plan: *Dr Weinstein notified and agrees with below: *Scopolamine patch for management of secretions. *Sister of patient requests information in relation to hospice/GIP. Discussed *Yue WORKMAN for palliative care and Gloria MANRIQUE) on unit notified for follow up in relation to Hospice/GIP for patient. *I will continue to follow along with Yue Mas RN with Palliative care. [40] minutes spent on this encounter with >50% of the time in counseling and coordination of care.
[2019-02-20] MEDS ORDERED: Scopolamine 1.5 mg/72 hour Patch TD SCH (15:30)
[2019-02-20] MEDS: Vancomycin HCl 750 MG in Sodium Chloride 0.9% 250 ML 250 ML IVPB SCH (15:55)
[2019-02-20] MEDS ORDERED: Lorazepam 2 MG/ML VIAL SLOW IVP PRN (19:02)
[2019-02-20] MEDS ORDERED: Ondansetron PF 4 MG/2 ML Vial SLOW IVP PRN (19:02)
[2019-02-20] MEDS ORDERED: Bisacodyl 10 MG SUPP PR PRN (19:03)
[2019-02-20 19:50] VITALS: TEMP 97.6
--- NOTE | 2019-02-20 20:06 | PRG ---
DATE OF SERVICE: 02/20/2019 SUBJECTIVE: Anuj was evaluated today. I initially evaluated her and she was obtunded. Nurse contacted her sister, who is a nurse in the operating room, who came upstairs. I went back in the room with her sister and with shaking her shoulder, she awakened. She briefly made eye contact with her sister and mumbled something. Her sister was able to get her to say her name. Her sister very clearly wants her to be a do not resuscitate patient. We had a long discussion about bringing her mother up here. She says her sister has been waxing and waning as far as her clinical condition for quite some time, and her mother has already been brought up here once believing she was coming to watch her daughter . I do not think her is imminent, but I do not think she has months to live either, but I would suspect it is more likely days given her clinical condition, her physical exam findings, her muscle fatigue, and the severity of her pneumonia. OBJECTIVE: VITAL SIGNS: Her heart rates in the 70s, respiratory rates in the 20s, oximetry is 98% on a high-flow cannula, blood pressure 127/64. LUNGS: Remarkable for rhonchi bilaterally. HEART: Regular rhythm. ABDOMEN: Soft. IMPRESSION AND PLAN: Extreme deconditioning with pneumonia, most likely aspiration mediated. She is approaching the end of her life. I do not feel that there are any good therapeutic options, and I certainly do not feel that mechanical ventilation would lengthen or add quality to her life. I answered all the questions of her sister to her satisfaction. We will continue to follow for support for mainly her sister. Job ID: [id number]
[2019-02-20] MEDS ORDERED: Fentanyl 100 MCG/2 ML VIAL SLOW IVP SCH (21:00)
--- NOTE | 2019-02-21 20:27 | EKG ---
Test Reason : SOB Blood Pressure : / mmHG Vent. Rate : 090 BPM Atrial Rate : 090 BPM P-R Int : 136 ms QRS Dur : 078 ms QT Int : 344 ms P-R-T Axes : 031 026 040 degrees QTc Int : 420 ms Normal sinus rhythm Normal ECG Confirmed by PATI KAPLAN D.O. ([id number]), supervising editor news reel KAEL LR ([id number]) on 02/21/2019 8:27:36 PM Referred By: Confirmed By:PATI KAPLAN D.O.
--- NOTE | 2019-02-23 12:58 | DIS ---
DATE OF ADMISSION: 02/14/2019 DATE OF DISCHARGE: 02/20/2019 DISCHARGE DIAGNOSES: As of the following; 1. Acute respiratory failure. 2. Pneumonia, most likely aspiration. 3. Diabetes. 4. Epidural abscesses, currently was on treatment. HOSPITAL COURSE: The patient is a 63-year-old female who was recently discharged from the hospital on 02/05, who presented back to the hospital on 02/14, with complaints of shortness of breath. At this time, she underwent a CT chest, which indicated multifocal pneumonia and also indicated presumed pathological fractures in T5, T6, and T11. The patient at this time was put on broad-spectrum antibiotics and Infectious Disease was consulted. The patient continued to deteriorate from respiratory standpoint. At this time, she was transferred into the [facility]. She was put on BiPAP and her antibiotics were switched. She initially was on daptomycin for her epidural abscess and on Teflaro, and this was changed to meropenem and vancomycin. The patient then continued to improve, however, again started becoming very confused and continued to be in respiratory distress at this time. A BiPAP was placed again. However, the patient was so confused that she was trying to take her BiPAP off. The patient's overall prognosis was very poor given her multiple comorbidities. Even with significant amount of antibiotic use and also with BiPAP, she continued to deteriorate. At this time, her POA, her sister, Rosa, made the patient DNAR and also then hospice. The patient was then discharged to hospice services. PHYSICAL EXAMINATION: VITAL SIGNS: Temperature of 97.6, 95% on 60% high-flow, blood pressure was 110/60, heart rate was 99. GENERAL: She was drowsy, easily arousable. CV: S1 and S2 present. No murmurs, rubs, or gallops. LUNGS: Significant rhonchi all over and mild crackles to bases. ABDOMEN: Soft. Bowel sounds are present x2. EXTREMITIES: 1+ lower extremity edema. NEUROVASCULAR: She is on the BiPAP, arousable with stimulation, however, is unable to conversate and appears very drowsy. Again, the patient will be discharged to hospice today. Job ID: [id number]
== END 2019-02-20 21:34 | disposition expired | DRG 871 ==
LOC: ERS 08:33 → ERHOLD 10:30 → 2NO 16:19 → CCU 02-15 11:14 → IMCU/EMU 02-16 15:03
PROVIDERS: ADMIT Internal Medicine; ATTEND Internal Medicine
DX: A41.9 Sepsis, unspecified organism (principal); J69.0 Pneumonitis due to inhalation of food and vomit; G06.2 Extradural and subdural abscess, unspecified; J96.00 Acute respiratory failure, unspecified whether with hypoxia or hypercapnia; E87.1 Hypo-osmolality and hyponatremia; Z68.41 Body mass index [BMI] 40.0-44.9, adult; M86.8X8 Other osteomyelitis, other site; G93.40 Encephalopathy, unspecified; Z51.5 Encounter for palliative care; Z66 Do not resuscitate; I12.9 Hypertensive chronic kidney disease with stage 1 through stage 4 chronic kidney disease, or unspecified chronic kidney disease; D63.1 Anemia in chronic kidney disease; E78.5 Hyperlipidemia, unspecified; F32.9 Major depressive disorder, single episode, unspecified; N18.3 Chronic kidney disease, stage 3 (moderate); E66.01 Morbid (severe) obesity due to excess calories; Z87.440 Personal history of urinary (tract) infections; Z90.49 Acquired absence of other specified parts of digestive tract; Z88.6 Allergy status to analgesic agent; Z88.1 Allergy status to other antibiotic agents; Z88.0 Allergy status to penicillin; Z88.8 Allergy status to other drugs, medicaments and biological substances
CPT/HCPCS: 36415; 71045; 71250; 80048; 80053; 80202; 81001; 82533; 82805; 83690; 83735; 83880; 83930; 83935; 84100; 84145; 84300; 84484; 85025; 87040; 93005; 94640; 94660; 94760; 96365; 96367; 96375; A4216; C9113; J0360; J1650; J1885; J1940; J2020; J2185; J2920; J2997; J3010; J3370; J3475; J3490; J7050; J7512; J7620

== ENCOUNTER 2019-02-20 10:30 | Inpatient (IN) | payer OTHER ==
[2019-02-20] MEDS ORDERED: Bisacodyl 10 MG SUPP PR PRN (22:28)
[2019-02-20] MEDS ORDERED: Ondansetron PF 4 MG/2 ML Vial SLOW IVP PRN (22:28)
[2019-02-20] MEDS: Lorazepam 2 MG/ML VIAL SLOW IVP PRN (22:45)
[2019-02-20 23:55] VITALS: BMI 41.5
[2019-02-21] MEDS: Fentanyl 100 MCG/2 ML VIAL SLOW IVP SCH ×17 (00:58→23:49)
[2019-02-21] MEDS: Lorazepam 2 MG/ML VIAL SLOW IVP PRN ×2 (03:46→10:40)
[2019-02-21] MEDS ORDERED: Lorazepam 2 MG/ML VIAL SLOW IVP SCH (06:00)
[2019-02-21] MEDS: Lorazepam 2 MG/ML VIAL SLOW IVP SCH ×6 (08:17→23:47)
[2019-02-21] MEDS ORDERED: Fentanyl 100 MCG/2 ML VIAL SLOW IVP SCH (10:00)
[2019-02-22] MEDS: Fentanyl 100 MCG/2 ML VIAL SLOW IVP SCH ×11 (00:25→12:12)
[2019-02-22] MEDS: Lorazepam 2 MG/ML VIAL SLOW IVP PRN ×3 (01:01→03:36)
[2019-02-22] MEDS: Lorazepam 2 MG/ML VIAL SLOW IVP SCH ×2 (03:57→10:04)
[2019-02-22 07:32] VITALS: TEMP 97.6
--- NOTE | 2019-02-23 14:31 | DIS ---
DATE OF ADMISSION: 02/20/2019 DATE OF DISCHARGE: 02/22/2019 DATE OF : 02/22/2019. BRIEF SUMMARY OF HISTORY AND PHYSICAL: The patient was a very unfortunate 63-year-old female who was recently readmitted to the hospital with complaint of shortness of breath after being diagnosed with multifocal pneumonia as well as pathological fractures in T5, T6 and T11. The patient had a longstanding history of an epidural abscess for which she has been on multiple antibiotics and has failed all antibiotic therapy. The patient was on this admission placed on BiPAP. The patient tried to take her BiPAP off due to confusion. She was in a terminal state due to her very poor prognosis and with her comorbidities especially the un-resolving epidural abscess, it was decided by family that the patient would further deteriorate, not improved and was appropriate for hospice. Family wished to withdraw all interventions other than supportive and palliative care and start hospice therapy. BRIEF SUMMARY OF HOSPITAL COURSE: The patient was admitted to inpatient hospice. She stayed in the IM during her palliative care. She was given IV fentanyl due to allergy for morphine for pain. She was given oxygen p.r.n. for comfort and a benzodiazepine IV for anxiety and agitation. Over the next 36 hours, the patient continued to deteriorate. Medications were adjusted to try to improve her symptom control. She was found by nursing staff at 11:35 a.m. with lack of respirations. No pulse was noted. In addition, the patient had no pulse and no blood pressure. She was pronounced at 11:35. Family was by her side and the body was released to [facility] and to the home by patient's family's wishes. CAUSE OF : Multiorgan failure, asystole secondary to cardiac arrhythmia from her sepsis and pneumonia with a long-standing history of epidural abscess. Job ID: [id number]
== END 2019-02-22 13:43 | disposition expired | DRG 951 ==
LOC: IMCU/EMU 10:30
PROVIDERS: ADMIT Internal Medicine; ATTEND Internal Medicine
DX: Z51.5 Encounter for palliative care (principal); A41.9 Sepsis, unspecified organism; J69.0 Pneumonitis due to inhalation of food and vomit; J96.00 Acute respiratory failure, unspecified whether with hypoxia or hypercapnia; G06.2 Extradural and subdural abscess, unspecified; E87.1 Hypo-osmolality and hyponatremia; Z68.41 Body mass index [BMI] 40.0-44.9, adult; N18.9 Chronic kidney disease, unspecified; E66.01 Morbid (severe) obesity due to excess calories; D63.1 Anemia in chronic kidney disease; N18.3 Chronic kidney disease, stage 3 (moderate); K21.9 Gastro-esophageal reflux disease without esophagitis; I12.9 Hypertensive chronic kidney disease with stage 1 through stage 4 chronic kidney disease, or unspecified chronic kidney disease; Z87.440 Personal history of urinary (tract) infections
CPT/HCPCS: J2060; J3010